=== PATIENT | male | born 1950 | race Caucasian/White ===

== ENCOUNTER 2020-03-31 10:24 | Outpatient (REF) | payer MEDICARE, SELFPAY ==
[2020-03-31 11:58] LABS: Prostate Specific Antigen 0.28 ng/mL (<0.05-4.0)
== END 2020-03-31 10:25 | disposition home or self-care (01) ==
LOC: HO.HMGCLDS 10:24
PROVIDERS: PCP Nurse Practitioner Family; Visit Provider Nurse Practitioner Family
DX: R97.20 Elevated prostate specific antigen [PSA] (principal); Z12.5 Encounter for screening for malignant neoplasm of prostate
CPT/HCPCS: 84153

== ENCOUNTER 2020-05-07 10:35 | Outpatient (REF) | payer MEDICARE, SELFPAY ==
[2020-05-07 14:56] LABS: Hematocrit 42.7 % (42-52); Hemoglobin 14.4 g/dl (14.0-18.0); Mean Corpuscular HGB Conc 33.7 g/dl (31.0-36.0); Mean Corpuscular Hemoglobin 31.7 pg (27.0-33.0); Mean Corpuscular Volume 94.1 fL (80-98); Mean Platelet Volume 10.9 fL (9.4-12.4); Platelet Count 146 X10*3/uL (160-400); Red Blood Count 4.54 X10*6/uL (4.60-5.80); Red Cell Distribution Width 12.8 % (11.0-16.0); White Blood Count 7.9 X10*3/uL (4.8-10.8)
[2020-05-07 15:10] LABS: Prothrombin Time 12.3 SEC (10.8-13.0)
[2020-05-07 15:29] LABS: Anion Gap 13 (12-20); Blood Urea Nitrogen 29 mg/dL (9-16); Carbon Dioxide 29 mmol/L (22-29); Chloride 104 mmol/L (96-108); Cholesterol 124 mg/dL; Estimated Glomerular Filt Rate > 60; Glucose Random 102 mg/dL (60-115); HDL Cholesterol 42 mg/dL; LDL Cholesterol Calculated 59 mg/dl; Potassium 4.5 mmol/l (3.3-5.1); Sodium 141 mmol/L (135-145); Triglycerides 116 mg/dL
== END 2020-05-07 10:36 | disposition home or self-care (01) ==
LOC: HO.LAB 10:35
PROVIDERS: PCP Nurse Practitioner Family; Visit Provider Internal Medicine Cardiovascular Disease
DX: I25.118 Atherosclerotic heart disease of native coronary artery with other forms of angina pectoris (principal); I10 Essential (primary) hypertension; I25.2 Old myocardial infarction; Z79.899 Other long term (current) drug therapy; Z79.82 Long term (current) use of aspirin; Z79.01 Long term (current) use of anticoagulants
CPT/HCPCS: 36415; 80048; 80061; 85027; 85610; Q3014

== ENCOUNTER → 2020-05-25 11:03 | Outpatient (BNVA) | payer MEDICARE, SELFPAY | PROVIDERS: PCP Nurse Practitioner Family; Visit Provider Nurse Practitioner Family | DX: I25.118 Atherosclerotic heart disease of native coronary artery with other forms of angina pectoris (principal); I10 Essential (primary) hypertension; E78.5 Hyperlipidemia, unspecified; Z95.1 Presence of aortocoronary bypass graft; Z79.899 Other long term (current) drug therapy | CPT/HCPCS: 99212 ==

== ENCOUNTER → 2020-07-06 12:38 | Outpatient (BNVA) | payer MEDICARE, SELFPAY | PROVIDERS: PCP Nurse Practitioner Family; Visit Provider Internal Medicine Cardiovascular Disease | DX: I25.10 Atherosclerotic heart disease of native coronary artery without angina pectoris (principal); E78.5 Hyperlipidemia, unspecified | CPT/HCPCS: 99212 ==

== ENCOUNTER 2020-07-28 08:56 | Outpatient (REF) | payer MEDICARE, SELFPAY ==
--- NOTE | ~2020-07-28 | XR_ITS ---
EXAMINATION: XR HAND, LEFT CLINICAL INFORMATION: Pain COMPARISON: None TECHNIQUE: PA, lateral, and oblique views of the left hand. FINDINGS: Bone alignment is normal. No fracture or dislocation is seen. There is arthritis at the first FPC joint and IP joints with joint space narrowing and osteophyte formation. There is also mild arthritis with joint space narrowing and small osteophyte at the first MCP joint. There is a small radiopaque soft tissue foreign body adjacent to the radial volar middle phalanx of the third finger near the PIP joint. XR/XR hand LT min 3V IMPRESSION: Arthritis at the first FPC joint and IP joints. Small soft tissue foreign body in the third finger.
[2020-07-28 11:57] LABS: Alanine Aminotransferase 22 U/L (0-40); Albumin Level 4.3 g/dL (3.5-5.0); Alkaline Phosphatase 55 U/L (39-117); Anion Gap 11 (12-20); Aspartate Amino Transferase 29 U/L (5-37); Bilirubin Total 0.8 mg/dL (0.0-1.0); Blood Urea Nitrogen 26 mg/dL (9-16); Carbon Dioxide 28 mmol/L (22-29); Chloride 106 mmol/L (96-108); Estimated Glomerular Filt Rate > 60; Glucose Fasting 87 mg/dL (60-99); Potassium 4.4 mmol/L (3.3-5.1); Sodium 141 mmol/L (135-145); Total Protein 6.9 g/dL (6.5-8.0)
[2020-07-28 12:05] LABS: Prostate Specific Antigen 0.84 ng/mL (<0.05-4.0); TSH reflex Free T4 0.64 uIU/mL (0.32-4.0)
== END 2020-07-28 08:57 | disposition home or self-care (01) ==
LOC: HO.HMGCLDS 08:56
PROVIDERS: PCP Nurse Practitioner Family; Visit Provider Nurse Practitioner Family
DX: M79.642 Pain in left hand (principal); I10 Essential (primary) hypertension; R97.20 Elevated prostate specific antigen [PSA]; Z12.5 Encounter for screening for malignant neoplasm of prostate
CPT/HCPCS: 36415; 73130; 80053; 84153; 84443

== ENCOUNTER → 2020-08-16 09:55 | Outpatient (BNVA) | payer MEDICARE, SELFPAY | PROVIDERS: Visit Provider Orthopaedic Surgery | DX: M65.332 Trigger finger, left middle finger (principal) | CPT/HCPCS: 20550; 99202; J1100 ==

== ENCOUNTER 2020-09-03 08:22 | Outpatient (REF) | payer MEDICARE, SELFPAY ==
[2020-09-03 09:36] LABS: Cholesterol 108 mg/dL; HDL Cholesterol 46 mg/dL; LDL Cholesterol Calculated 50 mg/dl; Triglycerides 60 mg/dL
== END 2020-09-03 08:23 | disposition home or self-care (01) ==
LOC: HO.LAB 08:22
PROVIDERS: PCP Nurse Practitioner Family; Visit Provider Internal Medicine Cardiovascular Disease
DX: I25.10 Atherosclerotic heart disease of native coronary artery without angina pectoris (principal)
CPT/HCPCS: 36415; 80061

== ENCOUNTER → 2020-09-06 12:53 | Outpatient (BNVA) | payer MEDICARE, SELFPAY | PROVIDERS: PCP Nurse Practitioner Family; Visit Provider Internal Medicine Cardiovascular Disease | DX: I25.10 Atherosclerotic heart disease of native coronary artery without angina pectoris (principal); I10 Essential (primary) hypertension | CPT/HCPCS: 99212 ==

== ENCOUNTER 2020-10-14 08:39 | Outpatient (REF) | payer MEDICARE, SELFPAY ==
[2020-10-14 12:15] LABS: Prostate Specific Antigen 1.12 ng/mL (<0.05-4.0)
== END 2020-10-14 08:40 | disposition home or self-care (01) ==
LOC: HO.HMGCLDS 08:39
PROVIDERS: PCP Nurse Practitioner Family; Visit Provider Nurse Practitioner Family
DX: Z12.5 Encounter for screening for malignant neoplasm of prostate (principal); C61 Malignant neoplasm of prostate
CPT/HCPCS: 36415; 84153

== ENCOUNTER 2020-12-23 08:38 | Outpatient (REF) | payer MEDICARE, SELFPAY ==
[2020-12-23 11:50] LABS: Cholesterol 110 mg/dL; HDL Cholesterol 44 mg/dL; LDL Cholesterol Calculated 54 mg/dl; Triglycerides 60 mg/dL
== END 2020-12-23 08:39 | disposition home or self-care (01) ==
LOC: HO.HMGCLDS 08:38
PROVIDERS: PCP Nurse Practitioner Family; Visit Provider Internal Medicine Cardiovascular Disease
DX: I25.10 Atherosclerotic heart disease of native coronary artery without angina pectoris (principal)
CPT/HCPCS: 36415; 80061

== ENCOUNTER 2020-12-29 08:07 | Outpatient (REF) | payer MEDICARE, SELFPAY ==
[2020-12-29 11:51] LABS: Prostate Specific Antigen Scr 1.77 ng/mL (<0.05-4.0)
== END 2020-12-29 08:08 | disposition home or self-care (01) ==
LOC: HO.HMGCLDS 08:07
PROVIDERS: PCP Nurse Practitioner Family; Visit Provider Nurse Practitioner Family
DX: Z12.5 Encounter for screening for malignant neoplasm of prostate (principal); R97.20 Elevated prostate specific antigen [PSA]
CPT/HCPCS: 36415; 84153

== ENCOUNTER → 2020-12-30 12:28 | Outpatient (BNVA) | payer MEDICARE, SELFPAY | PROVIDERS: PCP Nurse Practitioner Family; Referring Provider Nurse Practitioner Family; Visit Provider Internal Medicine Cardiovascular Disease | DX: I25.118 Atherosclerotic heart disease of native coronary artery with other forms of angina pectoris (principal); I10 Essential (primary) hypertension | CPT/HCPCS: 99212 ==

== ENCOUNTER 2021-02-02 10:38 | Outpatient (REF) | payer MEDICARE, SELFPAY ==
[2021-02-02 14:20] LABS: Alanine Aminotransferase 24 U/L (0-40); Albumin Level 4.3 g/dL (3.5-5.0); Alkaline Phosphatase 53 U/L (39-117); Anion Gap 11 (12-20); Aspartate Amino Transferase 38 U/L (5-37); Bilirubin Total 1.2 mg/dL (0.0-1.0); Blood Urea Nitrogen 30 mg/dL (9-16); Calcium 9.6 mg/dL (8.4-10.2); Carbon Dioxide 27 mmol/L (22-29); Chloride 105 mmol/L (96-108); Estimated Glomerular Filt Rate > 60; Glucose Random 91 mg/dL (60-115); Potassium 4.4 mmol/L (3.3-5.1); Sodium 139 mmol/L (135-145); Total Protein 6.7 g/dL (6.5-8.0)
[2021-02-02 14:24] LABS: Estimated Average Glucose 103 mg/dL; Hemoglobin A1c % 5.2 %
== END 2021-02-02 10:39 | disposition home or self-care (01) ==
LOC: HO.HMGCLDS 10:38
PROVIDERS: PCP Nurse Practitioner Family; Visit Provider Nurse Practitioner Family
DX: I10 Essential (primary) hypertension (principal)
CPT/HCPCS: 36415; 80053; 83036

== ENCOUNTER 2021-03-04 09:30 | Outpatient (RCR) | payer MEDICARE, SELFPAY ==
--- NOTE | 2021-03-04 10:52 | MHC.OT.DC ---
[address] [phone] F: [phone] Occupational Therapy Discharge Note Provider: Hawk Charles MD Diagnosis: Trigger finger, left middle finger Date of Surgery: Date of Evaluation: 01/12/21 Date of Discharge: 03/04/21 Treatments to Date: 9 Cancellations to Date: 0 No Shows to Date: Discharge Status: Achieved Goals Improved Function Independent with HEP Discharge Summary: Pt indep with self management of left trigger finger with use of night orthosis and digit based MCP flexion block to avoid tight fist with work type activities. PIP jt contracture improved. Pain improving . Able to self correct trigger finger with active ext with pain at 4/10. Con't constant locking with full active digit flexion , no residual pain with active ext. Electronically Signed By: Heather Bonilla OT CHT CLT Reviewed/agree with student documentation: N/A Therapist: Please Sign and return to therapist, thank you for your referral.
== END 2021-03-04 10:53 | disposition home or self-care (01) ==
LOC: HO.OT 09:30
PROVIDERS: PCP Nurse Practitioner Family; Visit Provider Nurse Practitioner Family
DX: M65.332 Trigger finger, left middle finger (principal)
CPT/HCPCS: 29130; 97035; 97110; 97140; 97165; 97760

== ENCOUNTER 2021-04-14 12:39 | Outpatient (REF) | payer MEDICARE, SELFPAY | END 2021-04-14 12:40 | disposition home or self-care (01) | LOC: HO.HMGCLDS 12:39 | PROVIDERS: PCP Nurse Practitioner Family; Visit Provider Internal Medicine | DX: Z20.822 Contact with and (suspected) exposure to COVID-19 (principal) | CPT/HCPCS: C9803; U0003; U0005 ==

== ENCOUNTER 2021-04-15 18:37 | Emergency (ER) | payer MEDICARE, SELFPAY ==
--- NOTE | ~2021-04-15 | CT_ITS ---
EXAMINATION: CT ANGIOGRAM OF THE CHEST WITH AND WITHOUT CONTRAST (CT PULMONARY ANGIOGRAM FOR PE) CLINICAL INFORMATION: Reason for Exam near syncope, SOB COMPARISON: Chest x-ray 04/15/2021 TECHNIQUE: Prior to contrast administration, noncontrast localization images were obtained. Subsequently, multidetector volumetric imaging was performed from the thoracic inlet to below the diaphragms following the administration of 85 mL Omnipaque 350 intravenous contrast. No contrast reaction reported Sagittal, coronal, and MIP oblique sagittal reformatted images were obtained on the CT workstation, uploaded to PACS, and reviewed. This CT examination was performed using dose optimization techniques as appropriate, variously including the following: *Automated exposure control *Adjustment of mA and/or kV according to patient size (this includes techniques or standardized protocols for targeted exams where dose is matched to indication/reason for exam; i.e. extremities or head) *Use of iterative reconstruction technique Total exam dose-length product 312 mGy-cm FINDINGS: QUALITY OF STUDY/CONTRAST BOLUS: Satisfactory. PULMONARY ARTERIES: No central or segmental pulmonary emboli. THORACIC AORTA: No aneurysm or dissection. LUNG: No focal consolidation, nodules or masses. PLEURA: No pleural effusion or pneumothorax. MEDIASTINUM: Normal heart size. Status post CABG. No pericardial effusion. No hilar or mediastinal lymphadenopathy. No evidence of septal bowing or right heart strain. CHEST WALL/AXILLA: No axillary or internal mammary lymphadenopathy. OSSEOUS STRUCTURES: No acute or suspicious osseous abnormality. Status post median sternotomy. Multilevel degenerative spondylosis of the dorsal spine. UPPER ABDOMEN: Unremarkable. No reflux of contrast into the hepatic veins to suggest elevated right heart pressures. CT/CT angio chest PE protocol IMPRESSION: No acute abnormality the chest. No evidence of pulmonary embolism. VTE: negative
--- NOTE | ~2021-04-15 | XR_ITS ---
EXAMINATION: XR CHEST CLINICAL INFORMATION: Near syncope. Covid positive. COMPARISON: 04/18/2016 TECHNIQUE: Frontal view of the chest was obtained. FINDINGS: Median sternotomy wires appear intact. Surgical clips overlie the mediastinum. The lungs are well expanded. There is no focal consolidation, edema, or effusion. No pneumothorax. The cardiomediastinal silhouette is within normal limits. No acute osseous abnormality. XR/XR chest 1V IMPRESSION: Clear lungs.
[2021-04-15 18:56] VITALS: BP 138/86; PULSE 67; RESP 18; TEMP 38.1; O2SAT 96; BMI 26.5
--- NOTE | 2021-04-15 19:01 | ECG_ITS ---
Test Reason : NEAR SYNCOPE Blood Pressure : / mmHG Vent. Rate : 067 BPM Atrial Rate : 067 BPM P-R Int : 144 ms QRS Dur : 088 ms QT Int : 448 ms P-R-T Axes : 047 028 016 degrees QTc Int : 473 ms Normal sinus rhythm Nonspecific T wave abnormality Anterolateral leads Abnormal ECG When compared with ECG of 02-OCT-2013 20:08, Nonspecific T wave abnormality, improved in Anterior leads T wave amplitude has decreased in Lateral leads Referred By: Generic ED Physician Electronically Signed By:SAPPHIRE ENRIQUEZ MD
--- NOTE | 2021-04-15 19:26 | ED.GENADULT ---
HPI - General Adult General Chief complaint: General Medical Stated complaint: Fatigue +Covid Time Seen by Provider: 04/15/21 19:22 Source: patient Mode of arrival: ambulatory Limitations: no limitations History of Present Illness HPI narrative: 70-year-old male with history CAD s/p CABG, IA s/p stent, HLD, post-op atrial fibrillation, history of prostate cancer currently getting treated [facility] with plans to start radiation in June who presents to the ER per recommendations of his primary care doctor with reports of presyncope yesterday. He was just diagnosed with COVID-19 yesterday. He reports a near syncopal episode yesterday where he had tunnel vision and felt like things were going black after he got up from the couch and went to the kitchen to get himself some soda. He lowered himself to the ground and symptoms resolved with rest. He has not been eating and drinking normally. Today he only had half a pancake and went right through him, he had an episode of diarrhea that was nonbloody. No abdominal pain. Lack of appetite noted. He also has other signs and symptoms of COVID-19 including loss of appetite, fevers, loss of taste nasal congestion and body aches. He denies any shortness of breath or chest pain. He is extremely fatigued and tired which are his biggest complaints. He reports a history of syncope several years ago after his cardiac surgery when he was started on multiple new cardiac medications. MD complaint: pre-syncope Onset (ago): day(s) (1) Location: head Radiation: non-radiation Severity: moderate Relieving factors: rest Exacerbating factors: movement Associated symptoms: fever/chills, headaches, loss of appetite, malaise and weakness Treatments prior to arrival: none Related Data Home Medications Medication Instructions Recorded Confirmed aspirin 81 mg tablet,delayed 81 mg PO DAILY 03/30/20 12/30/20 release (Adult Aspirin Regimen) multivitamin 1 tab PO DAILY 03/30/20 12/30/20 bicalutamide 50 mg tablet 50 mg PO DAILY 02/03/21 Previous Rx's Medication Instructions Recorded nitroglycerin 0.4 mg sublingual 0.4 mg SUBLINGUAL Q5M PRN #25 tab 09/22/20 tablet (Nitrostat) atorvastatin 80 mg tablet 80 mg PO DAILY #90 tab 12/01/20 metoprolol succinate 25 mg 25 mg PO DAILY #90 tab 12/01/20 tablet,extended release 24 hr isosorbide mononitrate 30 mg 30 mg PO DAILY #30 tab 02/05/21 tablet,extended release 24 hr ezetimibe 10 mg tablet 10 mg PO DAILY #90 tab 03/07/21 clopidogrel 75 mg tablet (Plavix) 75 mg PO DAILY 90 Days #90 tab 03/31/21 amlodipine 5 mg tablet (Norvasc) 5 mg PO DAILY #30 tab 04/05/21 Allergies Allergy/AdvReac Type Severity Reaction Status Date / Time No Known Allergies Allergy Verified 04/15/21 18:56 Review of Systems Review of Systems: Constitutional: No Fever, No Chills ENT/Mouth: No sore throat, No Rhinorrhea, No Swallowing Difficulty Eyes: No Eye Pain, No Swelling, No Redness Cardiovascular: No Chest Pain, No SOB, No Orthopnea, No Edema Respiratory: No Cough, No Sputum, No Wheezing, + dyspnea (very mild w/ exertion) Gastrointestinal: + Nausea, No Vomiting, + Diarrhea, No abdominal Pain, No Hematochezia, No Melena Genitourinary: No Dysuria, No Urinary Frequency, No Hematuria Musculoskeletal: No joint pain, + Myalgias Skin: No Skin Lesions, No rash Neuro: + Weakness, No Numbness, + Dizziness, + Headache Psych: No Anxiety/Panic, No Depression Heme/Lymph: No Bruising, No Lymphadenopathy Endocrine: No Polyuria, No Polydipsia PMFSH Past Medical History Medical History (Updated 04/15/21 @ 22:59 by KVNG Guardado) Anemia CAD (coronary artery disease) Chronic renal disease Dyslipidemia HTN (hypertension) NSTEMI (non-ST elevated myocardial infarction) PAF (paroxysmal atrial fibrillation) Prostate CA Surgical History Hx of CABG (~08/2018) Hx of prostatectomy S/P cardiac cath (~05/2020) Stented coronary artery Family History Family History Father CVD (cardiovascular disease) Mother No problems noted. Brother CVD (cardiovascular disease) Social History Social History Advance Directives: No Physical Exam Vital Signs: Vital Signs: Last Vital Signs Temp 99.3 F 04/16/21 00:36 Pulse 48 L 04/16/21 00:36 Resp 18 04/16/21 00:36 BP 135/66 04/16/21 00:36 Pulse Ox 96 04/16/21 00:36 Body Mass Index 26.5 Appearance: Alert. Oriented X3. No acute distress. He appears well. Eyes: Pupils equal, round and reactive to light. ENT: Pharynx normal. Neck: Normal inspection. Neck supple. CVS: Normal heart rate and rhythm. Pulses normal. Respiratory: No respiratory distress. Breath sounds normal. Abdomen: Soft and nontender. +BS x4 Skin: Skin warm and dry. Normal skin color. Normal skin turgor. No rashes. Extremities: No lower extremity edema. No calf tenderness. Neuro: Oriented X 3. No motor deficit. No sensory deficit. Steady on his feet. Course Course Course Narrative: 70-year-old male with a history of CAD status post stent and CABG, history of prostate cancer status post prostatectomy with plan to start radiation who presents to the ER with presyncope in the setting of being diagnosed with COVID-19. He feels much better than he does yesterday. His vital signs are reassuring, although he does have some low-grade fever. He has no chest pain or shortness of breath. He is at risk for pulmonary embolism with his active prostate cancer and COVID-19 status. Will need to rule out PE. Will get EKG, orthostatic vital signs and basic lab workup. He appears well. Reevaluation(s) Reevaluation #1: Orthostatic vital signs are positive with a decrease in systolic blood pressure from 159 supine to 101 standing. Heart rate remained stable 65. He was not dizzy or lightheaded. He is getting IV fluids. Will plan to repeat after IV hydration. D-dimer was elevated and 374. CT of the chest does not show any PEs, lungs are clear. Will re-evaluate orthostatic vital signs after IV fluids. He is hopeful to be able to be discharged home. Reevaluation #2: Repeat orthostatic vital signs after 2 L IV fluids remain positive, although less so. His blood pressure dropped from 130 to 100 systolic. Heart rates remained stable. He remained asymptomatic. Given his COVID positive state and inability to aggressively hydrate will hold off on further IV fluids at this time. He feels much better when like to be discharged home. We discussed importance of increasing oral hydration and eating adequate PO. Comfortable with discharge home with plan to increase oral hydration, hold his antihypertensives for the next 2 days and monitor his blood pressures at home. He agrees to come back to the ER if he feels any symptoms of pre-syncope again. He will follow-up with his doctor early next week. Stable for discharge home. Medical Decision Making Lab Data Result diagrams: 04/15/21 20:18 04/15/21 20:18 Labs: Lab Results 04/15/21 04/15/21 04/15/21 Range/Units 20:18 20:18 20:18 WBC 8.6 (4.8-10.8) X10*3/uL RBC 4.77 (4.60-5.80) X10*6/uL Hgb 15.3 (14.0-18.0) g/dl Hct 44.2 (42.0-52.0) % MCV 92.7 (80.0-98.0) fL MCH 32.1 (27.0-33.0) pg MCHC 34.6 (31.0-36.0) g/dl RDW 13.1 (11.0-16.0) % Plt Count 96 L (160-400) X10*3/uL MPV 11.0 (9.4-12.4) fL Immature Gran % (Auto) 0.2 (0.0-0.4) % Neut % (Auto) 72.5 (45-73) % Lymph % (Auto) 16.2 L (20-40) % [place] % (Auto) 11.0 (2-11) % Eos % (Auto) 0.0 (0-4) % Baso % (Auto) 0.1 (0-2) % Lymph # (Auto) 1.4 (1.2-4.9) X10*3/uL [place] # (Auto) 1.0 (0.1-1.2) X10*3/uL Eos # (Auto) 0.0 (0.0-0.4) X10*3/uL Baso # (Auto) 0.0 (0.0-0.2) X10*3/uL Abs Immat Gran (auto) 0.02 (0.00-0.03) X10*3/uL Absolute Neuts (auto) 6.3 (2.0-8.3) x10*3/uL Absolute Nucleated RBC 0.000 (0.0-0.012) X10*3/uL Nucleated RBC % (auto) 0.0 (0.0-0.2) /100WBC Smear Tech's Comments VERIFIED D-Dimer NG/ML Sodium 138 (135-145) mmol/L Potassium 4.2 (3.3-5.1) mmol/L Chloride 103 (96-108) mmol/L Carbon Dioxide 25 (22-29) mmol/L Anion Gap 14 (12-20) BUN 35 H (9-16) mg/dL Creatinine 1.59 H (0.5-1.4) mg/dL Estim Creat Clear Calc 44.6 Estimated GFR 43 Random Glucose 104 (60-115) mg/dL Calcium 8.9 D (8.4-10.2) mg/dL Total Bilirubin (0.0-1.0) mg/dL Direct Bilirubin (0.0-0.5) mg/dL AST (5-37) U/L ALT (0-40) U/L Alkaline Phosphatase (39-117) U/L Troponin I High Sens 21.5 (<3.5-35.0) ng/L C-Reactive Protein (< or = 0.50) mg/dL Total Protein (6.5-8.0) g/dL Albumin (3.5-5.0) g/dL 04/15/21 04/15/21 Range/Units 20:18 20:18 WBC (4.8-10.8) X10*3/uL RBC (4.60-5.80) X10*6/uL Hgb (14.0-18.0) g/dl Hct (42.0-52.0) % MCV (80.0-98.0) fL MCH (27.0-33.0) pg MCHC (31.0-36.0) g/dl RDW (11.0-16.0) % Plt Count (160-400) X10*3/uL MPV (9.4-12.4) fL Immature Gran % (Auto) (0.0-0.4) % Neut % (Auto) (45-73) % Lymph % (Auto) (20-40) % [place] % (Auto) (2-11) % Eos % (Auto) (0-4) % Baso % (Auto) (0-2) % Lymph # (Auto) (1.2-4.9) X10*3/uL [place] # (Auto) (0.1-1.2) X10*3/uL Eos # (Auto) (0.0-0.4) X10*3/uL Baso # (Auto) (0.0-0.2) X10*3/uL Abs Immat Gran (auto) (0.00-0.03) X10*3/uL Absolute Neuts (auto) (2.0-8.3) x10*3/uL Absolute Nucleated RBC (0.0-0.012) X10*3/uL Nucleated RBC % (auto) (0.0-0.2) /100WBC Smear Tech's Comments D-Dimer 374 NG/ML Sodium (135-145) mmol/L Potassium (3.3-5.1) mmol/L Chloride (96-108) mmol/L Carbon Dioxide (22-29) mmol/L Anion Gap (12-20) BUN (9-16) mg/dL Creatinine (0.5-1.4) mg/dL Estim Creat Clear Calc Estimated GFR Random Glucose (60-115) mg/dL Calcium (8.4-10.2) mg/dL Total Bilirubin 0.7 (0.0-1.0) mg/dL Direct Bilirubin 0.3 (0.0-0.5) mg/dL AST 55 H (5-37) U/L ALT 35 (0-40) U/L Alkaline Phosphatase 48 (39-117) U/L Troponin I High Sens (<3.5-35.0) ng/L C-Reactive Protein 1.05 H (< or = 0.50) mg/dL Total Protein 6.9 (6.5-8.0) g/dL Albumin 4.1 (3.5-5.0) g/dL ECG Data Attestation: I personally reviewed and interpreted this ECG as follows: Prior ECG tracings: available for review Interpretation: normal sinus rhythm, HR 67 bpm, normal NV interval, No ST segment elevations or depressions. Critical Care Time Critical Care Time Critical Care Time: Yes Total Critical Care Time: 40 Attestation: I have personally provided critical care time exclusive of time spent on separately billable procedures. Time includes review of lab data, radiology results, discussion with consultants, and monitoring for potential decompensation. Intervention performed as documented. Discharge Plan Discharge Clinical Impression: COVID-19, Orthostatic hypotension Patient Disposition: Home, Self-Care Instructions: Covid-19 Viral Syndrome and Novel Coronavirus (ED) Hey/Ath, Dehydration (ED) Additional Instructions: Your CT scan today did not show any blood clots in her lungs. Your lungs are clear. This is a good prognostic factor for COVID. Your labs show dehydration and mild kidney injury due to dehydration. Your blood pressure also dropped significantly when you went from lying to standing, this is the most likely cause your sensation of almost passing out yesterday. This should improve after IV fluids and a increasing oral hydration at home. Recommend following up with your doctor for repeat blood work to re-check your kidneys. Recommend holding her blood pressure medications for the next 2 days. If you have a blood pressure cuff at home recommend monitoring her blood pressure in the morning and again at night. Drink plenty of water and Gatorade and make sure you are eating adequately. If you feel dizzy, lightheaded or like you may pass out call 911 or come back to the ER for further evaluation. Prescriptions: No Action nitroglycerin [Nitrostat] 0.4 mg tablet, sublingual 0.4 mg sublingual Q5M PRN (Reason: chest pain) Qty: 25 RF: 2 atorvastatin 80 mg tablet 80 mg PO DAILY Qty: 90 RF: 3 metoprolol succinate 25 mg tablet extended release 24 hr 25 mg PO DAILY Qty: 90 RF: 3 isosorbide mononitrate 30 mg tablet extended release 24 hr 30 mg PO DAILY Qty: 30 RF: 5 ezetimibe 10 mg tablet 10 mg PO DAILY Qty: 90 RF: 3 clopidogrel [Plavix] 75 mg tablet 75 mg PO DAILY 90 Days Qty: 90 RF: 3 amlodipine [Norvasc] 5 mg tablet 5 mg PO DAILY Qty: 30 RF: 5 aspirin [Adult Aspirin Regimen] 81 mg tablet,delayed release (DR/EC) 81 mg PO DAILY RF: 0 multivitamin Tablet 1 tab PO DAILY RF: 0
[2021-04-15 20:24] LABS: Basophils Percent Auto 0.1 % (0-2); Hemoglobin 15.3 g/dl (14.0-18.0); MANUAL DIFF FLAG SCAN; Mean Corpuscular Hemoglobin 32.1 pg (27.0-33.0); PLT CLUMP 1; Red Blood Count 4.77 X10*6/uL (4.60-5.80); Red Cell Distribution Width 13.1 % (11.0-16.0); SCAN SMEAR FLAG 1
[2021-04-15 20:26] LABS: Hematocrit 44.2 % (42.0-52.0); Imm Gran Abs Auto 0.02 X10*3/uL (0.00-0.03); Imm Gran Pct Auto 0.2 % (0.0-0.4); Lymphocytes Absolute Auto 1.4 X10*3/uL (1.2-4.9); Lymphocytes Percent Auto 16.2 % (20-40); Mean Corpuscular HGB Conc 34.6 g/dl (31.0-36.0); Mean Corpuscular Volume 92.7 fL (80.0-98.0); Neutrophils Absolute Auto 6.3 x10*3/uL (2.0-8.3); Neutrophils Percent Auto 72.5 % (45-73); White Blood Count 8.6 X10*3/uL (4.8-10.8)
[2021-04-15 20:27] LABS: Platelet Count 96 X10*3/uL (160-400)
[2021-04-15 20:32] LABS: D Dimer 374 NG/ML
[2021-04-15 20:33] VITALS: BP 159/84; PULSE 65
[2021-04-15 20:34] VITALS: BP 101/57; BP 135/80; PULSE 60; PULSE 65
[2021-04-15 20:35] VITALS: BP 101/57; PULSE 65; RESP 20; TEMP 38.1; O2SAT 98
[2021-04-15 20:37] LABS: Anion Gap 14 (12-20); Blood Urea Nitrogen 35 mg/dL (9-16); Calcium 8.9 mg/dL (8.4-10.2); Carbon Dioxide 25 mmol/L (22-29); Chloride 103 mmol/L (96-108); Creatinine Clr Calc Pharmacy 44.6; Estimated Glomerular Filt Rate 43; Glucose Random 104 mg/dL (60-115); Potassium 4.2 mmol/L (3.3-5.1); Sodium 138 mmol/L (135-145)
[2021-04-15 20:42] LABS: Alanine Aminotransferase 35 U/L (0-40); Albumin Level 4.1 g/dL (3.5-5.0); Alkaline Phosphatase 48 U/L (39-117); Aspartate Amino Transferase 55 U/L (5-37); Bilirubin Direct 0.3 mg/dL (0.0-0.5); Bilirubin Total 0.7 mg/dL (0.0-1.0); C Reactive Protein 1.05 mg/dL (< or = 0.50); Total Protein 6.9 g/dL (6.5-8.0)
[2021-04-15 20:43] LABS: Troponin-I High Sensitivity 21.5 ng/L (<3.5-35.0)
[2021-04-15 20:52] LABS: SLIDE REVIEW VERIFIED
[2021-04-15] MEDS: iohexoL 350 MG/ML 100 ML INFUS..BTL IV (20:59)
[2021-04-15] MEDS: Acetaminophen 325 MG TABLET 650 MG PO (21:07)
[2021-04-15] MEDS: 0.9 % Sodium Chloride 1,000 ML 999 ML IVCONT ×2 (21:07→22:53)
[2021-04-15 22:00] VITALS: BP 121/65; PULSE 52; RESP 16; TEMP 37.2; O2SAT 95
[2021-04-15 23:51] VITALS: BP 135/66; PULSE 48
[2021-04-16 00:36] VITALS: BP 104/61; BP 105/64; BP 135/66; PULSE 48; PULSE 50; PULSE 56; RESP 18; TEMP 37.4; O2SAT 96
== END 2021-04-16 01:07 | disposition home or self-care (01) ==
PROVIDERS: Physician Assistant; Emergency Provider Internal Medicine; PCP Nurse Practitioner Family
DX: U07.1 COVID-19 (principal); I95.1 Orthostatic hypotension; I25.10 Atherosclerotic heart disease of native coronary artery without angina pectoris; I12.9 Hypertensive chronic kidney disease with stage 1 through stage 4 chronic kidney disease, or unspecified chronic kidney disease; N18.9 Chronic kidney disease, unspecified; I48.0 Paroxysmal atrial fibrillation; C61 Malignant neoplasm of prostate; I25.2 Old myocardial infarction; Z95.1 Presence of aortocoronary bypass graft; Z95.5 Presence of coronary angioplasty implant and graft
CPT/HCPCS: 36415; 71045; 71275; 80048; 80076; 84484; 85025; 85379; 86140; 93005; 96360; 96361; 99284; 99291; Q9967

== ENCOUNTER 2021-04-18 12:00 | Emergency (ER) | payer MEDICARE, SELFPAY ==
[2021-04-18] VITALS (7 sets, daily range): BP systolic 86–195; BP diastolic 51–91; PULSE 47–69; RESP 16–18; TEMP 36.8–37.3; O2SAT 95–98; BMI 26.5
--- NOTE | 2021-04-18 15:06 | ED.GENADULT ---
HPI - General Adult General Chief complaint: General Medical Stated complaint: low blood pressure Time Seen by Provider: 04/18/21 14:55 Source: patient and old records reviewed History of Present Illness HPI narrative: Patient with known COVID positive status. For symptom was approximately 8 days ago. He was diagnosed 4 days ago when visited the emergency department. He states his main complaint has been some diarrhea and feeling weak. He denies any respiratory symptoms such as shortness of breath or significant cough. No chest pain. He presents today because he felt weak and at home he took his blood pressure and it was systolic of 70. He states when he was here last time he was dehydrated and received 2 L of IV fluid. That made him temporarily feels significantly better. He states he is still having some diarrhea approximately 2-3 episodes today. Less than it was before. His p.o. intake is decreased and he states he eats once a day and has maybe 5 drinks of water. He states he is not urinating a lot. In review of his records from his visit 4 days ago his creatinine was little bit elevated. Head CT scan at that time which showed no evidence of PE or pulmonary parenchymal disease. He denies dyspnea. Related Data Home Medications Medication Instructions Recorded Confirmed aspirin 81 mg tablet,delayed 81 mg PO DAILY 03/30/20 12/30/20 release (Adult Aspirin Regimen) multivitamin 1 tab PO DAILY 03/30/20 12/30/20 bicalutamide 50 mg tablet 50 mg PO DAILY 02/03/21 Previous Rx's Medication Instructions Recorded nitroglycerin 0.4 mg sublingual 0.4 mg SUBLINGUAL Q5M PRN #25 tab 09/22/20 tablet (Nitrostat) atorvastatin 80 mg tablet 80 mg PO DAILY #90 tab 12/01/20 metoprolol succinate 25 mg 25 mg PO DAILY #90 tab 12/01/20 tablet,extended release 24 hr isosorbide mononitrate 30 mg 30 mg PO DAILY #30 tab 02/05/21 tablet,extended release 24 hr ezetimibe 10 mg tablet 10 mg PO DAILY #90 tab 03/07/21 clopidogrel 75 mg tablet (Plavix) 75 mg PO DAILY 90 Days #90 tab 03/31/21 amlodipine 5 mg tablet (Norvasc) 5 mg PO DAILY #30 tab 04/05/21 Allergies Allergy/AdvReac Type Severity Reaction Status Date / Time No Known Allergies Allergy Verified 04/18/21 12:24 Review of Systems Constitutional: Comments: Feeling generally weak tired. No fevers or body aches ENT: Comments: No sore throat Cardiovascular: Comments: No chest pain Respiratory: Comments: No cough or shortness of breath Gastrointestinal: Comments: No abdominal pain or nausea vomiting. Decreased appetite. Positive diarrhea Musculoskeletal: Comments: No peripheral edema or calf tenderness Integumentary/Breasts: Comments: No rash Hematologic/Lymphatic: Comments: History of prostate cancer and is due for radiation therapy. He is currently on hormonal therapy but no other chemotherapy [facility] Past Medical History Medical History (Updated 04/18/21 @ 19:02 by Faustino Salgado MD) Anemia CAD (coronary artery disease) Chronic renal disease Dyslipidemia HTN (hypertension) NSTEMI (non-ST elevated myocardial infarction) PAF (paroxysmal atrial fibrillation) Prostate CA Surgical History Hx of CABG (~08/2018) Hx of prostatectomy S/P cardiac cath (~05/2020) Stented coronary artery Family History Family History Father CVD (cardiovascular disease) Mother No problems noted. Brother CVD (cardiovascular disease) Social History Social History Advance Directives: No Physical Exam Vital Signs: Vital Signs: Last Vital Signs Temp 99.0 F 04/18/21 19:35 Pulse 55 04/18/21 19:35 Resp 18 04/18/21 19:35 BP 165/83 H 04/18/21 19:35 Pulse Ox 96 04/18/21 19:35 Body Mass Index 26.5 Const: Other: Awake and alert no acute distress Resp: Other: Clear and equal bilaterally without wheezes rales or rhonchi Cardio: Other: Regular rate and rhythm without murmurs rubs or gallops GI: Other: Soft nontender nondistended with normoactive bowel sounds Skin: Other: Warm pink and dry without rash Neuro: Other: Awake alert and oriented without focal neuro deficits Extrem: Other: No pedal edema or calf tenderness Course Course Course Narrative: Hypotension Dehydration Renal failure COVID-19 infection Review of old records shows workup as mentioned in HPI. Given repeat an similar symptoms, I do not feel he needs another workup for thromboembolic disease. I will repeat his labs cyst his creatinine was mildly elevated and we will reassess for hydration status. Will order 1 L of IV fluids and reassess. 5:54 p.m.. Patient is orthostatic still. One more L of IV fluid ordered. 7:01 p.m.. Patient states he is feeling considerably better after the 2nd L of fluid. His blood pressure, however, is now elevated. He states he normally takes amlodipine but did not take it today as he was not feeling good. Will dose him with his typical 5 mg and discharged home Medical Decision Making Lab Data Result diagrams: 04/18/21 15:50 04/18/21 15:50 Labs: Lab Results 04/18/21 04/18/21 Range/Units 15:50 15:50 WBC 5.2 (4.8-10.8) X10*3/uL RBC 4.40 L (4.60-5.80) X10*6/uL Hgb 14.0 (14.0-18.0) g/dl Hct 40.5 L (42.0-52.0) % MCV 92.0 (80.0-98.0) fL MCH 31.8 (27.0-33.0) pg MCHC 34.6 (31.0-36.0) g/dl RDW 12.7 (11.0-16.0) % Plt Count 74 L (160-400) X10*3/uL MPV 11.2 (9.4-12.4) fL Immature Gran % (Auto) 0.4 (0.0-0.4) % Neut % (Auto) 66.2 (45-73) % Lymph % (Auto) 20.7 (20-40) % [place] % (Auto) 12.5 H (2-11) % Eos % (Auto) 0.0 (0-4) % Baso % (Auto) 0.2 (0-2) % Lymph # (Auto) 1.1 L (1.2-4.9) X10*3/uL [place] # (Auto) 0.7 (0.1-1.2) X10*3/uL Eos # (Auto) 0.0 (0.0-0.4) X10*3/uL Baso # (Auto) 0.0 (0.0-0.2) X10*3/uL Abs Immat Gran (auto) 0.02 (0.00-0.03) X10*3/uL Absolute Neuts (auto) 3.5 (2.0-8.3) x10*3/uL Absolute Nucleated RBC 0.000 (0.0-0.012) X10*3/uL Nucleated RBC % (auto) 0.0 (0.0-0.2) /100WBC Sodium 138 (135-145) mmol/L Potassium 4.1 (3.3-5.1) mmol/L Chloride 102 (96-108) mmol/L Carbon Dioxide 28 (22-29) mmol/L Anion Gap 12 (12-20) BUN 26 H (9-16) mg/dL Creatinine 1.35 (0.5-1.4) mg/dL Estim Creat Clear Calc 52.5 Estimated GFR 52 Random Glucose 98 (60-115) mg/dL Calcium 8.3 L D (8.4-10.2) mg/dL Total Bilirubin 0.9 (0.0-1.0) mg/dL AST 48 H (5-37) U/L ALT 30 (0-40) U/L Alkaline Phosphatase 42 (39-117) U/L Total Protein 6.1 L (6.5-8.0) g/dL Albumin 3.7 (3.5-5.0) g/dL Discharge Plan Discharge Clinical Impression: Dehydration, COVID-19 Patient Disposition: Home, Self-Care Instructions: Dehydration (ED), COVID-19 (Coronavirus Disease 2019) (ED) Additional Instructions: Continue to take all current medications. Be sure to drink plenty of liquids. Prescriptions: No Action nitroglycerin [Nitrostat] 0.4 mg tablet, sublingual 0.4 mg sublingual Q5M PRN (Reason: chest pain) Qty: 25 RF: 2 atorvastatin 80 mg tablet 80 mg PO DAILY Qty: 90 RF: 3 metoprolol succinate 25 mg tablet extended release 24 hr 25 mg PO DAILY Qty: 90 RF: 3 isosorbide mononitrate 30 mg tablet extended release 24 hr 30 mg PO DAILY Qty: 30 RF: 5 ezetimibe 10 mg tablet 10 mg PO DAILY Qty: 90 RF: 3 clopidogrel [Plavix] 75 mg tablet 75 mg PO DAILY 90 Days Qty: 90 RF: 3 amlodipine [Norvasc] 5 mg tablet 5 mg PO DAILY Qty: 30 RF: 5 aspirin [Adult Aspirin Regimen] 81 mg tablet,delayed release (DR/EC) 81 mg PO DAILY RF: 0 multivitamin Tablet 1 tab PO DAILY RF: 0 Interventions: ED Discharge Assessment Last Done: 04/18/21 19:53 Discharge Date/Time: 04/18/21 19:54
[2021-04-18 15:59] LABS: MANUAL DIFF FLAG NO
[2021-04-18 16:11] LABS: Basophils Percent Auto 0.2 % (0-2); Hematocrit 40.5 % (42.0-52.0); Imm Gran Abs Auto 0.02 X10*3/uL (0.00-0.03); Imm Gran Pct Auto 0.4 % (0.0-0.4); Lymphocytes Absolute Auto 1.1 X10*3/uL (1.2-4.9); Lymphocytes Percent Auto 20.7 % (20-40); Mean Corpuscular HGB Conc 34.6 g/dl (31.0-36.0); Mean Corpuscular Hemoglobin 31.8 pg (27.0-33.0); Mean Platelet Volume 11.2 fL (9.4-12.4); Monocytes Absolute Auto 0.7 X10*3/uL (0.1-1.2); Monocytes Percent Auto 12.5 % (2-11); Neutrophils Absolute Auto 3.5 x10*3/uL (2.0-8.3); Neutrophils Percent Auto 66.2 % (45-73); Platelet Count 74 X10*3/uL (160-400); Red Cell Distribution Width 12.7 % (11.0-16.0); White Blood Count 5.2 X10*3/uL (4.8-10.8)
[2021-04-18] MEDS: 0.9 % Sodium Chloride 1,000 ML 999 ML IV ×2 (16:14→17:57)
[2021-04-18 16:20] LABS: Alanine Aminotransferase 30 U/L (0-40); Albumin Level 3.7 g/dL (3.5-5.0); Alkaline Phosphatase 42 U/L (39-117); Anion Gap 12 (12-20); Aspartate Amino Transferase 48 U/L (5-37); Bilirubin Total 0.9 mg/dL (0.0-1.0); Blood Urea Nitrogen 26 mg/dL (9-16); Calcium 8.3 mg/dL (8.4-10.2); Carbon Dioxide 28 mmol/L (22-29); Chloride 102 mmol/L (96-108); Creatinine Clr Calc Pharmacy 52.5; Estimated Glomerular Filt Rate 52; Glucose Random 98 mg/dL (60-115); Potassium 4.1 mmol/L (3.3-5.1); Sodium 138 mmol/L (135-145); Total Protein 6.1 g/dL (6.5-8.0)
[2021-04-18] MEDS: amLODIPine Besylate 5 MG TABLET PO (19:38)
== END 2021-04-18 19:54 | disposition home or self-care (01) ==
PROVIDERS: Emergency Provider Emergency Medicine; PCP Nurse Practitioner Family
DX: U07.1 COVID-19 (principal); E86.0 Dehydration; I10 Essential (primary) hypertension; I48.0 Paroxysmal atrial fibrillation; I25.10 Atherosclerotic heart disease of native coronary artery without angina pectoris; I25.2 Old myocardial infarction
CPT/HCPCS: 36415; 80053; 85025; 96360; 96361; 99284

== ENCOUNTER 2021-05-13 09:01 | Outpatient (REF) | payer MEDICARE, SELFPAY ==
[2021-05-13 11:43] LABS: Appearance Urine CLEAR; Color Urine YELLOW; Glucose Urine UA NEG (NEG); Leukocyte Esterase Urine NEG (NEG); MANUAL DIFF FLAG NO; Nitrite Urine NEG (NEG); PH 5.5 (5.0-8.0); Specific Gravity - Urine >= 1.030 (1.005-1.025); Urine Blood NEG (NEG); Urine Ketones NEG (NEG); Urine Protein NEG (NEG-TRACE)
[2021-05-13 11:51] LABS: Basophils Percent Auto 0.5 % (0-2); Eosinophils Absolute Auto 0.2 X10*3/uL (0.0-0.4); Eosinophils Percent Auto 3.4 % (0-4); Hematocrit 36.2 % (42.0-52.0); Hemoglobin 12.4 g/dl (14.0-18.0); Imm Gran Abs Auto 0.04 X10*3/uL (0.00-0.03); Imm Gran Pct Auto 0.7 % (0.0-0.4); Lymphocytes Absolute Auto 1.6 X10*3/uL (1.2-4.9); Lymphocytes Percent Auto 27.5 % (20-40); Mean Corpuscular HGB Conc 34.3 g/dl (31.0-36.0); Mean Corpuscular Hemoglobin 33.6 pg (27.0-33.0); Mean Corpuscular Volume 98.1 fL (80.0-98.0); Mean Platelet Volume 11.3 fL (9.4-12.4); Monocytes Absolute Auto 0.9 X10*3/uL (0.1-1.2); Monocytes Percent Auto 14.6 % (2-11); Neutrophils Absolute Auto 3.1 x10*3/uL (2.0-8.3); Neutrophils Percent Auto 53.3 % (45-73); Platelet Count 134 X10*3/uL (160-400); Red Blood Count 3.69 X10*6/uL (4.60-5.80); Red Cell Distribution Width 13.8 % (11.0-16.0); White Blood Count 5.9 X10*3/uL (4.8-10.8)
[2021-05-13 12:13] LABS: Alanine Aminotransferase 25 U/L (0-40); Albumin Level 3.8 g/dL (3.5-5.0); Alkaline Phosphatase 63 U/L (39-117); Anion Gap 14 (12-20); Aspartate Amino Transferase 27 U/L (5-37); Bilirubin Total 0.9 mg/dL (0.0-1.0); Blood Urea Nitrogen 21 mg/dL (9-16); Calcium 9.2 mg/dL (8.4-10.2); Carbon Dioxide 25 mmol/L (22-29); Chloride 109 mmol/L (96-108); Cholesterol 148 mg/dL; Estimated Glomerular Filt Rate 57; Glucose Fasting 88 mg/dL (60-99); HDL Cholesterol 55 mg/dL; LDL Cholesterol Calculated 76 mg/dl; Potassium 4.1 mmol/L (3.3-5.1); Sodium 144 mmol/L (135-145); Total Protein 6.6 g/dL (6.5-8.0); Triglycerides 85 mg/dL
[2021-05-13 12:35] LABS: TSH reflex Free T4 0.55 uIU/mL (0.32-4.0)
== END 2021-05-13 09:02 | disposition home or self-care (01) ==
LOC: HO.HMGCLDS 09:01
PROVIDERS: PCP Nurse Practitioner Family; Visit Provider Nurse Practitioner Family
DX: U07.1 COVID-19 (principal)
CPT/HCPCS: 36415; 80053; 80061; 81003; 84443; 85025

== ENCOUNTER 2021-05-20 10:26 | Outpatient (REF) | payer MEDICARE, SELFPAY ==
[2021-05-20 11:26] LABS: MANUAL DIFF FLAG NO
[2021-05-20 11:38] LABS: Basophils Percent Auto 0.6 % (0-2); Eosinophils Absolute Auto 0.1 X10*3/uL (0.0-0.4); Hemoglobin 12.4 g/dl (14.0-18.0); Imm Gran Abs Auto 0.03 X10*3/uL (0.00-0.03); Imm Gran Pct Auto 0.5 % (0.0-0.4); Lymphocytes Absolute Auto 1.6 X10*3/uL (1.2-4.9); Lymphocytes Percent Auto 24.7 % (20-40); Mean Corpuscular HGB Conc 34.4 g/dl (31.0-36.0); Mean Corpuscular Hemoglobin 33.4 pg (27.0-33.0); Mean Platelet Volume 11.1 fL (9.4-12.4); Monocytes Absolute Auto 0.9 X10*3/uL (0.1-1.2); Monocytes Percent Auto 14.1 % (2-11); Neutrophils Absolute Auto 3.7 x10*3/uL (2.0-8.3); Neutrophils Percent Auto 58.1 % (45-73); Platelet Count 155 X10*3/uL (160-400); Red Blood Count 3.71 X10*6/uL (4.60-5.80); Red Cell Distribution Width 13.8 % (11.0-16.0); White Blood Count 6.4 X10*3/uL (4.8-10.8)
== END 2021-05-20 10:27 | disposition home or self-care (01) ==
LOC: HO.HMGCLDS 10:26
PROVIDERS: PCP Nurse Practitioner Family; Visit Provider Nurse Practitioner Family
DX: U07.1 COVID-19 (principal)
CPT/HCPCS: 36415; 85025

== ENCOUNTER → 2021-07-27 08:27 | Outpatient (BNVA) | payer MEDICARE, SELFPAY | PROVIDERS: PCP Nurse Practitioner Family; Referring Provider Nurse Practitioner Family; Visit Provider Internal Medicine Cardiovascular Disease | DX: I25.118 Atherosclerotic heart disease of native coronary artery with other forms of angina pectoris (principal) | CPT/HCPCS: 99212 ==

== ENCOUNTER 2021-09-12 14:00 | Outpatient (REF) | payer MEDICARE, SELFPAY ==
[2021-09-12 16:24] LABS: MANUAL DIFF FLAG NO
[2021-09-12 16:29] LABS: Basophils Percent Auto 0.5 % (0-2); Eosinophils Absolute Auto 0.2 X10*3/uL (0.0-0.4); Eosinophils Percent Auto 3.4 % (0-4); Hematocrit 35.3 % (42.0-52.0); Hemoglobin 12.1 g/dl (14.0-18.0); Imm Gran Abs Auto 0.03 X10*3/uL (0.00-0.03); Imm Gran Pct Auto 0.5 % (0.0-0.4); Lymphocytes Absolute Auto 0.6 X10*3/uL (1.2-4.9); Lymphocytes Percent Auto 10.4 % (20-40); Mean Corpuscular HGB Conc 34.3 g/dl (31.0-36.0); Mean Corpuscular Hemoglobin 32.5 pg (27.0-33.0); Mean Corpuscular Volume 94.9 fL (80.0-98.0); Mean Platelet Volume 11.2 fL (9.4-12.4); Monocytes Absolute Auto 0.6 X10*3/uL (0.1-1.2); Monocytes Percent Auto 10.5 % (2-11); Neutrophils Absolute Auto 4.4 x10*3/uL (2.0-8.3); Neutrophils Percent Auto 74.7 % (45-73); Platelet Count 128 X10*3/uL (160-400); Red Blood Count 3.72 X10*6/uL (4.60-5.80); Red Cell Distribution Width 13.1 % (11.0-16.0); White Blood Count 5.9 X10*3/uL (4.8-10.8)
[2021-09-12 16:43] LABS: Alanine Aminotransferase 25 U/L (0-40); Albumin Level 4.2 g/dL (3.5-5.0); Alkaline Phosphatase 56 U/L (39-117); Anion Gap 14 (12-20); Aspartate Amino Transferase 34 U/L (5-37); Bilirubin Total 0.7 mg/dL (0.0-1.0); Blood Urea Nitrogen 33 mg/dL (9-16); Calcium 10.1 mg/dL (8.4-10.2); Carbon Dioxide 24 mmol/L (22-29); Chloride 109 mmol/L (96-108); Cholesterol 104 mg/dL; Estimated Glomerular Filt Rate 50; Glucose Random 101 mg/dL (60-115); HDL Cholesterol 38 mg/dL; LDL Cholesterol Calculated 36 mg/dl; Potassium 4.3 mmol/L (3.3-5.1); Sodium 143 mmol/L (135-145); Total Protein 6.8 g/dL (6.5-8.0); Triglycerides 150 mg/dL
== END 2021-09-12 14:01 | disposition home or self-care (01) ==
LOC: HO.HMGCLDS 14:00
PROVIDERS: PCP Nurse Practitioner Family; Visit Provider Nurse Practitioner Family
DX: D64.9 Anemia, unspecified (principal); I25.119 Atherosclerotic heart disease of native coronary artery with unspecified angina pectoris
CPT/HCPCS: 36415; 80053; 80061; 85025

== ENCOUNTER → 2021-09-26 08:06 | Outpatient (REF) | payer MEDICARE, SELFPAY ==
--- NOTE | ~2021-09-26 | NM_ITS ---
Exercise Myocardial perfusion study Indication: Chest pain with prior coronary artery bypass grafting to evaluate for myocardial ischemia Technique: The patient was brought in for an exercise perfusion study on 09/26/2021. Patient performed exercise as per Tyrel protocol and was injected 30 mCi of sestamibi was given intravenously one target HR was achieved. Images were obtained using the SPECT gamma camera interlaced with the gating device. Images were obtained in supine position. Resting perfusion study was performed on 09/27/2021. Patient was administered 30 mCi of sestamibi intravenously at rest. Images were then obtained in supine position. Images obtained with and without CT attenuation. Total DLP 80 mGy-cm. Images were processed with the software and compared side to side in short axis, horizontal long axis and vertical long axis views. Findings: The stress perfusion study showed non attenuated images show mildly reduced uptake in the basal and mid inferior wall of the LV myocardium and basal septum inferoseptum the LV myocardium. Remainder of the LV myocardium is normally perfused. Attenuation corrected images show minimal thinning of the wall and moderately reduced uptake in the small area of inferoapical wall of the LV myocardium. Remainder of the normally perfused. The gated study shows normal LV systolic function with calculated LVEF of 67%. LV cavity is normal in size. The gated study shows normal systolic wall thickening and contraction of all segments. There is no transient ischemic dilation. Resting study shows no change in perfusion pattern compared to stress perfusion study. Gating at rest reveals normal systolic wall motion with ejection fraction at 71%. The findings are consistent with fixed defect in the inferoapical wall without reversibility suggestive of nontransmural infarct. No evidence of ischemia NM/NM cardiolite stress test Impression: 1. Small area of nontransmural infarct of the inferoapical wall ischemia 2. Gated LVEF is 67% 3. Transient ischemic dilatation not present Stress EKG is negative for ischemia
--- NOTE | 2021-09-26 08:13 | CA_ITS ---
Acquisition Time: 2021-09-26 08:19:53 Total Exercise Time: 00:08:00 Test Indications: Suspected Angina Medications: ASA AMLODIPINE ATORVASTATIN CLOPIDOGREL EZITIMIBE ISOSORBIDE METOPROLOL Protocol: PAMELLA Max HR: 134 BPM 89% of Pred: 149 BPM Max BP: 180/088 mmHG Max Work Load: 10.1 METS Exercise stress test with exercise 8 min of Pamella protocol, achieving 89% MPHR. without anginal symptoms, with isolated PVC and one ventricular cuplet, with normotensive response to exercise, without EKG changes meeting criteria for ischemia. Nuclear images pending. Test reviewed with Dr Martinez. Referred By: Morris Aguirre Overread By: SAM GARCIA
--- NOTE | 2021-09-26 08:13 | CA_ITS ---
Transthoracic Echocardiogram Patient (Last, First, Middle): Kemal Persaud S Gender: Male Date of : 1950 Age: 71 Procedure Date: 09/26/2021 Procedure Type: Transthoracic Echocardiogram Location: OP Height: 177.8 cm Weight: 85.28 kg BSA: 2.03 m2 Heart Rate: bpm BP: 135 / 72 mmHg Dovetail Machine Operator: EDWIN Referring MD: Morris Aguirre MD Symptoms: I20.8 - Other forms of angina pectoris Study Quality: Fair ECG Rhythm: Sinus Conclusions: - The left ventricular systolic function is normal. The calculated ejection fraction is 62% by biplane method. - Left atrium [id number] enlarged. - There is mild mitral valve regurgitation. - There is mild tricuspid valve regurgitation. Findings Left Ventricle Normal left ventricular cavity size. There is mildly increased left ventricular wall thickness. The left ventricular systolic function is normal. The calculated ejection fraction is 62% by biplane method. There is no evidence of regional wall motion abnormalities. Diastolic function is normal for age. Right Ventricle Normal right ventricular cavity size and systolic function. Atria Left atrium [id number]-jhyfjaracn enlarged. The right atrium is normal in size. Aortic Valve There is a normal trileaflet aortic valve. There is no aortic valve stenosis. There is no aortic valve regurgitation. Mitral Valve There is mild mitral annular calcification. There is mild mitral valve regurgitation. There is no mitral valve stenosis. Pulmonic Valve The pulmonic valve is likely normal. There is trace to mild pulmonic valve regurgitation. Tricuspid Valve Normal tricuspid valve structure. There is mild tricuspid valve regurgitation. The pulmonary artery systolic pressure is normal. Great Vessels The asc aorta and aortic arch are normal in size. Venous The inferior vena cava is normal in size and collapses greater than 50% with inspiration. Pericardium/Pleural There is no evidence of pericardial effusion. Prior Study Comparison Changes noted compared to prior study dated: 09/11/2016. Increase in left atrial size. However, there is no clear evidence of diastolic dysfunction or significant mitral regurgitation. Measurements 2D Linear Measurements IVSd: 1.16 0.6-0.9/0.6-1.0 cm LVIDd: 4.72 3.9-5.3/4.2-5.9 cm LVIDd Index: 2.33 2.4-3.2/2.2-3.1 cm/m2 LVIDs: 3.13 2.0-3.6 cm LVPWd: 1.20 0.7-1.1 cm LA Diam: 4.20 2.7-3.8/3.0-4.0 cm LAIDs Index: 2.07 1.5-2.3 cm/m2 LV Mass: 259.73 67-162/88-224 g LV Mass Index: 127.95 43-95/49-115 g/m2 LVOT Diam: 2.00 3.0+(-)1.3 cm 2D Systolic Function EF 4C: 62.60 >55% EF 2C: 61.00 >55% EF BiP: 61.90 >55% Mitral Valve MV Pk E: 0.87 MV PK A: 0.61 MV Decel Time: 199.00 E/A: 1.40 E'Lateral: 9.57 E'Medial: 8.38 E/E' Med: 10.40 E/E' Lat: 9.10 PHT: 58.00 MVA PHT: 3.79 Decel [place]: 4.36 Aortic Valve AoV Pk Vito: 1.51 AoV Mn Vito: 1.01 AoV VTI: 0.38 AoV Pk Grad: 9.00 Aov Mn Grad: 5.00 IFEOMA Cont.VTI: 2.45 LVOT LVOT Pk Vito: 1.29 LVOT Mn Vito: 0.76 LVOT VTI: 0.29 LVOT Pk Grad: 7.00 LVOT Mn Grad: 3.00 LVOT Diam: 2.00 LVOT Area: 3.14 Diastolic Function MV Pk E: 0.87 MV Pk A: 0.61 E/A: 1.40 E'Medial: 8.38 E/E' Med: 10.40 E' Laterial: 9.57 E/E' Lat: 9.10 Right Ventricle TAPSE (mm): 21.70 TVS' Vito: 9.36 Tricuspid Valve TR Pk Vito: 2.65 TR Pk Grad: 28.00 RA Press: 3.00 RVSP: 31.00 Great Vessels Aorta Sinus of Valsalva: 2.91 2.0-3.[address] [place]: 2.52 1.7-3.4 cm Ao Asc: 3.00 2.1-3.4 cm Ao Arch: 3.20 Updated in Other Vendor System with Status of Final Nader Martinez MD electronically signed on 09/27/2021 11:25:31 AM with status of Final
== END ==
LOC: HO.CARD 08:06
PROVIDERS: PCP Nurse Practitioner Family; Visit Provider Internal Medicine Cardiovascular Disease
DX: I20.8 Other forms of angina pectoris (principal); R07.9 Chest pain, unspecified
CPT/HCPCS: 78452; 93017; 93306; A9500

== ENCOUNTER 2022-01-30 08:16 | Outpatient (REF) | payer MEDICARE, SELFPAY ==
[2022-01-30 08:36] LABS: MANUAL DIFF FLAG NO
[2022-01-30 08:49] LABS: Basophils Percent Auto 0.9 % (0-2); Eosinophils Absolute Auto 0.1 X10*3/uL (0.0-0.4); Hematocrit 38.4 % (42.0-52.0); Hemoglobin 13.4 g/dl (14.0-18.0); Imm Gran Abs Auto 0.02 X10*3/uL (0.00-0.03); Imm Gran Pct Auto 0.4 % (0.0-0.4); Lymphocytes Percent Auto 20.4 % (20-40); Mean Corpuscular HGB Conc 34.9 g/dl (31.0-36.0); Mean Corpuscular Hemoglobin 32.4 pg (27.0-33.0); Mean Corpuscular Volume 92.8 fL (80.0-98.0); Mean Platelet Volume 10.3 fL (9.4-12.4); Monocytes Absolute Auto 0.6 X10*3/uL (0.1-1.2); Monocytes Percent Auto 13.8 % (2-11); Neutrophils Absolute Auto 2.9 x10*3/uL (2.0-8.3); Neutrophils Percent Auto 61.5 % (45-73); Platelet Count 112 X10*3/uL (160-400); Red Blood Count 4.14 X10*6/uL (4.60-5.80); White Blood Count 4.7 X10*3/uL (4.8-10.8)
[2022-01-30 09:07] LABS: Appearance Urine Clear; Color Urine Yellow; Glucose Urine UA Negative (Negative); Leukocyte Esterase Urine Negative (Negative); Nitrite Urine Negative (Negative); PH 5.5 (5.0-8.0); Urine Blood Negative (Negative); Urine Ketones Negative (Negative); Urine Protein Negative (Neg-Trace)
[2022-01-30 09:24] LABS: Alanine Aminotransferase 21 U/L (0-40); Albumin Level 4.1 g/dL (3.5-5.0); Alkaline Phosphatase 64 U/L (39-117); Anion Gap 14 (12-20); Aspartate Amino Transferase 27 U/L (5-37); Bilirubin Total 1.1 mg/dL (0.0-1.0); Blood Urea Nitrogen 24 mg/dL (9-16); Calcium 9.4 mg/dL (8.4-10.2); Carbon Dioxide 26 mmol/L (22-29); Chloride 108 mmol/L (96-108); Cholesterol 114 mg/dL; Estimated Glomerular Filt Rate 60; Glucose Fasting 99 mg/dL (60-99); HDL Cholesterol 50 mg/dL; LDL Cholesterol Calculated 53 mg/dl; Potassium 4.7 mmol/L (3.3-5.1); Sodium 143 mmol/L (135-145); Total Protein 6.5 g/dL (6.5-8.0); Triglycerides 57 mg/dL
== END 2022-01-30 08:17 | disposition home or self-care (01) ==
LOC: HO.LAB 08:16
PROVIDERS: PCP Nurse Practitioner Family; Visit Provider Nurse Practitioner Family
DX: I10 Essential (primary) hypertension (principal)
CPT/HCPCS: 36415; 80053; 80061; 81003; 84443; 85025

== ENCOUNTER 2022-02-10 08:55 | Outpatient (REF) | payer MEDICARE, SELFPAY ==
[2022-02-10 10:58] LABS: Troponin-I High Sensitivity 5.1 ng/L (<3.5-35.0)
== END 2022-02-10 08:56 | disposition home or self-care (01) ==
LOC: HO.LAB 08:55
PROVIDERS: PCP Nurse Practitioner Family; Visit Provider Internal Medicine Cardiovascular Disease
DX: I25.119 Atherosclerotic heart disease of native coronary artery with unspecified angina pectoris (principal)
CPT/HCPCS: 36415; 84484; 93005; 99212

== ENCOUNTER → 2022-03-01 13:03 | Outpatient (BNVA) | payer MEDICARE, SELFPAY | PROVIDERS: PCP Nurse Practitioner Family; Referring Provider Nurse Practitioner Family; Visit Provider Internal Medicine Cardiovascular Disease | DX: I25.10 Atherosclerotic heart disease of native coronary artery without angina pectoris (principal); I10 Essential (primary) hypertension; Z79.899 Other long term (current) drug therapy | CPT/HCPCS: 99212 ==

== ENCOUNTER 2022-03-17 13:58 | Outpatient (REF) | payer MEDICARE, SELFPAY ==
--- NOTE | ~2022-03-17 | US_ITS ---
EXAMINATION: US PELVIS CLINICAL INFORMATION: Intra-abdominal and pelvic swelling., Mass and lump. COMPARISON: None TECHNIQUE: Ultrasound of the pelvis is performed using transabdominal imaging. FINDINGS: Imaging through the right lower quadrant reveals no mass, hernia or fluid collection. No increased vascularity. US/US pelvic complete IMPRESSION: Unremarkable limited ultrasound right lower quadrant.
== END 2022-03-17 13:59 | disposition home or self-care (01) ==
LOC: HO.HMGCX 13:58
PROVIDERS: PCP Nurse Practitioner Family; Visit Provider Nurse Practitioner Family
DX: R19.09 Other intra-abdominal and pelvic swelling, mass and lump (principal)
CPT/HCPCS: 76856

== ENCOUNTER 2022-06-16 10:24 | Outpatient (REF) | payer MEDICARE, SELFPAY ==
[2022-06-16 11:27] LABS: MANUAL DIFF FLAG NO
[2022-06-16 11:52] LABS: Basophils Percent Auto 0.5 % (0-2); Eosinophils Absolute Auto 0.1 X10*3/uL (0.0-0.4); Eosinophils Percent Auto 1.5 % (0-4); Hematocrit 39.2 % (42.0-52.0); Hemoglobin 13.4 g/dl (14.0-18.0); Imm Gran Abs Auto 0.02 X10*3/uL (0.00-0.03); Imm Gran Pct Auto 0.2 % (0.0-0.4); Lymphocytes Absolute Auto 0.8 X10*3/uL (1.2-4.9); Lymphocytes Percent Auto 9.3 % (20-40); Mean Corpuscular HGB Conc 34.2 g/dl (31.0-36.0); Mean Corpuscular Hemoglobin 32.5 pg (27.0-33.0); Mean Corpuscular Volume 95.1 fL (80.0-98.0); Mean Platelet Volume 10.9 fL (9.4-12.4); Monocytes Absolute Auto 0.8 X10*3/uL (0.1-1.2); Monocytes Percent Auto 8.9 % (2-11); Neutrophils Absolute Auto 6.9 x10*3/uL (2.0-8.3); Neutrophils Percent Auto 79.6 % (45-73); Platelet Count 144 X10*3/uL (160-400); Red Blood Count 4.12 X10*6/uL (4.60-5.80); Red Cell Distribution Width 13.2 % (11.0-16.0); White Blood Count 8.7 X10*3/uL (4.8-10.8)
[2022-06-16 12:38] LABS: Alanine Aminotransferase 17 U/L (0-40); Albumin Level 4.3 g/dL (3.5-5.0); Alkaline Phosphatase 57 U/L (39-117); Anion Gap 15 (12-20); Aspartate Amino Transferase 26 U/L (5-37); Bilirubin Total 0.9 mg/dL (0.0-1.0); Blood Urea Nitrogen 28 mg/dL (9-16); Calcium 9.1 mg/dL (8.4-10.2); Carbon Dioxide 25 mmol/L (22-29); Chloride 107 mmol/L (96-108); Cholesterol 113 mg/dL; Estimated Glomerular Filt Rate > 60; Glucose Fasting 96 mg/dL (60-99); HDL Cholesterol 47 mg/dL; LDL Cholesterol Calculated 53 mg/dl; Potassium 4.4 mmol/L (3.3-5.1); Sodium 143 mmol/L (135-145); Total Protein 6.8 g/dL (6.5-8.0); Triglycerides 66 mg/dL
[2022-06-16 12:57] LABS: TSH reflex Free T4 0.76 uIU/mL (0.32-4.0)
[2022-06-16 14:20] LABS: Appearance Urine Clear; Color Urine Dark Yellow; Glucose Urine UA Negative (Negative); Leukocyte Esterase Urine Negative (Negative); Nitrite Urine Negative (Negative); Specific Gravity - Urine 1.025 (1.005-1.025); Urine Blood Negative (Negative); Urine Ketones Negative (Negative); Urine Protein Negative (Neg-Trace)
[2022-06-16 15:04] LABS: Troponin-I High Sensitivity 4.2 ng/L (<3.5-35.0)
== END 2022-06-16 10:25 | disposition home or self-care (01) ==
LOC: HO.HMGCLDS 10:24
PROVIDERS: Absent Provider Internal Medicine Cardiovascular Disease; PCP Nurse Practitioner Family; Visit Provider Nurse Practitioner Family
DX: I25.118 Atherosclerotic heart disease of native coronary artery with other forms of angina pectoris (principal); I10 Essential (primary) hypertension
CPT/HCPCS: 36415; 80053; 80061; 81003; 84443; 84484; 85025

== ENCOUNTER → 2022-08-29 13:18 | Outpatient (BNVA) | payer MEDICARE, SELFPAY | PROVIDERS: PCP Nurse Practitioner Family; Referring Provider Nurse Practitioner Family; Visit Provider Internal Medicine Cardiovascular Disease | DX: I25.10 Atherosclerotic heart disease of native coronary artery without angina pectoris (principal); I10 Essential (primary) hypertension | CPT/HCPCS: 99212 ==

== ENCOUNTER 2022-09-15 09:14 | Outpatient (REF) | payer MEDICARE, SELFPAY ==
[2022-09-15 10:51] LABS: Cholesterol 97 mg/dL; HDL Cholesterol 34 mg/dL; LDL Cholesterol Calculated 54 mg/dl; Triglycerides 46 mg/dL
[2022-09-18 15:48] LABS: CRP High Sensitivity 0.8 mg/L
== END 2022-09-15 09:15 | disposition home or self-care (01) ==
LOC: HO.LAB 09:14
PROVIDERS: PCP Nurse Practitioner Family; Visit Provider Internal Medicine Cardiovascular Disease
DX: I25.10 Atherosclerotic heart disease of native coronary artery without angina pectoris (principal); E78.5 Hyperlipidemia, unspecified
CPT/HCPCS: 36415; 80061; 86141

== ENCOUNTER 2022-11-23 09:42 | Outpatient (REF) | payer MEDICARE, SELFPAY ==
[2022-11-23 11:11] LABS: MANUAL DIFF FLAG NO
[2022-11-23 11:25] LABS: Appearance Urine Clear; Color Urine Yellow; Glucose Urine UA Negative (Negative); Leukocyte Esterase Urine Negative (Negative); Nitrite Urine Negative (Negative); PH 5.5 (5.0-9.0); Specific Gravity - Urine 1.025 (1.005-1.025); Urine Blood Negative (Negative); Urine Ketones Negative (Negative); Urine Protein Negative (Neg-Trace)
[2022-11-23 11:31] LABS: Basophils Percent Auto 0.6 % (0-2); Eosinophils Absolute Auto 0.1 X10*3/uL (0.0-0.4); Eosinophils Percent Auto 2.4 % (0-4); Hematocrit 38.3 % (42.0-52.0); Hemoglobin 12.8 g/dl (14.0-18.0); Imm Gran Abs Auto 0.01 X10*3/uL (0.00-0.03); Imm Gran Pct Auto 0.2 % (0.0-0.4); Lymphocytes Absolute Auto 1.1 X10*3/uL (1.2-4.9); Lymphocytes Percent Auto 23.3 % (20-40); Mean Corpuscular HGB Conc 33.4 g/dl (31.0-36.0); Mean Corpuscular Hemoglobin 31.5 pg (27.0-33.0); Mean Corpuscular Volume 94.3 fL (80.0-98.0); Mean Platelet Volume 10.9 fL (9.4-12.4); Monocytes Absolute Auto 0.7 X10*3/uL (0.1-1.2); Neutrophils Absolute Auto 2.7 x10*3/uL (2.0-8.3); Neutrophils Percent Auto 58.5 % (45-73); Platelet Count 124 X10*3/uL (160-400); Red Blood Count 4.06 X10*6/uL (4.60-5.80); Red Cell Distribution Width 13.1 % (11.0-16.0); White Blood Count 4.7 X10*3/uL (4.8-10.8)
[2022-11-23 12:12] LABS: Alanine Aminotransferase 15 U/L (0-40); Albumin Level 4.1 g/dL (3.5-5.0); Alkaline Phosphatase 50 U/L (39-117); Anion Gap 13 (12-20); Aspartate Amino Transferase 28 U/L (5-37); Bilirubin Total 1.4 mg/dL (0.0-1.0); Blood Urea Nitrogen 27 mg/dL (9-16); Calcium 9.5 mg/dL (8.4-10.2); Carbon Dioxide 24 mmol/L (22-29); Chloride 108 mmol/L (96-108); Cholesterol 108 mg/dL; Estimated Glomerular Filt Rate > 60; Glucose Fasting 88 mg/dL (60-99); HDL Cholesterol 43 mg/dL; LDL Cholesterol Calculated 52 mg/dl; Potassium 3.8 mmol/L (3.3-5.1); Sodium 141 mmol/L (135-145); Total Protein 6.9 g/dL (6.5-8.0); Triglycerides 69 mg/dL
[2022-11-23 12:16] LABS: TSH reflex Free T4 0.52 uIU/mL (0.32-4.0)
== END 2022-11-23 09:43 | disposition home or self-care (01) ==
LOC: HO.HMGCLDS 09:42
PROVIDERS: PCP Nurse Practitioner Family; Visit Provider Nurse Practitioner Family
DX: E78.5 Hyperlipidemia, unspecified (principal); I10 Essential (primary) hypertension
CPT/HCPCS: 36415; 80053; 80061; 81003; 84443; 85025

== ENCOUNTER → 2022-12-25 10:45 | Outpatient (BNV) | payer MEDICARE, SELFPAY | PROVIDERS: PCP Nurse Practitioner Family; Visit Provider Internal Medicine | DX: D61.818 Other pancytopenia (principal); Z85.46 Personal history of malignant neoplasm of prostate; Z92.3 Personal history of irradiation | CPT/HCPCS: 99204; 99212; 99213 ==

== ENCOUNTER 2023-01-25 10:49 | Outpatient (AMB) | payer MEDICARE, SELFPAY ==
--- NOTE | 2023-01-25 12:28 | MHC.OFFWIV ---
Intake Vital Signs 01/25/23 12:30 Height 5 ft 10 in Weight 179 lb 6 oz BMI 25.7 BP 120/70 Blood Pressure Location Rt brachial Position Sitting Pulse 57 Pulse Source Pulse Oximeter Temp 97.2 F Temp Source Temporal Artery Scan Pulse Oximetry (%) 98 Oxygen Delivery Method Room Air Intake Visit Reasons: EP RT Knee pain Intake Note: Pt is here c/o right knee pain for the past 7 days. Pt states no falls or injuries. Patient Tobacco Use Status: Former Tobacco user Allergies amoxicillin Adverse Reaction (Verified 01/25/23 12:30) Unknown Medication List - Last Reconciled 01/25/23 by Martine Sotelo PA-C amlodipine 5 mg PO DAILY aspirin (Adult Aspirin Regimen) 81 mg PO DAILY atorvastatin 80 mg PO DAILY cholecalciferol (vitamin D3) 50 mcg PO DAILY clopidogrel 75 mg PO DAILY ezetimibe 10 mg PO DAILY isosorbide mononitrate ER 30 mg PO DAILY metoprolol succinate ER 25 mg PO DAILY multivitamin 1 tab PO DAILY naproxen 500 mg PO BID nitroglycerin (Nitrostat) 0.4 mg sublingual Q5M PRN vitamin B complex (B Complex-Vitamin B12 tablet) 1 tab PO DAILY Do you need a note to return to daycare/school/sports/work: No HPI HPI Comments History of Present Illness Details This is a 72-year-old male with a past medical history of hypertension, hyperlipidemia and coronary disease s/p cardiac stenting presenting for evaluation of right posterior knee pain that started this morning. Patient states that he walks 4 miles at least three times per week. This morning the patient was coming up the stairs from his basement, taking 2 steps at a time when he experienced the sudden onset of posterior right knee pain that he describes as 6/10 sharp and aching sensation that does not radiate. Patient states after this event he has had pain in his right posterior knee with ambulation and no pain at rest. Patient denies having any anterior right knee pain, right calf pain or right foot pain. Patient denies twisting his right knee or falling onto his knee as a result of this activity this morning. The patient has not taken any medication for treatment of his discomfort. [facility] Medical History Anemia CAD (coronary artery disease) Chronic renal disease Dyslipidemia HTN (hypertension) NSTEMI (non-ST elevated myocardial infarction) Osteoarthritis PAF (paroxysmal atrial fibrillation) Prostate CA Surgical History (Updated 12/25/22 @ 11:17 by Tia Rosas MD) Hx of CABG (~08/2018) Hx of prostatectomy S/P cardiac cath (~05/2020) Stented coronary artery Family History Father CVD (cardiovascular disease) Mother No problems noted. Brother CVD (cardiovascular disease) Social History Housing: House Patient Tobacco Use Status: Former Tobacco user Years Smoked: 40 years ago e-Cigarette/Vaping Use: Never Used Second Hand Smoke Exposure: No service: No Current occupational status: retired Cognitive needs: No Hearing needs: No Vision needs: No Review of Systems Const All systems reviewed & are unremarkable except as noted in HPI and below Reports as per HPI Musc Reports abnormal gait (Pain posterior right knee with ambulation), Reports arthralgias (Right posterior knee), Denies joint swelling and Denies muscle cramps Neuro Reports abnormal gait (Pain posterior right knee with ambulation) Psych Reports no additional complaints Physical Exam Vital Signs: Last Vital Signs Temp 97.2 F 01/25/23 12:30 Pulse 57 01/25/23 12:30 BP 120/70 01/25/23 12:30 Pulse Ox 98 01/25/23 12:30 Oxygen Delivery Method Room Air 01/25/23 12:30 BMI result Body Mass Index 25.7 Const General: cooperative, healthy appearing, no acute distress and well developed; No acute distress or ill appearing Nutritional Appearance: average body habitus Orientation/consciousness: patient oriented x3 Limitations: no limitations Skin General skin exam: no rashes or lesions noted and no ecchymosis Trauma: no lacerations or abrasions Wounds: no wounds Neuro General: patient oriented x3 Extrem General: Yes normal to inspection, Yes full ROM (right knee) and Yes no calf tenderness (no right calf tenderness) Right lower extremity: normal to inspection, no joint enlargement and knee Details: normal to inspection and tenderness (posterior fossa right knee) Location: of the popliteal fossa; not of the patella, not of the medial joint line, not of the lateral joint line, not of the lateral joint line, not of the pre-patellar area, not of the infrapatellar area, not of the distal upper leg and not of the proximal tibia; no edema Psych Appearance: grossly normal Mental Status: mental status grossly normal Speech and movement: Normal speech and movement present Affect: normal affect Thought process: Normal thought process present Judgement: Good judgement present (Psych) Assessment & Plan Assessment & Plan (1) Posterior right knee pain: Code(s): M25.561 - Pain in right knee Plan Patient seen evaluated. Patient has isolated pain of the right posterior fossa without radiation of pain including no calf pain, no posterior right thigh pain, no limitation of range of motion of the right knee. Right knee is not erythematous or warm to touch. I have discussed the possibility of a ligamentous injury, tendinopathy or ruptured Quick's cyst with this patient. Given his history, coupled with his examination, I do not feel acute imaging is warranted at this time. Patient will be discharged home with Naprosyn to take twice daily for the next 7-10 days and he will follow up with his primary care provider as an outpatient. Medications: New naproxen 500 mg PO BID 20 tabs 0RF Coding Level of Care Code Est Pt Level 3 (76136) History Problem Focused Exam Problem Focused Medical Decision Making Moderate Complexity Diagnoses Posterior right knee pain M25.561 Time Spent (min) 20
[2023-01-25 12:30] VITALS: BP 120/70; PULSE 57; TEMP 36.2; O2SAT 98; BMI 25.7
== END 2023-01-25 13:00 | disposition home or self-care (01) ==
PROVIDERS: PCP Nurse Practitioner Family; Visit Provider Physician Assistant
DX: M25.561 Pain in right knee (principal)
CPT/HCPCS: 99213

== ENCOUNTER 2023-01-28 16:05 | Emergency (ER) | payer MEDICARE, SELFPAY ==
--- NOTE | ~2023-01-28 | US_ITS ---
EXAMINATION: US soft tissue popliteal fossa CLINICAL INFORMATION: Question ruptured Quick's cyst COMPARISON: None available at the time of this dictation. TECHNIQUE: High-frequency linear transducer ultrasound utilized, area of interest scanned, right popliteal fossa FINDINGS: There are 2 loculated the fluid collection measuring 2.7 x 0.8 x 2.2 cm and 1.6 x 1.1 x 0.8 cm compatible with popliteal/Quick's cyst. US/US extremity nonvascular IMPRESSION: There are 2 loculated fluid collections in the popliteal fossa compatible with popliteal/Quick's cyst. Ultrasound cannot assess for possible rupture. MRI could be utilized to assess soft tissue derangements including possible rupture if clinically indicated.
--- NOTE | ~2023-01-28 | XR_ITS ---
EXAMINATION: XR KNEE, RIGHT CLINICAL INFORMATION: Pain following injury in the right knee COMPARISON: None available. TECHNIQUE: Four views of the right knee. FINDINGS: No fracture or joint effusion. Alignment is anatomic. Joint spaces are maintained. No abnormal soft tissue calcification. There is enthesopathy of the patella. Postsurgical margaret seen in the soft tissues of the knee medially XR/XR knee RT 4V IMPRESSION: No fracture seen. Enthesopathy of the patella.
[2023-01-28 17:04] VITALS: BP 136/84; PULSE 77; RESP 18; TEMP 37.1; O2SAT 95; BMI 58.5
--- NOTE | 2023-01-28 17:05 | ED_ITS ---
HPI - Extremity Injury (Lower) General Chief Complaint: Extremity Injury, Lower Stated Complaint: right knee injury Time Seen by Provider: 01/28/23 18:00 Source: patient Mode of arrival: ambulatory Limitations: no limitations History of Present Illness HPI Narrative: Patient is a 72-year-old male presenting to the emergency department with worsening right knee pain. Patient reports that he developed right knee pain approximately 1 month prior, states that he decreased his amount of walking to see if this would be helpful in decreasing his pain. Two days ago he was walking up the basement stairs when he felt a sudden increase in pain. He was evaluated at urgent care at that time and was told he likely had a ruptured Quick's cyst but did not have any imaging at that time. Today he was in the grocery store, states that his legs were planted but he turned to look at an item and felt a sudden onset of pain to the lateral aspect of his right knee. Reports that he was unable to bear weight on his right leg and was able to leave the store as he had the grocery cart with him. He reports pain is minimal at rest on the stretcher but that he is unable to bear weight. He does report prior history of a bypass graft of right leg approximately 10 years ago. complaint: knee injury Onset (ago): month(s) Injury: Right: knee Type of Injury: unknown Place: other Severity: severe Relieving factors: rest Exacerbating factors: weight bearing Associated symptoms: unable to bear weight Other symptoms: none Related Data Home Medications Medication Instructions Recorded Confirmed aspirin 81 mg tablet,delayed 81 mg PO DAILY 03/30/20 12/25/22 release (Adult Aspirin Regimen) multivitamin 1 tab PO DAILY 03/30/20 12/25/22 cholecalciferol (vitamin D3) 25 50 mcg PO DAILY 06/06/22 12/25/22 mcg (1,000 unit) capsule vitamin B complex (B 1 tab PO DAILY 06/06/22 12/25/22 Complex-Vitamin B12 tablet) Previous Rx's Medication Instructions Recorded nitroglycerin 0.4 mg sublingual 0.4 mg sublingual Q5M PRN chest 09/22/20 tablet (Nitrostat) pain #25 tabs amlodipine 5 mg tablet 5 mg PO DAILY #90 tabs 04/10/22 ezetimibe 10 mg tablet 10 mg PO DAILY #90 tabs 04/19/22 isosorbide mononitrate 30 mg 30 mg PO DAILY #90 tabs 06/26/22 tablet,extended release 24 hr clopidogrel 75 mg tablet 75 mg PO DAILY #90 tabs 09/22/22 metoprolol succinate 25 mg 25 mg PO DAILY #90 tabs 12/14/22 tablet,extended release 24 hr atorvastatin 80 mg tablet 80 mg PO DAILY #90 tabs 01/12/23 naproxen 500 mg tablet 500 mg PO BID #20 tabs 01/25/23 Allergies Allergy/AdvReac Type Severity Reaction Status Date / Time amoxicillin AdvReac Unknown Verified 01/25/23 12:30 Review of Systems Review of Systems: As per HPI. Yes all other systems are reviewed and are negative Constitutional: Constitutional: Reports as per HPI [facility] Past Medical History Medical History Anemia CAD (coronary artery disease) Chronic renal disease Dyslipidemia HTN (hypertension) NSTEMI (non-ST elevated myocardial infarction) Osteoarthritis PAF (paroxysmal atrial fibrillation) Prostate CA Surgical History (Updated 12/25/22 @ 11:17 by Tia Rosas MD) Hx of CABG (~08/2018) Hx of prostatectomy S/P cardiac cath (~05/2020) Stented coronary artery Family History Family History Father CVD (cardiovascular disease) Mother No problems noted. Brother CVD (cardiovascular disease) Social History Social History Housing: House Patient Tobacco Use Status: Former Tobacco user Years Smoked: 40 years ago e-Cigarette/Vaping Use: Never Used Second Hand Smoke Exposure: No Advance Directives: No Advance Directives Information Provided: No service: No Current occupational status: retired Cognitive needs: No Hearing needs: No Vision needs: No Physical Exam Vital Signs: Vital Signs: Last Vital Signs Temp 98.7 F 01/28/23 17:04 Pulse 77 01/28/23 17:04 Resp 18 01/28/23 17:04 BP 136/84 01/28/23 17:04 Pulse Ox 95 01/28/23 17:04 O2 Del Method Room Air 01/28/23 17:04 BMI result Body Mass Index 58.5 Vital signs have been reviewed and appear to be correct. Blood pressure normal. Heart rate normal. Respiratory rate normal. Temperature normal. Oxygen saturation normal. Const: General: cooperative, healthy appearing and no acute distress Orientation/consciousness: oriented to person, oriented to place, oriented to time and patient oriented x3 Limitations: no limitations HEENT: Head: Yes normocephalic and Yes atraumatic Ears: external ears normal General nose exam: Normal external nose present Face and sinus: Yes face symmetric Mouth: oropharynx normal and moist mucous membranes Throat: Yes uvula midline Eyes: Pupils: Equal, round and reactive pupils present Neck: Neck: Yes normal visual inspection and Yes supple Resp: Effort & Inspection: normal respiratory effort and able to speak in complete sentences Auscultation: clear to auscultation bilaterally Cardio: Rate: regular rate Rhythm: regular rhythm Heart sounds: S1 normal heart sound present and S2 normal heart sound present GI: Palpation (GI): Soft to palpation and nontender Auscultation: normoactive bowel sounds : General: Yes no CVA tenderness Back/Spine/Pelvis: Back: no CVA tenderness Skin: General skin exam: elasticity normal and turgor normal Neuro: General: oriented to person, oriented to place, oriented to time, patient oriented x3, moves all extremities, no focal motor deficits and CN's II- XI intact bilaterally Cranial nerves: Yes Equal, round and reactive pupils present Cognition (Neuro): normal cognition Extrem: General: Yes full ROM, Yes normal exam except as noted, Yes no pedal edema and Yes no calf tenderness Right lower extremity: knee Details: swelling (diffuse mild), normal ROM and knee ligament exam normal; no tenderness, no ecchymosis, no crepitus, no deformity and no unusual warmth Psych: Mental Status: mental status grossly normal Affect: normal affect Thought process: Normal thought process present Course Course Course Narrative: This is an RME: Additional HPI, ROS, PE not included below will be deferred to primary provider. Patient is a 72-year-old male presents for evaluation of Right knee pain for the past month. Cut back on the amount of walking he was doing to relax the knee. 2 days ago while going up the stairs he developed onset of severe pain, was seen at urgent care, advised likely a ruptured bakers cyst, improved with naproxen as prescribed. Today while at [employer] felt a sudden pop to the knee, diffuse pain, unable to bear weight. Plan: XR knee Reevaluation(s) Reevaluation #1: Ultrasound revealing to fluid collections in the popliteal fossa all compatible with Quick's cyst, reviewed possibility of rupture. Upon physical examination at this time there is no evidence of popliteal artery occlusion, nerve entrapment, or compartment syndrome. At this time feel that he is stable for discharge home, Advised to continue course as advised by prior provider; knee immobilizer, crutches, concern conservative treatment, outpatient follow-up with orthopedics. Time: 20:01 Medical Decision Making Medical Decision Making MDM Narrative: Patient is a 72-year-old male presenting to the emergency department with worsening right knee pain. On exam patient is awake, A+Ox3, VS WNL, afebrile, normal neurological exam without focal deficits, diffuse mild swelling to right knee, no tenderness to any aspect of right knee, no erythema or ecchymosis, states only pain with weight bearing, normal ligament exam, no calf swelling or tenderness, 2+ PT and DP pulses. Given reported symptoms and physical exam findings, initial differential includes right knee strain, sprain, ligamentous injury, ruptured Quick's cyst. Less likely fracture or dislocation but x-ray ordered in triage. X-ray notable for no fracture or joint effusion. My interpretation is in agreement with the radiologist's interpretation. Patient signed out to KACIE Glynn pending results of ultrasound. Differential Diagnosis Differential Diagnoses: The differential diagnosis associated with the presentation includes As per MDM. Independent Interpretation I performed an independent interpretation of an: Plain X-Ray Interpretation: No fracture or effusion on x-ray Radiology Impression Discussion of test interpretation with radiology: I have reviewed the radiologist's reading. Radiologist Impression: XR/XR knee RT 4V IMPRESSION: No fracture seen. Enthesopathy of the patella. US/US extremity nonvascular IMPRESSION: ? There are 2 loculated fluid collections in the popliteal fossa compatible with popliteal/Quick's cyst. Ultrasound cannot assess for possible rupture. MRI could be utilized to assess soft tissue derangements including possible rupture if clinically indicated. External Record Review External record reviewed: Inpatient record, Office record and Outpatient record Discharge Plan Discharge Clinical Impression: Strain of right knee, Quick's cyst Patient Disposition: Still a Patient Instructions: Knee Sprain (DC), Crutch Instructions (ED), Bakers Cyst (ED), R.I.C.E. Treatment (ED) Additional Instructions: You have been evaluated in the emergency department today for right knee pain. Your evaluation did not find evidence of medical conditions requiring emergent intervention at this time. We have provided you with a knee immobilizer and crutches for you to use while your knee heals. Please rest, ice, and elevate y our knee, and resume normal activities as tolerated. We recommend you take 600mg ibuprofen every 6 hours or 650mg Tylenol every 6 hours as needed for pain. If needed you can alternate these medications as they take 1 medication every 3 hours. For instance at noon take ibuprofen, then at 3:00 p.m. take Tylenol, then at 6:00 p.m. take ibuprofen. Please schedule an appointment for follow-up with your primary care provider this week. Return to the emergency department if you experience worsening pain, numbness, tingling, change of color in your leg, or any other concerning symptoms. You are being prescribed to orthopedics for further evaluation of your symptoms, please CALL THEIR OFFICE to schedule an appointment. Prescriptions: No Action nitroglycerin [Nitrostat] 0.4 mg tablet, sublingual 0.4 mg sublingual Q5M PRN (Reason: chest pain) Qty: 25 2RF Rx Instructions: do not exceed 3 doses per episode amlodipine 5 mg tablet 5 mg PO DAILY Qty: 90 3RF ezetimibe 10 mg tablet 10 mg PO DAILY Qty: 90 3RF isosorbide mononitrate 30 mg tablet extended release 24 hr 30 mg PO DAILY Qty: 90 2RF clopidogrel 75 mg tablet 75 mg PO DAILY Qty: 90 1RF metoprolol succinate 25 mg tablet extended release 24 hr 25 mg PO DAILY Qty: 90 3RF atorvastatin 80 mg tablet 80 mg PO DAILY Qty: 90 3RF aspirin [Adult Aspirin Regimen] 81 mg tablet,delayed release (DR/EC) 81 mg PO DAILY multivitamin Tablet 1 tab PO DAILY naproxen 500 mg tablet 500 mg PO BID Qty: 20 0RF vitamin B complex [B Complex-Vitamin B12] Tablet 1 tab PO DAILY cholecalciferol (vitamin D3) 25 mcg (1,000 unit) capsule 50 mcg PO DAILY Referrals: [facility] [Provider Group]
--- NOTE | 2023-01-28 20:49 | PC.NURSE ---
Knee immobilizer placed on patient's right knee. Patient states he has crutches in his car. Proper use of crutches reviewed. Patient left with via wheelchair.
== END 2023-01-28 20:48 | disposition still patient (30) ==
PROVIDERS: Emergency Provider Emergency Medicine; PCP Nurse Practitioner Family
DX: S86.911A Strain of unspecified muscle(s) and tendon(s) at lower leg level, right leg, initial encounter (principal); X58.XXXA Exposure to other specified factors, initial encounter; Y93.9 Activity, unspecified; Y92.9 Unspecified place or not applicable; Y99.9 Unspecified external cause status; M25.561 Pain in right knee; I10 Essential (primary) hypertension; E78.5 Hyperlipidemia, unspecified; I48.0 Paroxysmal atrial fibrillation
CPT/HCPCS: 73564; 76882; 99281; 99284

== ENCOUNTER 2023-02-07 08:20 | Outpatient (AMB) | payer MEDICARE, SELFPAY ==
--- NOTE | 2023-02-07 07:10 | A.OFFPC_ITS ---
Intake Visit Reasons: Follow up knee pain Allergies amoxicillin Adverse Reaction (Verified 01/25/23 12:30) Unknown Tobacco use date assessed: 11/06/22 HPI Follow up knee pain HPI Details Right knee pain: Pt is following up with [facility]. He has an MRI scheduled for 02/12. Pt is taking tylenol qid for pain. He reports that he is able to remain active. Denies fever, chills, and dizziness. [facility] Medical History Anemia CAD (coronary artery disease) Chronic renal disease Dyslipidemia HTN (hypertension) NSTEMI (non-ST elevated myocardial infarction) Osteoarthritis PAF (paroxysmal atrial fibrillation) Prostate CA Surgical History Hx of CABG (~08/2018) Hx of prostatectomy S/P cardiac cath (~05/2020) Stented coronary artery Family History Father CVD (cardiovascular disease) Mother No problems noted. Brother CVD (cardiovascular disease) Social History Housing: House Patient Tobacco Use Status: Former Tobacco user Years Smoked: 40 years ago e-Cigarette/Vaping Use: Never Used Second Hand Smoke Exposure: No service: No Current occupational status: retired Cognitive needs: No Hearing needs: No Vision needs: No Questionnaire Thrive Questionnaire Date Thrive assessed: 09/14/21 ZAIDA-7 AMB Questionnaire ZAIDA-7 Date ZAIDA - 7 assessed: 09/14/21 Source: Developed by Drs. Lalito Geronimo, Dariana Hammond, Ezequiel Nuñez and colleagues, with an educational mingo from [employer]. Review of Systems Const Reports as per HPI Physical exam (Primary Care) Tobacco/Smoking Status: Tobacco use Status Tobacco use date assessed 11/06/22 02/07/23 07:12 Patient Tobacco Use Status Former Tobacco user 02/07/23 07:12 e-Cigarette/Vaping Use Never Used 02/07/23 07:12 Thrive Assessment: Date of Thrive Assessment Date Thrive assessed 09/14/21 02/07/23 07:12 Const General: cooperative Orientation/consciousness: patient oriented x3 Neuro General: patient oriented x3 Psych Appearance: grossly normal Mental Status: mental status grossly normal Speech and movement: Clear speech present Affect: normal affect Attitude: cooperative Thought process: Normal thought process present Thought content: Normal thought content present Insight: Good insight present (Psych) Judgement: Good judgement present (Psych) Telehealth Telehealth Location of provider rendering services: practice address Location of patient: address on file Patient Identification confirmed using: Name, : Yes Telehealth method: video Patient verbally consented to treatment: Yes Patient verbally consented to billing insurance company: Yes Patient informed of any privacy concerns related to visit: Yes Minutes spent on Phone/Video with Pt.: 10 Assessment and Plan Assessment & Plan (1) Right knee pain: Code(s): M25.561 - Pain in right knee Plan The patient agreed to the use of a medical laboratory technical officer for this encounter. Scribed for GENA Moore-ANTONI by Keren Celeste medical laboratory technical officer, on 02/07/2023 at 07:10 EST. Coding Level of Care Code Tele Est Pt Level 3 (53248) Diagnoses Right knee pain M25.561
== END 2023-02-07 10:23 | disposition home or self-care (01) ==
PROVIDERS: PCP Nurse Practitioner Family; Visit Provider Nurse Practitioner Family
DX: M25.561 Pain in right knee (principal)
CPT/HCPCS: 99213

== ENCOUNTER 2023-05-09 10:21 | Outpatient (AMB) | payer MEDICARE, SELFPAY ==
--- NOTE | 2023-05-09 10:24 | A.OFFPC_ITS ---
Vital Signs 05/09/23 10:27 Weight 186 lb BP 130/80 Blood Pressure Location Lt brachial Position Sitting Pulse 66 Pulse Source Pulse Oximeter Pulse Oximetry (%) 98 Oxygen Delivery Method Room Air Intake Visit Reasons: 3 Month follow up Allergies amoxicillin Adverse Reaction (Verified 05/09/23 10:27) Unknown Tobacco use date assessed: 11/06/22 Fall risk assessment: No Falls in past year Last assessed Fall Risk: 05/09/23 Dental Screening Dental Screen Date: 05/09/23 Did you have a dental visit in the last 12 months?: Yes Did you have a dental problem in the last 6 months where you did not have access to dental care?: No Was dental information given to patient?: Patient has dentist HPI 3 Month follow up HPI Details HTN: Blood pressure is stable, managed with amlodipine 5mg, isosorbide mononitrate 30mg, and metoprolol 25mg. Denies chest pain, shortness of breath, headache, dizziness, and blurred vision. [facility] Medical History Osteoarthritis PAF (paroxysmal atrial fibrillation) Anemia Prostate CA Dyslipidemia HTN (hypertension) Chronic renal disease CAD (coronary artery disease) NSTEMI (non-ST elevated myocardial infarction) Surgical History S/P cardiac cath (~05/2020) Hx of prostatectomy Stented coronary artery Hx of CABG (~08/2018) Family History Father CVD (cardiovascular disease) Mother No problems noted. Brother CVD (cardiovascular disease) Social History Housing: House Patient Tobacco Use Status: Former Tobacco user Years Smoked: 40 years ago e-Cigarette/Vaping Use: Never Used Second Hand Smoke Exposure: No service: No Current occupational status: retired Cognitive needs: No Hearing needs: No Vision needs: No Questionnaire Thrive Questionnaire Date Thrive assessed: 09/14/21 ZAIDA-7 AMB Questionnaire ZAIDA-7 Date ZAIDA - 7 assessed: 09/14/21 Source: Developed by Drs. Lalito L. JuanpabloDariana truong Kurt Kroenke and colleagues, with an educational mingo from [employer]. Review of Systems Const Reports as per HPI Physical exam (Primary Care) Vital Signs: Last Vital Signs Pulse 66 05/09/23 10:27 BP 130/80 05/09/23 10:27 Pulse Ox 98 05/09/23 10:27 Oxygen Delivery Method Room Air 05/09/23 10:27 Tobacco/Smoking Status: Tobacco use Status Tobacco use date assessed 11/06/22 05/09/23 10:30 Patient Tobacco Use Status Former Tobacco user 05/09/23 10:30 e-Cigarette/Vaping Use Never Used 05/09/23 10:30 Thrive Assessment: Date of Thrive Assessment Date Thrive assessed 09/14/21 05/09/23 10:30 Const General: cooperative Orientation/consciousness: patient oriented x3 Resp Effort & Inspection: normal respiratory effort Auscultation: clear to auscultation bilaterally Cardio Rate: regular rate Rhythm: regular rhythm Heart sounds: S1 normal heart sound present, S2 normal heart sound present and no murmurs Neuro General: patient oriented x3 Extrem Right lower extremity: no edema Left lower extremity: no edema Psych Appearance: grossly normal Mental Status: mental status grossly normal Speech and movement: Normal speech and movement present Affect: normal affect Attitude: cooperative Thought process: Normal thought process present Thought content: Normal thought content present Insight: Good insight present (Psych) Judgement: Good judgement present (Psych) Assessment and Plan Assessment & Plan (1) HTN (hypertension): Code(s): I10 - Essential (primary) hypertension Plan: Labs ordered Plan The patient agreed to the use of a medical superintendent for this encounter. Scribed for RUBY Moore by Keren Celeste medical superintendent, on 05/09/2023 at 10:40 EST. Orders: Orders Complete Blood Count Auto Diff Today I10 - Essential (primary) hypertension Comprehensive [place]. Panel Fast Today I10 - Essential (primary) hypertension TSH reflex Free T4 Today I10 - Essential (primary) hypertension Lipid Panel Today I10 - Essential (primary) hypertension UA CC w/rflx Micro + Cult Today I10 - Essential (primary) hypertension Coding Level of Care Code Est Pt Level 3 (64144) Diagnoses HTN (hypertension) I10
[2023-05-09 10:27] VITALS: BP 130/80; PULSE 66; O2SAT 98
== END 2023-05-09 10:48 | disposition home or self-care (01) ==
PROVIDERS: PCP Nurse Practitioner Family; Visit Provider Nurse Practitioner Family
DX: I10 Essential (primary) hypertension (principal)
CPT/HCPCS: 99213

== ENCOUNTER 2023-06-21 08:00 | Outpatient (RCR) | payer MEDICARE, SELFPAY | END 2024-02-13 11:48 | disposition home or self-care (01) | LOC: HO.PTCHIC 08:00 | PROVIDERS: PCP Nurse Practitioner Family; Visit Provider Orthopaedic Surgery | DX: Z98.890 Other specified postprocedural states (principal) | CPT/HCPCS: 97110; 97112; 97163 ==

== ENCOUNTER 2023-08-23 14:19 | Outpatient (AMB) | payer MEDICARE, SELFPAY ==
--- NOTE | 2023-08-23 14:23 | A.OFFVIS_ITS ---
Intake Vital Signs 08/23/23 14:24 Height 5 ft 10 in Weight 182 lb 15.739 oz BMI 26.3 BP 120/70 Blood Pressure Location Lt brachial Position Sitting Pulse 59 Intake Visit Reasons: 1 year fu Intake Note: 1 year follow-up with ekg Spoke Maker Required: No Allergies amoxicillin Adverse Reaction (Verified 05/09/23 10:27) Unknown Medication List - Last Reconciled 08/23/23 by Morris Aguirre MD amlodipine 5 mg PO DAILY aspirin (Adult Aspirin Regimen) 81 mg PO DAILY atorvastatin 80 mg PO DAILY cholecalciferol (vitamin D3) 50 mcg PO DAILY clopidogrel 75 mg PO DAILY ezetimibe 10 mg PO DAILY isosorbide mononitrate ER 30 mg PO DAILY metoprolol succinate ER 25 mg PO DAILY multivitamin 1 tab PO DAILY nitroglycerin (Nitrostat) 0.4 mg sublingual Q5M PRN vitamin B complex (B Complex-Vitamin B12 tablet) 1 tab PO DAILY HPI HPI Comments History of Present Illness Details Skip comes for follow-up. Since I saw him last year he had knee injury and subsequently had knee surgery which put him behind for few months. Now starting to exercise. Walking 6 miles. Has notice some exertional shortness of breath. No exertional chest pain. Takes all his medications. Denies any orthopnea, PND, leg edema. No prolonged palpitation irregular heartbeat. No bleeding issues. Otherwise overall doing well. [facility] Medical History Osteoarthritis PAF (paroxysmal atrial fibrillation) Anemia Prostate CA Dyslipidemia HTN (hypertension) Chronic renal disease CAD (coronary artery disease) NSTEMI (non-ST elevated myocardial infarction) Surgical History S/P cardiac cath (~05/2020) Hx of prostatectomy Stented coronary artery Hx of CABG (~08/2018) Family History Father CVD (cardiovascular disease) Mother No problems noted. Brother CVD (cardiovascular disease) Social History Housing: House Patient Tobacco Use Status: Former Tobacco user Years Smoked: 40 years ago e-Cigarette/Vaping Use: Never Used Second Hand Smoke Exposure: No service: No Current occupational status: retired Cognitive needs: No Hearing needs: No Vision needs: No Review of Systems Const Denies chills, Denies fatigue, Denies fever(s), Denies frequent falls, Denies weakness, Denies weight gain and Denies weight loss ENT Denies dizziness Card Denies chest pain, Denies leg edema, Denies lightheadedness, Denies palpitations, Denies dyspnea, Denies dyspnea on exertion, Denies orthopnea and Denies other (loss of consciousness) Resp Denies cough, Denies dyspnea and Denies dyspnea on exertion GI Denies hematochezia and Denies change in stool character Musc Denies abnormal gait, Denies muscle weakness, Denies numbness, Denies radiating pain into limb and Denies tingling Neuro Denies abnormal gait, Denies dizziness, Denies frequent falls, Denies numbness, Denies tingling and Denies weakness Endo Denies fatigue and Denies palpitations Physical Exam Vital Signs: Last Vital Signs Pulse 59 08/23/23 14:24 BP 120/70 08/23/23 14:24 BMI result Body Mass Index 26.3 Const General: cooperative, comfortable, no acute distress, alert, awake and Physically active Nutritional Appearance: average body habitus Orientation/consciousness: patient oriented x3 Limitations: no limitations Neck Neck: Yes trachea midline, Yes supple and Yes no JVD Carotids: no bruits Resp Effort & Inspection: normal respiratory effort Auscultation: clear to auscultation bilaterally Cardio Jugular venous distension: no JVD Palpation: normal PMI Rate: regular rate Rhythm: regular rhythm Heart sounds: S1 normal heart sound present and S2 normal heart sound present GI Auscultation: normal bowel sounds Skin General skin exam: no rashes or lesions noted Neuro General: patient oriented x3 and no focal motor deficits Extrem General: Yes no clubbing, cyanosis or edema Psych Appearance: grossly normal Office Procedures EKG Details: EKG shows normal sinus rhythm with inferior and inferolateral Q-waves suggestive of prior myocardial infarction [id number], Complete Assessment & Plan Assessment & Plan (1) CAD (coronary artery disease): Code(s): I25.10 - Atherosclerotic heart disease of [place] coronary artery without angina pectoris Plan: CAD with remote coronary artery bypass grafting followed by stenting of the RCA for occluded venous graft. Patient currently having some exertional shortness of breath. Will schedule him for exercise myocardial perfusion imaging to evaluate for graft patency as well as stent patency and any progression of [place] coronary artery disease. This will be scheduled in near future. If this is within normal limits would suggest him to stop clopidogrel therapy and continue lifelong aspirin therapy. Continue aggressive vascular risk factor modification. LDL is currently well optimized. Continue current dual therapy with high-intensity statin as well as ezetimibe therapy. Continue aggressive blood pressure control. Will also obtain an echocardiogram to assess for LV systolic and diastolic function. (2) HTN (hypertension): Code(s): I10 - Essential (primary) hypertension Plan: Hypertension which is currently well optimized advised to monitor blood pressure at home maintain a log. Goal blood pressure less than 130/84. Low-salt diet was recommended. Continue current medical therapy importance of compliance with medication since was discussed. He is very compliant. Continue participate in physical activity as tolerated. Follow up in the clinic in 1 year's time, sooner p.r.n.. Thank you for allowing me to partake in his care Orders: Orders CA echo transthoracic complete Today I25.10 - Atherosclerotic heart disease of [place] coronary artery without angina pectoris CA stress test Today I25.10 - Atherosclerotic heart disease of [place] coronary artery without angina pectoris NM cardiolite stress test 2 Weeks I25.10 - Atherosclerotic heart disease of [place] coronary artery without angina pectoris, R07.9 - Chest pain, unspecified Coding Level of Care Code Est Pt Level 4 (47010) Diagnoses CAD (coronary artery disease) I25.10 HTN (hypertension) I10 CPT Codes EKG - CPT: [id number], Complete ([id number])
[2023-08-23 14:24] VITALS: BP 120/70; PULSE 59; BMI 26.3
== END 2023-08-23 15:07 | disposition home or self-care (01) ==
PROVIDERS: PCP Nurse Practitioner Family; Visit Provider Internal Medicine Cardiovascular Disease
DX: I25.10 Atherosclerotic heart disease of native coronary artery without angina pectoris (principal); I10 Essential (primary) hypertension
CPT/HCPCS: 93010; 99214

== ENCOUNTER → 2023-08-23 14:19 | Outpatient (BNVA) | payer MEDICARE, SELFPAY | PROVIDERS: PCP Nurse Practitioner Family; Visit Provider Internal Medicine Cardiovascular Disease | DX: I25.10 Atherosclerotic heart disease of native coronary artery without angina pectoris (principal); I10 Essential (primary) hypertension; R07.9 Chest pain, unspecified | CPT/HCPCS: 93005; 99212 ==

== ENCOUNTER 2023-09-14 08:58 | Outpatient (REF) | payer MEDICARE, SELFPAY ==
[2023-09-14 09:13] LABS: MANUAL DIFF FLAG NO
[2023-09-14 10:12] LABS: Basophils Percent Auto 0.7 % (0-2); Eosinophils Absolute Auto 0.1 X10*3/uL (0.0-0.4); Eosinophils Percent Auto 1.1 % (0-4); Hematocrit 38.8 % (42.0-52.0); Hemoglobin 13.3 g/dl (14.0-18.0); Imm Gran Abs Auto 0.03 X10*3/uL (0.00-0.03); Imm Gran Pct Auto 0.5 % (0.0-0.4); Lymphocytes Absolute Auto 1.2 X10*3/uL (1.2-4.9); Mean Corpuscular HGB Conc 34.3 g/dl (31.0-36.0); Mean Corpuscular Volume 93.3 fL (80.0-98.0); Mean Platelet Volume 10.9 fL (9.4-12.4); Monocytes Absolute Auto 0.7 X10*3/uL (0.1-1.2); Monocytes Percent Auto 11.7 % (2-11); Neutrophils Absolute Auto 3.7 x10*3/uL (2.0-8.3); Platelet Count 134 X10*3/uL (160-400); Red Blood Count 4.16 X10*6/uL (4.60-5.80); Red Cell Distribution Width 13.2 % (11.0-16.0); White Blood Count 5.7 X10*3/uL (4.8-10.8)
[2023-09-14 10:57] LABS: Appearance Urine Clear; Color Urine Dark Yellow; Glucose Urine UA Negative (Negative); Leukocyte Esterase Urine Negative (Negative); Nitrite Urine Negative (Negative); PH 5.5 (5.0-9.0); Specific Gravity - Urine 1.025 (1.005-1.025); Urine Blood Negative (Negative); Urine Ketones Negative (Negative); Urine Protein Negative (Neg-Trace)
[2023-09-14 11:51] LABS: TSH reflex Free T4 0.65 uIU/mL (0.32-4.0)
[2023-09-14 12:03] LABS: Anion Gap 11 (12-20)
[2023-09-14 12:08] LABS: Alanine Aminotransferase 17 U/L (0-40); Albumin Level 4.2 g/dL (3.5-5.0); Alkaline Phosphatase 52 U/L (39-117); Aspartate Amino Transferase 25 U/L (5-37); Bilirubin Total 0.8 mg/dL (0.0-1.0); Blood Urea Nitrogen 30 mg/dL (9-16); Calcium 9.2 mg/dL (8.4-10.2); Carbon Dioxide 26 mmol/L (22-29); Chloride 112 mmol/L (96-108); Cholesterol 102 mg/dL (<200); Estimated Glomerular Filt Rate > 60; Glucose Fasting 95 mg/dL (60-99); HDL Cholesterol 45 mg/dL (>40); LDL Cholesterol Calculated 49 mg/dL (<100); Potassium 4.5 mmol/L (3.3-5.1); Sodium 144 mmol/L (135-145); Total Protein 6.9 g/dL (6.5-8.0); Triglycerides 41 mg/dL (<150)
== END 2023-09-14 08:59 | disposition home or self-care (01) ==
LOC: HO.LAB 08:58
PROVIDERS: PCP Nurse Practitioner Family; Visit Provider Nurse Practitioner Family
DX: I10 Essential (primary) hypertension (principal)
CPT/HCPCS: 36415; 80053; 80061; 81003; 84443; 85025

== ENCOUNTER 2023-09-18 09:04 | Outpatient (AMB) | payer MEDICARE, SELFPAY ==
--- NOTE | 2023-09-18 09:05 | A.OFFVIS_ITS ---
Intake Vital Signs 09/18/23 09:10 Weight 182 lb BP 120/82 Blood Pressure Location Lt brachial Position Sitting Pulse 65 Pulse Source Pulse Oximeter Pulse Oximetry (%) 99 Oxygen Delivery Method Room Air Intake Visit Reasons: SWV G0439 Intake Note: Patient here for SWV Allergies amoxicillin Adverse Reaction (Verified 09/18/23 09:55) Unknown Medication List - Last Reconciled 09/18/23 by RUBY Valdovinos amlodipine 5 mg PO DAILY aspirin (Adult Aspirin Regimen) 81 mg PO DAILY atorvastatin 80 mg PO DAILY cholecalciferol (vitamin D3) 50 mcg PO DAILY clopidogrel 75 mg PO DAILY ezetimibe 10 mg PO DAILY isosorbide mononitrate ER 30 mg PO DAILY metoprolol succinate ER 25 mg PO DAILY multivitamin 1 tab PO DAILY nitroglycerin (Nitrostat) 0.4 mg sublingual Q5M PRN vitamin B complex (B Complex-Vitamin B12 tablet) 1 tab PO DAILY Do you need a note to return to daycare/school/sports/work: No HPI SWV G0439 HPI Details Pt is here for an SWV. Denies fever, chills, and dizziness. [place] of care in scan pile. PPP will be scanned in chart and copy will be given to pt. pt is seeing cardiology and urology. Pt reports having to cancel his colon screen multiple times, will order cologuard, pt agrees. [facility] Medical History Osteoarthritis PAF (paroxysmal atrial fibrillation) Anemia Prostate CA Dyslipidemia HTN (hypertension) Chronic renal disease CAD (coronary artery disease) NSTEMI (non-ST elevated myocardial infarction) Surgical History S/P cardiac cath (~05/2020) Hx of prostatectomy Stented coronary artery Hx of CABG (~08/2018) Family History Father CVD (cardiovascular disease) Mother No problems noted. Brother CVD (cardiovascular disease) Social History Housing: House Patient Tobacco Use Status: Former Tobacco user Years Smoked: 40 years ago e-Cigarette/Vaping Use: Never Used Second Hand Smoke Exposure: No service: No Current occupational status: retired Cognitive needs: No Hearing needs: No Vision needs: No Questionnaire Medicare Wellness Checkup [age] What gender do you identify with?: male During the past 4 weeks, how much have you been bothered by emotional problems such as feeling anxious, depressed, irritable, sad or downhearted, and blue?: not at all During the past 4 weeks, has your physical & emotional health limited your social activities with family, friends, neighbors, or groups?: not at all During the past 4 weeks, how much bodily pain have you generally had?: mild pain During the past 4 weeks, was someone available to help you if you needed & wanted help?: yes, as much as I wanted During the past 4 weeks, what was the hardest physical activity you could do for at least 2 minutes?: moderate Can you get to places out of walking distance without help? (For eg., can you travel alone on buses, taxis or drive your car?): Yes Can you go shopping for groceries or clothes without someone's help?: Yes Can you prepare your own meals?: Yes Can you do your housework without help?: Yes Because of any health problems, do you need the help of another person with your personal care needs such as eating, bathing, dressing or getting around the house?: No Can you handle your own money without help?: Yes During the past 4 weeks, how would you rate your health in general?: good During the past 4 weeks how have things been going for you?: pretty well Are you having difficulties driving your car?: no Do you always fasten your seat belt when you are in a car?: no During past 4 weeks, have you been bothered by the following: never: Trouble eating well?, Teeth or denture problems? and Problems using the telephone?, seldom: Falling or dizzy when standing up and Tiredness or fatigue? and always: Sexual problems? Have you fallen 2 or more times in the past year?: No Are you afraid of falling?: No Are you a smoker?: no During the past 4 weeks, how many drinks of wine, beer, or other alcoholic beverages did you have?: no alcohol at all Do you exercise for about 20 minutes 3 or more times a week?: yes, some of the time Have you been given information to help with the following?: no: Hazards in your house that might hurt you? and no: Keeping track of your medications? How often do you have trouble taking medicines the way you have been told to take them?: I always take medicine as prescribed How confident are you that you can control & manage most of your health problems?: very confident What is your race?: White Mini Mental State Exam (MMSE) Orientation What is the (year) (season) (date) (day) (month)?: year (2023) Where are we (state) (county) (town or city) (hospital) (floor[place] Registration Name of 3 unrelated objects clearly and slowly, then ask patient to repeat all 3 of them. (1st repeat determines score. Make sure they can repeat all three): object 1, object 2 and object 3 Attention & Calculation (CHOOSE ONE) Spell WORLD backwards (DLROW): 5 letters Recall Ask patient to repeat the 3 items from question #3.: object 1, object 2 and object 3 Language Show patient a wristwatch & ask what it is. Repeat for pencil.: watch and pencil Ask the patient to repeat the phrase 'No ifs, ands, or buts' after you.: correct Ask the patient to 'take a piece of paper with their right hand' 'fold paper in half' 'place paper on floor': take paper in right hand, fold paper in half and place paper on floor Print the sentence 'CLOSE YOUR EYES' on a piece. If patient actually closes eyes then score.: followed written direction Give patient a blank piece of paper & ask to write a sentence. Score if it contains a noun & verb.: sentence contains subject and verb Ask patient to copy figure of intersecting pentagons exactly. Score if all 10 angles & 2 intersects are included.: all 10 angles present & 2 are intersected Score Score: 22 Activity of Daily Living Bathing - sponge bath, tub bath or shower: receives no assistance (gets in/out by self, if usual bathing means Dressing - getting clothes from closets & drawers, including inner/outer garments & fasteners.: gets clothes & gets completely dressed without help Toileting - going to the 'toilet room' for urine/bowel elimination & cleaning self/arranging clothes: goes to toilet room, cleans self, arranges clothes without help Transfer: moves in & out of bed and chair without help (may use support object) Continence: controls urination/bowel movements completely by self Feeding: feeds self without help Total Score: 0 Information obtained from: patient Using telephone: independent Traveling: independent Shopping: independent Preparing meals: independent Housework: independent Taking medicine: independent Managing money: independent PHQ-9 Over the last 2 weeks, how often have you been bothered by any of the following problems? 1. Little interest or pleasure in doing things: not at all 2. Feeling down, depressed, or hopeless: not at all 3. Trouble falling or staying asleep, or sleeping too much: not at all 4. Feeling tired or having little energy: not at all 5. Poor appetite or overeating: not at all 6. Feeling bad about yourself - or that you are a failure or have let yourself or your family down: not at all 7. Trouble concentrating on things, such as reading the newspaper or watching television: not at all 8. Moving or speaking so slowly that other people could have noticed. Or the opposite - being so fidgety or restless that you have been moving around a lot more than usual: not at all 9. Thoughts that you would be better off or of hurting yourself in some way: not at all Total score: 0 Depression Screening Interpretation: Negative Depression Screening Done: Yes Source: Developed by Drs. Lalito Geronimo, Dariana Hammond, Ezequiel Nuñez and colleagues, with an educational mingo from [employer]. Review of Systems Const Reports as per HPI Physical Exam Vital Signs: Last Vital Signs Pulse 65 09/18/23 09:10 BP 120/82 09/18/23 09:10 Pulse Ox 99 09/18/23 09:10 Oxygen Delivery Method Room Air 09/18/23 09:10 Const General: cooperative Orientation/consciousness: patient oriented x3 Neuro Other: - romberg, can tandem walk, can walk and turn, can rise from sitting to standing, passed whisper test General: patient oriented x3 Psych Appearance: grossly normal Mental Status: mental status grossly normal Speech and movement: Normal speech and movement present Affect: normal affect Attitude: cooperative Thought process: Normal thought process present Thought content: Normal thought content present Insight: Good insight present (Psych) Judgement: Good judgement present (Psych) Assessment & Plan Assessment & Plan (1) Encounter for subsequent annual wellness visit (AWV) in Medicare patient: Code(s): Z00.00 - Encounter for general adult medical examination without abnormal f indings Plan The patient agreed to the use of a health care / medical job titles for this encounter. Scribed for RUBY Moore by Keren Celeste health care / medical job titles, on 09/18/2023 at 09:35 EST. Orders: Referrals Cologuard Test Z12.11 - Encounter for screening for malignant neoplasm of colon, Z12.12 - Encounter for screening for malignant neoplasm of rectum Quality Reporting (2019) Depression/Bipolar (159/160/161/177) PHQ-9: Total score: 0 Coding Level of Care Code Medicare Subsequent (G0439) Diagnoses Encounter for subsequent annual wellness visit (AWV) in Medicare patient Z00.00 Advance Care Planning Forms completed: Health Care Proxy (form given to pt), MOLST (form filled out) and Living will (encouraged pt to get this done)
[2023-09-18 09:10] VITALS: BP 120/82; PULSE 65; O2SAT 99
== END 2023-09-18 10:17 | disposition home or self-care (01) ==
PROVIDERS: PCP Nurse Practitioner Family; Visit Provider Nurse Practitioner Family
DX: Z00.00 Encounter for general adult medical examination without abnormal findings (principal)
CPT/HCPCS: G0439

== ENCOUNTER → 2023-09-28 08:56 | Outpatient (REF) | payer MEDICARE, SELFPAY ==
--- NOTE | ~2023-09-28 | NM_ITS ---
Exercise Myocardial perfusion study Indication: Chest pain to evaluate for myocardial ischemia Technique: The patient was brought in for an exercise perfusion study on 09/28/2023. Patient performed exercise as per Tyrel protocol and was injected 30 mCi of sestamibi was given intravenously one target HR was achieved. Images were obtained using the SPECT gamma camera interlaced with the gating device. Images were obtained in supine position. Resting perfusion study was performed on 10/02/2003. Patient was administered 30 mCi of sestamibi intravenously at rest. Images were then obtained in supine position. Images obtained with and without CT attenuation. Total DLP 92 mGy-cm. Images were processed with the software and compared side to side in short axis, horizontal long axis and vertical long axis views. Findings: The stress perfusion study showed mildly reduced uptake in the basal and mid inferior as well as mildly reduced uptake in the inferoseptal wall of the LV myocardium. Attenuation corrected images show mildly reduced uptake in the small area of inferoapical wall of the LV myocardium.. The gated study shows normal LV systolic function with calculated LVEF of 66%. LV cavity is normal in size. The gated study shows normal systolic wall thickening and contraction of all segments. There is no transient ischemic dilation. Resting study shows no change in perfusion pattern compared to stress perfusion study. Gating at rest reveals normal systolic wall motion with ejection fraction at 57%. The findings are consistent with no clear reversible defect suggestive of ischemia. Small minimal intensity defect is either artifactual suggestive of a small area of nontransmural infarct. NM/NM cardiolite stress test Impression: 1. No evidence of ischemia with small area of inferoapical nontransmural infarct versus artifact 2. Gated LVEF is 66% 3. Transient ischemic dilatation not present Stress EKG is negative for ischemia
--- NOTE | 2023-09-28 08:59 | CA_ITS ---
Acquisition Time: 2023-09-28 10:02:21 Total Exercise Time: 00:09:34 Test Indications: AFIB, SOB Medications: SEE H Protocol: PAMELLA Max HR: 133 BPM 90% of Pred: 147 BPM Max BP: 160/078 mmHG Max Work Load: 10.8 METS Exercise stress test exercise 9 in 34 sec of Pamella protocol achieving 90% MPHR, with mild SOB 2/10 chest pressure, with isolated PVCs and PACs, with normotensive response to exercise, with T wave inversion lead 3. Chest pressure resolved with rest. Nuclear images pending. Test reviewed with Dr. Aguirre Referred By: Morris Aguirre Overread By: Kristina Colón
--- NOTE | 2023-09-28 08:59 | CA_ITS ---
Transthoracic Echocardiogram Patient (Last, First, Middle): Kemal Persaud S Gender: Male Date of : 1950 Age: 73 Procedure Date: 09/28/2023 Procedure Type: Transthoracic Echocardiogram Location: OP Height: 177.8 cm Weight: 83.92 kg BSA: 2.02 m2 Heart Rate: bpm BP: 132 / 74 mmHg Spooling Supervisor: TO Referring MD: Morris Aguirre MD Roll Finisher: Morris Aguirre MD Symptoms: I25.10 - Atherosclerotic heart disease of [place] coronary artery without... Study Quality: Fair/Contrast ECG Rhythm: Sinus Conclusions: - 1. Normal LV ejection fraction of 60 65% with grade 1 diastolic dysfunction 2. Mildly dilated left ventricle 3. Mildly reduced RV systolic function 4. Cardiac valvular Doppler is within normal limits 5. Upper limits of normal ascending aortic size 6. Normal RV systolic pressure 7. No pericardial effusion Findings Procedure Information Contrast agent, definity, is being given per protocol without apparent complications. Left Ventricle Normal left ventricular size, thickness, and systolic function. The visually estimated ejection fraction is between 60-65%. Spectral Doppler is indicative of an impaired relaxation filling pattern. E/E prime ratio is <8, consistent with normal filling pressures. Evidence suggests grade I (mild) diastolic dysfunction. Right Ventricle Normal right ventricular cavity size. There is mildly decreased right ventricular systolic function. Atria The left atrium is mildly dilated. There is no evidence of interatrial shunt. The right atrium is normal in size. Aortic Valve Normal aortic valve structure and function. There is no aortic valve stenosis. There is no aortic valve regurgitation. Mitral Valve There is mild anterior and posterior mitral leaflet thickening. There is trace mitral valve regurgitation. There is no mitral valve stenosis. Pulmonic Valve The pulmonic valve is likely normal. There is trace to mild pulmonic valve regurgitation. Tricuspid Valve Normal tricuspid valve structure. There is trace tricuspid valve regurgitation. The right ventricular systolic pressure is normal. The right ventricular systolic pressure is 17 mmHg. Normal right atrial pressure. There is no evidence of pulmonary hypertension. Great Vessels All visible segments of the aorta are normal in size. The pulmonary artery was not well visualized. Small plaque is seen in the sino tubular ridge. Venous The inferior vena cava is normal in size and collapses greater than 50% with inspiration. Pericardium/Pleural There is no evidence of pericardial effusion. Prior Study Comparison No significant change compared to prior study dated: 09/26/2021. Measurements 2D Linear Measurements IVSd: 1.00 0.6-0.9/0.6-1.0 cm LVIDd: 4.72 3.9-5.3/4.2-5.9 cm LVIDd Index: 2.34 2.4-3.2/2.2-3.1 cm/m2 LVIDs: 3.13 2.0-3.6 cm LVPWd: 0.83 0.7-1.1 cm LA Diam: 4.60 2.7-3.8/3.0-4.0 cm LAIDs Index: 2.28 1.5-2.3 cm/m2 LV Mass: 183.03 67-162/88-224 g LV Mass Index: 90.61 43-95/49-115 g/m2 LVOT Diam: 2.20 3.0+(-)1.3 cm 2D Systolic Function EF 4C: 59.00 >55% EF 2C: 63.70 >55% EF BiP: 60.20 >55% Mitral Valve MV Pk E: 0.50 MV PK A: 0.59 MV Decel Time: 259.00 E/A: 0.80 E'Lateral: 7.83 E'Medial: 4.90 E/E' Med: 10.10 E/E' Lat: 6.30 PHT: 76.00 MVA PHT: 2.89 Decel [place]: 1.92 Aortic Valve AoV Pk Vito: 1.36 AoV Mn Vito: 0.95 AoV VTI: 0.35 AoV Pk Grad: 7.00 Aov Mn Grad: 4.00 IFEOMA Cont.VTI: 2.23 LVOT LVOT Pk Vito: 0.91 LVOT Mn Vito: 0.66 LVOT VTI: 0.21 LVOT Pk Grad: 3.00 LVOT Mn Grad: 2.00 LVOT Diam: 2.20 LVOT Area: 3.80 Diastolic Function MV Pk E: 0.50 MV Pk A: 0.59 E/A: 0.80 E'Medial: 4.90 E/E' Med: 10.10 E' Laterial: 7.83 E/E' Lat: 6.30 Right Ventricle TAPSE (mm): 16.10 TVS' Vito: 9.03 Tricuspid Valve TR Pk Vito: 1.86 TR Pk Grad: 14.00 RA Press: 3.00 RVSP: 17.00 Great Vessels Aorta Sinus of Valsalva: 3.15 2.0-3.[address] [place]: 2.34 1.7-3.4 cm Ao Asc: 3.60 2.1-3.4 cm Ao Arch: 3.30 Updated in Other Vendor System with Status of Final Morris Aguirre MD electronically signed on 09/29/2023 6:35:29 AM with status of Final
== END ==
LOC: HO.CARD 08:56
PROVIDERS: PCP Nurse Practitioner Family; Visit Provider Internal Medicine Cardiovascular Disease
DX: R07.9 Chest pain, unspecified (principal); I25.10 Atherosclerotic heart disease of native coronary artery without angina pectoris
CPT/HCPCS: 78452; 93017; 93306; A9500; Q9957

== ENCOUNTER → 2023-09-28 08:59 | Outpatient (BNV) | payer MEDICARE, SELFPAY | PROVIDERS: PCP Nurse Practitioner Family; Visit Provider Internal Medicine Cardiovascular Disease | DX: R07.9 Chest pain, unspecified (principal) | CPT/HCPCS: 78452; 93016; 93018; 93306; 93320; 93350; 93352 ==

== ENCOUNTER 2023-11-10 12:44 | Emergency (ER) | payer MEDICARE, SELFPAY ==
--- NOTE | ~2023-11-10 | XR_ITS ---
EXAMINATION: XR HAND/WRIST, RIGHT CLINICAL INFORMATION: Pain following fall in the right hand COMPARISON: None TECHNIQUE: PA, lateral, and oblique views of the right hand and wrist. FINDINGS: The bones and soft tissues are normal. No fracture. Alignment is anatomic. Joint spaces are maintained. No erosions or soft tissue calcifications. XR/XR hand wrist RT IMPRESSION: Normal radiographs of the hand and wrist.
--- NOTE | ~2023-11-10 | CT_ITS ---
EXAMINATION: CT HEAD WITHOUT CONTRAST CT FACIAL BONES WITHOUT CONTRAST CT CERVICAL SPINE WITHOUT CONTRAST CLINICAL INFORMATION: Status post fall, patient on anticoagulation COMPARISON: CT head from October 2013 TECHNIQUE: Imaging was performed from the skull base to vertex without intravenous administration of contrast. In addition, helical noncontrast CT imaging was acquired through the cervical spine and facial bones and source images were reviewed along with axial reconstructions and sagittal and coronal MPRs. This CT examination was performed using dose optimization techniques as appropriate, variously including the following: *Automated exposure control. *Adjustment of mA and/or kV according to patient size (this includes techniques or standardized protocols for targeted exams where dose is matched to indication/reason for exam; i.e. extremities or head). *Use of iterative reconstruction technique. DLP: 775 mGy-cm FINDINGS: Head: There is no evidence of acute intracranial hemorrhage or edematous territorial infarction. [place]-white matter differentiation is preserved. There is no abnormal attenuation within the brain parenchyma. The ventricles are normal in morphology and size. No evidence for obstructive hydrocephalus. No abnormal mass effect or midline shift. No extra-axial fluid collections. No acute soft tissue or osseous abnormalities. Maxillofacial Bones: No evidence of maxillofacial bone fractures. The zygomatic arches remain intact. No nasal bone fracture. The nasal septum remains midline. No evidence of mandibular or maxillary fracture. The mandibular condyles remain well-seated in their respective temporal articular grooves. Normal appearance of the intraconal and extraconal fat. No evidence of traumatic injury to the extraocular musculature or globes. The mastoid air cells and visualized paranasal sinuses are clear. No layering fluid collections. Cervical Spine: The atlantooccipital and atlantoaxial articulations remain well aligned. Straightening of the normal cervical lordosis. Otherwise, there is anatomic alignment of the vertebral bodies and posterior elements. No evidence of acute fracture or subluxation. The vertebral body heights and disc spaces are maintained. There is no prevertebral soft tissue swelling. The thyroid gland and remaining cervical soft tissues are within normal limits. The lung apices demonstrate no abnormalities. CT/CT cervical spine wo IV con IMPRESSION: No acute intracranial, maxillofacial bone, or cervical abnormalities.
--- NOTE | 2023-11-10 13:00 | ED_ITS ---
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 Patient states he tripped while walking and hit his head on the pavement, FOOSH. Denies LOC, ambulatory after incident. Denies symptoms prior to fall including lightheadedness/dizziness. Denies vision change/loss, nausea/vomiting, abdominal pain, neck/back pain Related Data Home Medications ?Medication ?Instructions ?Recorded ?Confirmed aspirin 81 mg tablet,delayed 81 mg PO DAILY 03/30/20 10/10/23 release (Adult Aspirin Regimen) multivitamin 1 tab PO DAILY 03/30/20 10/10/23 cholecalciferol (vitamin D3) 25 50 mcg PO DAILY 06/06/22 10/10/23 mcg (1,000 unit) capsule vitamin B complex (B 1 tab PO DAILY 06/06/22 10/10/23 Complex-Vitamin B12 tablet) Previous Rx's ?Medication ?Instructions ?Recorded nitroglycerin 0.4 mg sublingual 0.4 mg sublingual Q5M PRN chest 09/22/20 tablet (Nitrostat) pain #25 tabs metoprolol succinate 25 mg 25 mg PO DAILY #90 tabs 12/14/22 tablet,extended release 24 hr atorvastatin 80 mg tablet 80 mg PO DAILY #90 tabs 01/12/23 clopidogrel 75 mg tablet 75 mg PO DAILY #90 tabs 03/23/23 isosorbide mononitrate 30 mg 30 mg PO DAILY #90 tabs 03/23/23 tablet,extended release 24 hr amlodipine 5 mg tablet 5 mg PO DAILY #90 tabs 04/20/23 ezetimibe 10 mg tablet 10 mg PO DAILY #90 tabs 04/20/23 Allergies Allergy/AdvReac Type Severity Reaction Status Date / Time amoxicillin AdvReac Unknown Verified 11/10/23 13:03 Review of Systems Review of Systems: Constitutional: No Fever, No Chills ENT/Mouth: No Ear Pain, No Nasal Congestion, No sore throat, No Rhinorrhea Cardiovascular: No Chest Pain, No SOB Respiratory: No Cough, No Sputum, No Wheezing Gastrointestinal: No Nausea, No Vomiting, No Diarrhea, No Constipation, No Abdominal pain Genitourinary: No Dysuria, No Hematuria, No Urinary Incontinence/retention Musculoskeletal: + joint pain, No Myalgias, + Joint Swelling Skin: + Skin Lesions, No rash Neuro: No Weakness, No Numbness, No Paresthesias, +BETANCOURT, No LOC Yes all other systems are reviewed and are negative Constitutional: Constitutional: Reports as per HPI Neurologic: Denies Abnormal speech present [facility] Past Medical History Attestation statement: The following information was validated with the patient. Source: old records reviewed Medical History Osteoarthritis PAF (paroxysmal atrial fibrillation) Anemia Prostate CA Dyslipidemia HTN (hypertension) Chronic renal disease CAD (coronary artery disease) NSTEMI (non-ST elevated myocardial infarction) Surgical History S/P cardiac cath (~05/2020) Hx of prostatectomy Stented coronary artery Hx of CABG (~08/2018) Family History Family History Father CVD (cardiovascular disease) Mother No problems noted. Brother CVD (cardiovascular disease) Social History Social History Housing: House Patient Tobacco Use Status: Former Tobacco user Years Smoked: 40 years ago e-Cigarette/Vaping Use: Never Used Second Hand Smoke Exposure: No Advance Directives: No Advance Directives Information Provided: No service: No Current occupational status: retired Cognitive needs: No Hearing needs: No Vision needs: No Physical Exam Vital Signs: Vital Signs: Last Vital Signs Temp 98 F 11/10/23 16:53 Pulse 53 11/10/23 16:53 Resp 16 11/10/23 16:53 BP 107/80 11/10/23 16:53 Pulse Ox 98 11/10/23 16:53 O2 Del Method Room Air 11/10/23 16:53 BMI result Body Mass Index 26.3 Const: General: cooperative, healthy appearing and no acute distress Orientation/consciousness: patient oriented x3 Limitations: no limitations HEENT: Other: + abrasion to left eyebrow with underlyi ng hematoma. Mildly tender. No open wounds / laceration. No palpable step-off. EOM intact without entrapment Superficial abrasion to left chin Head: Yes normal to inspection and Yes atraumatic Ears: hearing grossly normal bilaterally General nose exam: Normal external nose present Face and sinus: Yes normal facial exam Eyes: General: appearance normal, both eyes and all related structures Conjunctivae: conjunctivae normal Pupils: Equal, round and reactive pupils present EOM: EOMs intact bilaterally Direct Ophthalmoscopy: normal light reflex Neck: Neck: Yes normal visual inspection, Yes no meningeal signs, No anterior neck swelling and No torticollis Resp: Effort & Inspection: normal respiratory effort and no respiratory distress Cardio: Rate: regular rate Peripheral pulses: Peripheral pulses 2+ throughout GI: Inspection: Yes normal to inspection : General: Yes no CVA tenderness Back/Spine/Pelvis: Other: No midline cervical/thoracic/lumbar spinous tenderness/step-off or deformity Back: no CVA tenderness Skin: Rashes: no rashes Wounds: no wounds Neuro: General: patient oriented x3, gait normal, tone normal, moves all extremities, no meningeal signs, no focal motor deficits and CN's II-XI intact bilaterally Cranial nerves: Yes CN's II-XII intact bilaterally, Yes Equal, round and reactive pupils present and Yes Bilaterally intact EOM present Cognition (Neuro): normal cognition Speech: No Abnormal speech present Gait exam (Neuro): Normal gait present Motor exam (neuro): 5/5 motor strength present throughout Extrem: Other: + superficial abrasions to bilateral pal ms. Right hand/wrist > ulnar aspect with mild tenderness. Full range of motion intact. Jufbyg-uf-apyox opposition intact. No snuffbox tenderness. Course Course Course Narrative: This is a Rapid Medical Examination (RME) performed by Steve Stockton PA-C in triage. Full HPI, ROS, assessment and treatment plan per primary provider in the Main ED. 73 y/o male with history of CAD, HTN, HLD, prostate cancer, CKD, NSTEMI, paroxysmal AFib on anticoagulation who presents to the ER for evaluation of a fall with head strike. He states he tripped while walking, hit his head on the pavement. No LOC. Sustained a laceration above the left eyebrow. No active bleeding on arrival. Mild headache on the left side. Plan: 1434--CT head/brain wo IV con/CT facial bones wo IV con/CT cervical spine wo IV con IMPRESSION: No acute intracranial, maxillofacial bone, or cervical abnormalities. XR hand wrist RT IMPRESSION: Normal radiographs of the hand and wrist. Results discussed with patient including worrisome signs and symptoms and strict return precautions, and when to return to the emergency department. They verbalized understanding and feel safe for discharge at this time. Medications Administered Discontinued Medications Generic Name Dose Route Start Last Admin Trade Name Freq PRN Reason Stop Dose Admin Bacitracin 1 appl 11/10/23 16:31 11/10/23 16:41 Bacitracin Oint 0.9 Gm Packet TOPICAL 11/10/23 16:32 1 appl ONCE ONE Administration Protocol Diphtheria/Tetanus/Acell Pertussis 0.5 ml 11/10/23 13:04 11/10/23 16:41 Diphth,Pertus(Acell),Tet Adult 0.5 Ml Syringe IM 11/10/23 13:05 0.5 ml .ONCE ONE Administration Medical Decision Making Medical Decision Making MDM Narrative: 73-year-old male with a past medical history of osteoarthritis, proximal AFib on anticoagulation, anemia, HLD, HTN, CKD, NSTEMI, presenting to the ED complaining of headache and abrasions s/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 On exam vital signs stable, NAD, nontoxic appearing, physical exam as noted above. No focal neuro deficits. No midline spinous tenderness or red flag symptoms. Ambulating with steady gait. Concern for fracture vs contusions. No evidence of infection. No evidence of globe rupture Plan: X-rays and CTs ordered in triage. Wound care Please refer to course for remaining clinical decision making, interpretation of labs/imaging results, and discussions with consultants and/or family members. Differential Diagnosis Differential Diagnoses: The differential diagnosis associated with the presentation includes As above Admission/Observation Consideration of admission/observation: Escalation of care including admission/observation considered Lab Data [facility] Lab Attestation statement: I reviewed the patient's lab results. Radiology Impression Discussion of test interpretation with radiology: I have reviewed the radiologist's reading. Independent Historian Clinical information obtained from an independent historian. History obtained from or confirmed by: Spouse External Record Review External record reviewed: Inpatient record, Office record, Outpatient record, Prior outpatient labs, Prior outpatient radiology, Primary care record and Outside ED record Tests considered The following testing was considered but not selected: As above Prescription Management I considered prescription management with: Pain Medication Chronic Conditions Patient?s care impacted by: Other (AFib) Discharge Plan Discharge Clinical Impression: Abrasion, Head injury, Fall Patient Disposition: Home, Self-Care Instructions: Head Injury (ED) Additional Instructions: Please apply bacitracin or Neosporin at home to your wounds. Keep dry and clean Your imaging studies were reassuring Take Tylenol for pain Continue other home medications If you develop constant worsening headache, weakness, vision change/loss, nausea/vomiting return to the ED Prescriptions: No Action nitroglycerin [Nitrostat] 0.4 mg tablet, sublingual 0.4 mg sublingual Q5M PRN (Reason: chest pain) Qty: 25 2RF Rx Instructions: do not exceed 3 doses per episode metoprolol succinate 25 mg tablet extended release 24 hr 25 mg PO DAILY Qty: 90 3RF atorvastatin 80 mg tablet 80 mg PO DAILY Qty: 90 3RF isosorbide mononitrate 30 mg tablet extended release 24 hr 30 mg PO DAILY Qty: 90 3RF clopidogrel 75 mg tablet 75 mg PO DAILY Qty: 90 3RF amlodipine 5 mg tablet 5 mg PO DAILY Qty: 90 3RF ezetimibe 10 mg tablet 10 mg PO DAILY Qty: 90 3RF aspirin [Adult Aspirin Regimen] 81 mg tablet,delayed release (DR/EC) 81 mg PO DAILY multivitamin Tablet 1 tab PO DAILY vitamin B complex [B Complex-Vitamin B12] Tablet 1 tab PO DAILY cholecalciferol (vitamin D3) 25 mcg (1,000 unit) capsule 50 mcg PO DAILY Referrals: Hawk Charles, [employer] [Primary Care Provider] - 3 days Interventions: ED Discharge Assessment Last Done: 11/10/23 16:53 Discharge Date/Time: 11/10/23 16:54 Print Language: [place]
[2023-11-10 13:02] VITALS: BP 107/80; PULSE 53; RESP 16; TEMP 36.6; O2SAT 98; BMI 26.3
[2023-11-10] MEDS: Diphth,Pertus(ACell),Tet Adult 0.5 ML SYRINGE IM (16:41)
[2023-11-10] MEDS: Bacitracin Oint 0.9 GM PACKET 1 APPL TOPICAL (16:41)
[2023-11-10 16:53] VITALS: BP 107/80; PULSE 53; RESP 16; TEMP 36.6; O2SAT 98
== END 2023-11-10 16:54 | disposition home or self-care (01) ==
LOC: HO.ED 16:51
PROVIDERS: Emergency Provider Student in an Organized Health Care Education/Training Program; PCP Nurse Practitioner Family
DX: S09.90XA Unspecified injury of head, initial encounter (principal); S00.212A Abrasion of left eyelid and periocular area, initial encounter; W01.0XXA Fall on same level from slipping, tripping and stumbling without subsequent striking against object, initial encounter; R51.9 Headache, unspecified; Y93.01 Activity, walking, marching and hiking; Y92.480 Sidewalk as the place of occurrence of the external cause; Y99.9 Unspecified external cause status
CPT/HCPCS: 70450; 70486; 72125; 73110; 73130; 90471; 90715; 99282; 99284

== ENCOUNTER 2024-03-04 08:04 | Outpatient (AMB) | payer MEDICARE, SELFPAY ==
[2024-03-04 08:10] VITALS: BP 132/70; PULSE 55; O2SAT 97; BMI 26.3
--- NOTE | 2024-03-04 08:11 | MHC.PC.OV ---
Vital Signs 03/04/24 08:10 Height 5 ft 10 in Weight 183 lb BMI 26.3 BP 132/70 Blood Pressure Location Lt brachial Position Sitting Pulse 55 Pulse Source Pulse Oximeter Pulse Oximetry (%) 97 Intake Visit Reasons: 6m F/U - see comments Intake Note: pt is here for 6 month follow up regarding HTN Allergies amoxicillin Adverse Reaction (Verified 03/04/24 08:29) Unknown Medication List - Last Reconciled 03/04/24 by RUBY Valdovinos amlodipine 2.5 mg PO DAILY aspirin (Adult Aspirin Regimen) 81 mg PO DAILY atorvastatin 80 mg PO DAILY cholecalciferol (vitamin D3) 50 mcg PO DAILY clopidogrel 75 mg PO DAILY ezetimibe 10 mg PO DAILY isosorbide mononitrate ER 30 mg PO DAILY metoprolol succinate ER 12.5 mg PO DAILY multivitamin 1 tab PO DAILY nitroglycerin (Nitrostat) 0.4 mg sublingual Q5M PRN vitamin B complex (B Complex-Vitamin B12 tablet) 1 tab PO DAILY Tobacco use date assessed: 03/04/24 Fall risk assessment: 1 Fall in past year Last assessed Fall Risk: 03/04/24 Dental Screening Dental Screen Date: 03/04/24 Did you have a dental visit in the last 12 months?: Yes Did you have a dental problem in the last 6 months where you did not have access to dental care?: No Was dental information given to patient?: Patient has dentist HPI 6m F/U - see comments HPI Details HTN: Blood pressure is managed with amlodipine 2.5mg, isosorbide mononitrate 30mg, and metoprolol 12.5mg. Blood pressure is stable. Denies chest pain, shortness of breath, headache, dizziness, and blurred vision. Pt is following up with interventional radiology in [place]. There was a possible cancerous area to his left clavicle, this is being monitored (very small according to pt). Pt also follows up with cardiology [facility] Medical History Osteoarthritis PAF (paroxysmal atrial fibrillation) Anemia Prostate CA Dyslipidemia HTN (hypertension) Chronic renal disease CAD (coronary artery disease) NSTEMI (non-ST elevated myocardial infarction) Surgical History S/P cardiac cath (~05/2020) Hx of prostatectomy Stented coronary artery Hx of CABG (~08/2018) Family History Father CVD (cardiovascular disease) Mother No problems noted. Brother CVD (cardiovascular disease) Social History Housing: House Patient Tobacco Use Status: Former Tobacco user Years Smoked: 40 years ago e-Cigarette/Vaping Use: Never Used Second Hand Smoke Exposure: No service: No Current occupational status: retired Cognitive needs: No Hearing needs: No Vision needs: No Questionnaire PHQ-9 Over the last 2 weeks, how often have you been bothered by any of the following problems? 1. Little interest or pleasure in doing things: not at all 2. Feeling down, depressed, or hopeless: not at all 3. Trouble falling or staying asleep, or sleeping too much: not at all 4. Feeling tired or having little energy: not at all 5. Poor appetite or overeating: not at all 6. Feeling bad about yourself - or that you are a failure or have let yourself or your family down: not at all 7. Trouble concentrating on things, such as reading the newspaper or watching television: not at all 8. Moving or speaking so slowly that other people could have noticed. Or the opposite - being so fidgety or restless that you have been moving around a lot more than usual: not at all 9. Thoughts that you would be better off or of hurting yourself in some way: not at all Total score: 0 Depression Screening Interpretation: Negative Depression Screening Done: Yes 05038 - PHQ-9 Billing: Yes Source: Developed by Drs. Lalito Geronimo, Dariana Hammond, Ezequiel Nuñez and colleagues, with an educational mingo from [employer]. Thrive Questionnaire Date Thrive assessed: 03/04/24 I am a: Patient What is your living situation today?: I have a steady place to live Within the past 12 months, did the food you bought not last and you didn't have the money to get more?: Never true Within the past 12 months, did you worry whether your food would run out before you got money to buy more?: Never true Do you have trouble paying for medicines?: No Do you have trouble getting transportation to medical appointments?: No Do you have trouble paying your heating and electricity bill?: No Do you have trouble taking care of your child, family member or friend?: No Do you have trouble with day-to-day activities such as bathing, preparing meals, shopping, managing finances, etc.?: No Are you interested in more education?: No Please select the resources that you would like help with: None Currently or been in a relationship where the following occur: No concerns reported THRIVE Score: 0 AUDIT C Alcohol Use Questionnaire (AUDIT-C) 1. How often do you have a drink containing alcohol?: Never 3. How often do you have six or more drinks on one occasion?: Never Total Score: 0 Score Reviewed/Action Taken: Yes ZAIDA-7 AMB Questionnaire ZAIDA-7 Date ZAIDA - 7 assessed: 03/04/24 Feeling nervous, anxious, or on edge: 0 = Not at all Not being able to stop or control worryin = Not at all Worrying too much about different things: 0 = Not at all Trouble relaxin = Not at all Being so restless that it is hard to sit still: 0 = Not at all Becoming easily annoyed or irritable: 0 = Not at all Feeling afraid as if something awful might happen: 0 = Not at all Total ZAIDA-7 score (0-4 normal; 5-9 mild; 10-14 moderate; 15-21 severe): 0 Source: Developed by Drs. Lalito Geronimo, Dariana Hammond, Ezequiel Nuñez and colleagues, with an educational mingo from [employer]. ZAIDA-7 Assessment Billing ZAIDA-7 Assessment Tool: ZAIDA-7 Assessment 23285 Review of Systems Const Reports as per HPI Physical exam (Primary Care) Vital Signs: Last Vital Signs Pulse 55 03/04/24 08:10 BP 132/70 03/04/24 08:10 Pulse Ox 97 03/04/24 08:10 BMI result Body Mass Index 26.3 Tobacco/Smoking Status: Tobacco use Status Tobacco use date assessed 03/04/24 03/04/24 08:13 Patient Tobacco Use Status Former Tobacco user 03/04/24 08:13 e-Cigarette/Vaping Use Never Used 03/04/24 08:13 PHQ-9: PHQ-9 Score PHQ-9: Total score 0 03/04/24 08:13 Depression Screening Interpretation: Negative Thrive Assessment: Date of Thrive Assessment Date Thrive assessed 03/04/24 03/04/24 08:13 Currently or been in a relationship where the following occur: No concerns reported Const General: cooperative Orientation/consciousness: patient oriented x3 Resp Effort & Inspection: normal respiratory effort Auscultation: clear to auscultation bilaterally Cardio Rate: regular rate Rhythm: regular rhythm Heart sounds: S1 normal heart sound present and S2 normal heart sound present Neuro General: patient oriented x3 Extrem Right lower extremity: no edema Left lower extremity: no edema Psych Appearance: grossly normal Mental Status: mental status grossly normal Speech and movement: Normal speech and movement present Affect: normal affect Attitude: cooperative Thought process: Normal thought process present Thought content: Normal thought content present Insight: Good insight present (Psych) Judgement: Good judgement present (Psych) Assessment and Plan Assessment & Plan (1) HTN (hypertension): Code(s): I10 - Essential (primary) hypertension Plan The patient agreed to the use of a medical art therapist for this encounter. Scribed for RUBY Moore by Keren Celeste medical art therapist, on 03/04/2024 at 08:25 EST. Orders: Orders Lipid Panel Today I10 - Essential (primary) hypertension UA CC w/rflx Micro + Cult Today I10 - Essential (primary) hypertension Complete Blood Count Auto Diff Today I10 - Essential (primary) hypertension Comprehensive [place]. Panel Fast Today I10 - Essential (primary) hypertension TSH reflex Free T4 Today I10 - Essential (primary) hypertension Coding Level of Care Code Est Pt Level 3 (70924) Diagnoses HTN (hypertension) I10 Additional Codes ZAIDA-7 Assessment Billing - ZAIDA-7 Assessment Tool: ZAIDA-7 Assessment 61203 ([id number])
== END 2024-03-04 08:43 | disposition home or self-care (01) ==
PROVIDERS: PCP Nurse Practitioner Family; Visit Provider Nurse Practitioner Family
DX: I10 Essential (primary) hypertension (principal)

== ENCOUNTER → 2024-03-04 08:04 | Outpatient (BNVA) | payer MEDICARE, SELFPAY | PROVIDERS: PCP Nurse Practitioner Family; Visit Provider Nurse Practitioner Family | DX: I10 Essential (primary) hypertension (principal) | CPT/HCPCS: 36415; 80053; 80061; 81003; 84443; 85025; 96127; 99212 ==

== ENCOUNTER 2024-03-04 08:45 | Outpatient (REF) | payer MEDICARE, SELFPAY ==
[2024-03-04 10:01] LABS: MANUAL DIFF FLAG NO
[2024-03-04 10:06] LABS: Appearance Urine Clear; Basophils Absolute Auto 0.1 X10*3/uL (0.0-0.2); Color Urine Yellow; Eosinophils Absolute Auto 0.1 X10*3/uL (0.0-0.4); Eosinophils Percent Auto 1.7 % (0-4); Glucose Urine UA Negative (Negative); Hematocrit 40.6 % (42.0-52.0); Hemoglobin 13.6 g/dl (14.0-18.0); Imm Gran Abs Auto 0.01 X10*3/uL (0.00-0.03); Imm Gran Pct Auto 0.2 % (0.0-0.4); Leukocyte Esterase Urine Negative (Negative); Lymphocytes Absolute Auto 1.2 X10*3/uL (1.2-4.9); Lymphocytes Percent Auto 22.5 % (20-40); Mean Corpuscular HGB Conc 33.5 g/dl (31.0-36.0); Mean Corpuscular Hemoglobin 32.2 pg (27.0-33.0); Mean Corpuscular Volume 96.2 fL (80.0-98.0); Mean Platelet Volume 10.9 fL (9.4-12.4); Monocytes Absolute Auto 0.6 X10*3/uL (0.1-1.2); Monocytes Percent Auto 12.2 % (2-11); Neutrophils Absolute Auto 3.2 x10*3/uL (2.0-8.3); Neutrophils Percent Auto 62.4 % (45-73); Nitrite Urine Negative (Negative); Platelet Count 130 X10*3/uL (160-400); Red Blood Count 4.22 X10*6/uL (4.60-5.80); Red Cell Distribution Width 13.1 % (11.0-16.0); Specific Gravity - Urine 1.025 (1.005-1.025); Urine Blood Negative (Negative); Urine Ketones Negative (Negative); Urine Protein Negative (Neg-Trace); White Blood Count 5.2 X10*3/uL (4.8-10.8)
[2024-03-04 10:46] LABS: Alanine Aminotransferase 22 U/L (0-40); Albumin Level 4.4 g/dL (3.5-5.0); Alkaline Phosphatase 47 U/L (39-117); Anion Gap 12 (12-20); Aspartate Amino Transferase 31 U/L (5-37); Bilirubin Total 1.2 mg/dL (0.0-1.0); Blood Urea Nitrogen 29 mg/dL (9-16); Calcium 9.5 mg/dL (8.4-10.2); Carbon Dioxide 26 mmol/L (22-29); Chloride 109 mmol/L (96-108); Cholesterol 115 mg/dL (<200); Estimated Glomerular Filt Rate > 60; Glucose Fasting 89 mg/dL (60-99); HDL Cholesterol 48 mg/dL (>40); LDL Cholesterol Calculated 55 mg/dL (<100); Potassium 4.1 mmol/L (3.3-5.1); Sodium 143 mmol/L (135-145); Total Protein 7.1 g/dL (6.5-8.0); Triglycerides 62 mg/dL (<150)
[2024-03-04 10:51] LABS: TSH reflex Free T4 0.86 uIU/mL (0.32-4.0)
== END 2024-03-04 08:46 | disposition home or self-care (01) ==
LOC: HO.HMGCLDS 08:45
PROVIDERS: PCP Nurse Practitioner Family; Visit Provider Nurse Practitioner Family
DX: Z13.89 Encounter for screening for other disorder (principal)
CPT/HCPCS: 36415; 80053; 80061; 81003; 84443; 85025

== ENCOUNTER 2024-08-21 14:03 | Outpatient (AMB) | payer MEDICARE, SELFPAY ==
[2024-08-21 14:14] VITALS: BP 112/70; PULSE 56; BMI 26.6
--- NOTE | 2024-08-21 14:14 | MHC.OFFVIS ---
Vital Signs 08/21/24 14:14 Height 5 ft 10 in Weight 185 lb 3.013 oz BMI 26.6 BP 112/70 Blood Pressure Location Lt brachial Position Sitting Pulse 56 Intake Visit Reasons: 1 year fu Intake Note: 1 year follow-up with ekg feeling good Supervisor Public Health Nursing Required: No Allergies amoxicillin Adverse Reaction (Verified 03/04/24 08:29) Unknown Medication List - Last Reconciled 08/21/24 by Morris Aguirre MD amlodipine 2.5 mg PO DAILY aspirin (Adult Aspirin Regimen) 81 mg PO DAILY atorvastatin 80 mg PO DAILY cholecalciferol (vitamin D3) 50 mcg PO DAILY ezetimibe 10 mg PO DAILY isosorbide mononitrate ER 30 mg PO DAILY metoprolol succinate ER 25 mg PO DAILY multivitamin 1 tab PO DAILY nitroglycerin (Nitrostat) 0.4 mg sublingual Q5M PRN vitamin B complex (B Complex-Vitamin B12 tablet) 1 tab PO DAILY HPI Comments Details: Skip comes for follow-up. Cardiovascular-mcnally he has been doing very well. He was no exertional symptoms. He can walk up to 6 miles without any restrictions. Has no exertional chest pain. No exertional shortness of breath. Denies orthopnea, PND, leg edema. Denies symptoms of claudication. Taking all his medications. Denies any skipped heartbeats or palpitations. No prolonged irregular heartbeat or palpitations as well. Takes all his medications. Recently been told that he might have a lesion on his left clavicle possibly related to prostate cancer. [facility] Medical History Osteoarthritis PAF (paroxysmal atrial fibrillation) Anemia Prostate CA Dyslipidemia HTN (hypertension) Chronic renal disease CAD (coronary artery disease) NSTEMI (non-ST elevated myocardial infarction) Surgical History S/P cardiac cath (~05/2020) Hx of prostatectomy Stented coronary artery Hx of CABG (~08/2018) Family History Father CVD (cardiovascular disease) Mother No problems noted. Brother CVD (cardiovascular disease) Social History Housing: House Patient Tobacco Use Status: Former Tobacco user Years Smoked: 40 years ago e-Cigarette/Vaping Use: Never Used Second Hand Smoke Exposure: No service: No Current occupational status: retired Cognitive needs: No Hearing needs: No Vision needs: No Review of Systems Const Denies chills, Denies fatigue, Denies fever(s), Denies frequent falls, Denies weakness, Denies weight gain and Denies weight loss ENT Denies dizziness Card Denies chest pain, Denies leg edema, Denies lightheadedness, Denies palpitations, Denies dyspnea, Denies dyspnea on exertion, Denies orthopnea and Denies other (loss of consciousness) Resp Denies cough, Denies dyspnea and Denies dyspnea on exertion GI Denies hematochezia and Denies change in stool character Musc Denies abnormal gait, Denies muscle weakness, Denies numbness, Denies radiating pain into limb and Denies tingling Neuro Denies abnormal gait, Denies dizziness, Denies frequent falls, Denies numbness, Denies tingling and Denies weakness Endo Denies fatigue and Denies palpitations Physical Exam Vital Signs: Last Vital Signs Pulse 56 08/21/24 14:14 BP 112/70 08/21/24 14:14 BMI result Body Mass Index 26.6 Const General: cooperative, comfortable, no acute distress, alert, awake and Physically active Nutritional Appearance: average body habitus Orientation/consciousness: patient oriented x3 Limitations: no limitations Neck Neck: Yes trachea midline, Yes supple and Yes no JVD Carotids: no bruits Resp Effort & Inspection: normal respiratory effort Auscultation: clear to auscultation bilaterally Cardio Jugular venous distension: no JVD Palpation: normal PMI Rate: regular rate Rhythm: regular rhythm Heart sounds: S1 normal heart sound present and S2 normal heart sound present GI Auscultation: normal bowel sounds Skin General skin exam: no rashes or lesions noted Neuro General: patient oriented x3 and no focal motor deficits Extrem General: Yes no clubbing, cyanosis or edema Psych Appearance: grossly normal Office Procedures EKG Details: EKG shows normal sinus rhythm with Q-waves in inferior and lateral leads suggestive of prior myocardial infarction 67262-Uynrnlqlehnkrjtzk, Complete Assessment & Plan Assessment & Plan (1) CAD (coronary artery disease): Code(s): I25.10 - Atherosclerotic heart disease of koi coronary artery without angina pectoris Category: Medical Plan: CAD with prior coronary artery bypass grafting followed by acute coronary syndrome requiring stenting to the graft vessel. Since then he has done well. He is currently on triple antianginal therapy with metoprolol, isosorbide and amlodipine. He was no symptoms angina at high functional status. Continue all 3. Continue low-dose aspirin therapy. Continue aggressive risk factor modification. He is currently on dual therapy with atorvastatin ezetimibe. Target goal LDL less than 55 mg/dL. Advise annual lipid check. Continue aggressive blood pressure control. Advised to call me with any worsening symptoms. Recommend to maintain activity level as tolerated. (2) HTN (hypertension): Code(s): I10 - Essential (primary) hypertension Category: Medical Plan: Hypertension which is currently well optimized. Advised to monitor blood pressure at home maintain a log. Goal blood pressure less than 130/84. Low-salt diet was discussed. Stress mitigation strategies were discussed. Amlodipine is helping him significantly maintains blood pressure. Advised to continue the same. Will follow up in the clinic in 1 year's time, sooner p.r.n.. Thank you for allowing me to partake in his Coding Level of Care Code Est Pt Level 4 (66962) Complex EM visit Add On G2211 Diagnoses CAD (coronary artery disease) I25.10 HTN (hypertension) I10 CPT Codes EKG - CPT: 80765-Oepcezyrnmrfrwixm, Complete ([id number])
--- OUTSIDE RECORDS SUMMARY | 2024-08-21 16:47 | XMS_ITS | Encounter Summary ---
Author Organization [facility] Address [address] [place] [address] Care Team Providers Care Head Doffer Name Role Phone Keron Monroe MD Primary Care Provider [phone] Encounter Details Date Type Department Care Team (Late st Contact Info) Description 11/13/2019 Scanned Document [facility] Johnny [place], [place] [address] [place] [address] Social History Tobacco Use Types Packs/Day Years Used Date Smoking Tobacco: Former Cigarettes 0.5 12 Smokeless Tobacco: Never Comments:quit 40 yrs ago Alcohol Use Standard Drinks/Week Comments Never 0 (1 standard drink = 0.6 oz pur e alcohol) AUDIT-C Answer Date Recorded Frequency of Alcohol Consumption Never 01/08/2019 Average Number of Drinks Not on file 019 Frequency of Binge Drinking Not on file 0812/2018 Sex and Gender Information Value Date Recorded Sex Assigned at Not on file Gender Identity Not on file Sexual Orientation Not on file COVID-19 Exposure Response Date Recorded In the last month, have you been in contact with someone who was confirmed or suspected to have Coronavirus / COVID-19? Unable to assess 10/22/2019 11:16 AM EDT documented as of this encounter Plan of Treatment Not on file documented as of this encounter Visit Diagnoses Not on filedocumented in this encounter Care Teams Head Doffer Relationship Specialty Start Date End Date Keron Monroe MD [address] [place] [address] PCP - General Internal Medicine 06/18/18 documented as of this encounter
--- OUTSIDE RECORDS SUMMARY | 2024-08-21 16:47 | XMS_ITS | Encounter Summary ---
Author Organization [facility] Address [address] [place] [address] Care Team Providers Care Radio News Writer Name Role Phone Keron Monroe MD Primary Care Provider [phone] Encounter Details Date Type Department Care Team (Late st Contact Info) Description 06/27/2018 Scanned Document GENERIC EXTERNAL DATA DEPARTMENT Provider, Francis, [address] [place] [address] Social History Tobacco Use Types Packs/Day Years Used Date Smoking Tobacco: Never Assessed Sex and Gender Information Value Date Recorded Sex Assigned at Not on file Gender Identity Not on file Sexual Orientation Not on file documented as of this encounter Plan of Treatment Not on file documented as of this encounter Visit Diagnoses Not on filedocumented in this encounter Care Teams Radio News Writer Relationship Specialty Start Date End Date Keron Monroe MD [address] [place] [address] [place] [address] PCP - General Internal Medicine 06/18/18 documented as of this encounter
--- OUTSIDE RECORDS SUMMARY | 2024-08-21 16:47 | XMS_ITS | Encounter Summary ---
Author Organization [facility] Address [address] [place] [address] Care Team Providers Care High School Coach Name Role Phone Keron Monroe MD Primary Care Provider [phone] Encounter Details Date Type Department Care Team (Late st Contact Info) Description 09/17/2019 Scanned Document [address] [phone] Johnny York MD [address] [place] [id number] Social History Tobacco Use Types Packs/Day Years Used Date Smoking Tobacco: Former Cigarettes 0.5 12 Smokeless Tobacco: Never Comments:quit 40 yrs ago Alcohol Use Standard Drinks/Week Comments Never 0 (1 standard drink = 0.6 oz pur e alcohol) AUDIT-C Answer Date Recorded Frequency of Alcohol Consumption Never 01/08/2019 Average Number of Drinks Not on file 019 Frequency of Binge Drinking Not on file 12/2018 Sex and Gender Information Value Date Recorded Sex Assigned at Not on file Gender Identity Not on file Sexual Orientation Not on file documented as of this encounter Plan of Treatment Not on file documented as of this encounter Visit Diagnoses Not on filedocumented in this encounter Care Teams High School Coach Relationship Specialty Start Date End Date Keron Monroe MD [address] [place] [address] [place] [address] PCP - General Internal Medicine 06/18/18 documented as of this encounter
--- OUTSIDE RECORDS SUMMARY | 2024-08-21 16:47 | XMS_ITS ---
Author Organization [facility] Address [address] [place] [phone] Care Team Providers Care Detective Name Role Phone [email or web address] Primary Care Provider Delmar Carlos Jr REASON FOR VISIT fyi pt cancelled mar 16 procedure Encounters Encounter Location Date Provider Diagnosis [facility] [address] [place] [phone] 03/09/2023 Delmar Xiao Jr Plan Of Treatment No Information Progress Notes * NI STORM: 951 (72 yo F)Acc No.[id number]:03/09/2023 Patient:?GENIA STORM :1950???Age:72 Y???Sex:Female Address:[address] [place] [address] [place] [address] * true * Date:? Generated for Printi ng/Fadanig/eTransmitting on:?08/21/2024 04:46 PM EDT
--- OUTSIDE RECORDS SUMMARY | 2024-08-21 16:47 | XMS_ITS ---
Author Organization [facility] Address [address] [place] [phone] Care Team Providers Care Mechanism Inspector Name Role Phone EUSEBIO MCDERMOTT Primary Care Provider Delmar Carlos Jr [phone] REASON FOR VISIT screening Encounters Encounter Location Date Provider Diagnosis [facility] [address] [place] [phone] 03/16/2023 Delmar Xiao Jr Plan Of Treatment No Information Progress Notes * ES STORMCHIDIOB: 951 (74 yo M)Acc No.[id number]:03/16/2023 COLON WITH MAC Patient:?GENIA STORM Provider:?Delmar Xiao MD :1950???Age:72 Y???Sex:Male Ric e:03/16/2023 Address:[address] [place] [address] [facility] Pcp:EUSEBIO MCDERMOTT Subjective: * Chief Complaints: * ???1. Screening. * Medical History:? Objective: * Vitals:? Assessment: Plan: * Treatment: * * The named appointment provid er may or may not be the originator of this progress note, and it is not deemed complete until electronically signed by the appointment provider. Sign off status: Pending * Provider:?Delmar Xiao MD Date:?1 Generated for Олегi leigh/Faxing/eTransmitting on:?08/21/2024 04:47 PM EDT
--- OUTSIDE RECORDS SUMMARY | 2024-08-21 16:47 | XMS_ITS | Encounter Summary ---
Author Organization [facility] Address [address] [place] [address] Care Team Providers Care Capture Manager Name Role Phone Keron Monroe MD Primary Care Provider [phone] Encounter Details Date Type Department Care Team (Late st Contact Info) Description 08/11/2019 Scanned Document [facility]ic [facility] [place] [address] [phone] Johnny York MD [address] [address] Social History Tobacco Use Types Packs/Day Years [...] on filedocumented in this encounter Care Teams Capture Manager Relationship Specialty Start Date End Date Keron Monroe MD [address] [place] [address] [place] [address] PCP - General Internal Medicine 06/18/18 documented as of this encounter
--- OUTSIDE RECORDS SUMMARY | 2024-08-21 16:47 | XMS_ITS | Encounter Summary ---
Author Organization [facility] Address [address] [place] [address] Care Team Providers Care Traveling Freight Agent Name Role Phone Keron Monroe MD Primary Care Provider [phone] Encounter Details Date Type Department Care Team (Late st Contact Info) Description 06/27/2018 Scanned Document GENERIC EXTERNAL DATA DEPARTMENT Provider, Francis, [address] [place] [address] Social History Tobacco Use Types Packs/Day Years Used Date Smoking Tobacco: Never Assessed Sex and Gender Information Value Date Recorded Sex Assigned at Not on file Gender Identity Not on file Sexual Orientation Not on file documented as of this encounter Plan of Treatment Not on file documented as of this encounter Visit Diagnoses Not on filedocumented in this encounter Care Teams Traveling Freight Agent Relationship Specialty Start Date End Date Keron Monroe MD [address] [place] [address] [place] [address] PCP - General Internal Medicine 06/18/18 documented as of this encounter
--- OUTSIDE RECORDS SUMMARY | 2024-08-21 16:47 | XMS_ITS | Encounter Summary ---
Author Organization [facility] Address [address] [place] [address] Care Team Providers Care Fitter Machinist Name Role Phone Keron Monroe MD Primary Care Provider [phone] Encounter Details Date Type Department Care Team (Late st Contact Info) Description 06/27/2018 Scanned Document GENERIC EXTERNAL DATA DEPARTMENT Provider, Francis, [address] [place] [address] Social History Tobacco Use Types Packs/Day Years Used Date Smoking Tobacco: Never Assessed Sex and Gender Information Value Date Recorded Sex Assigned at Not on file Gender Identity Not on file Sexual Orientation Not on file documented as of this encounter Plan of Treatment Not on file documented as of this encounter Visit Diagnoses Not on filedocumented in this encounter Care Teams Fitter Machinist Relationship Specialty Start Date End Date Keron Monroe MD [address] [place] [address] [place] [address] PCP - General Internal Medicine 06/18/18 documented as of this encounter
--- OUTSIDE RECORDS SUMMARY | 2024-08-21 16:47 | XMS_ITS | Clinical Summary ---
Author Organization Formerly [facility] Address [address] [place] [address] Care Team Providers Care Sign Language Translator Name Role Phone Keron [place] MD Primary Care Provider + [phone] Allergies No known active allergies Medications Medication Sig Dispensed Refills Start Date End Date Status Krill Oil 1000 MG Cap Take by mouth daily. Active Multiple Vitamin tablet Take 1 tablet by mouth daily. Active atorvastatin (LIPITOR) 80 MG tablet Take 80 mg by mouth daily. Active metoPROLOL SUCCINATE (TOPROL-XL) 25 MG 24 hr tablet Take 25 mg by mouth daily. Active coenzyme Q10 (CO Q 10) 100 MG capsule Take 100 mg by mouth daily. Active oxybutynin (DITROPAN-XL) 10 MG 24 hr tabletIndications:Pro state CA (HCC) Take 1 tablet (10 mg total) by mouth daily as needed (Take as needed for bladder spasms (urgency of urination)). 14 tablet 03/28/2019 Active ticagrelor (BRILINTA) 90 MG tabletIndications:Pro state CA (HCC) Take 1 tablet (90 mg total) by mouth 2 (two) times a day. Restart in 5 days 03/29/2019 Active aspirin enteric coated (ECOTRIN LOW STRENGTH) 81 MG EC tabletIndications:Pro state CA (HCC) Continue to take one tab daily 03/29/2019 Active oxyCODONE (ROXICODONE) 5 MG immediate release tabletIndications:Pro state CA (HCC) Take 1 tablet (5 mg total) by mouth every 4 (four) hours as needed for moderate pain. Max Daily Amount: 30 mg 8 tablet 03/29/2019 Active isosorbide mononitrate (IMDUR) 30 MG 24 hr tablet 10/21/2019 Active Active Problems Problem Noted Date Diagnosed Date History of prostate cancer 04/04/2019 Resolved Problems Problem Noted Date Diagnosed Date Resolved Date Prostate CA 03/28/2019 04/04/2019 Immunizations Name Administration Dates Next Due Influenza Inactivated/Split Preservative Free IM 03/29/2019() Family History Medical History Relation Name Comments Colon cancer Father Cancer Mother Cancer, Prostate Neg Hx Prostate Problems Neg Hx Relation Name Status Comments Father Mother Social History Tobacco Use Types Packs/Day Years [...] on file Sexual Orientation Not on file Last Filed Vital Signs Vital Sign Reading Time Taken Comments Blood Pressure 145/94 07/09/2019 9:53 AM EST Pulse 65 07/09/2019 9:53 AM EST Temperature 36.6 ??C (97.8 ??F) 04/07/2019 8:26 AM ES T Respiratory Rate 16 07/09/2019 9:53 AM EST Oxygen Saturation 97% 07/09/2019 9:53 AM EST Inhaled Oxygen Concentration - - Weight 84.8 kg (187 lb) 10/22/2019 11:22 AM EDT PER PT Height 177.8 cm (5' 10 ) 10/22/2019 11:22 AM EDT PER PT Body Mass Index 26.83 10/22/2019 11:22 AM EDT Plan of Treatment Health Maintenance Due Date Last Done Comments Hepatitis C Virus Screening 1950 DTaP/Tdap/Td Vaccines (1 - Tdap) 1969 Colonoscopy 1995 Pneumococcal Vaccines 50+ (1 of 1 - PCV) 2000 Zoster (Shingles) Vaccine (1 of 2) 2000 RSV Vaccine 60 years and old er and Patients (1 - Risk 60-74 years 1-dose series) 2010 Influenza Vaccine 01/03/2024 COVID-19 Vaccine (1 - 2023-2 5 season) 2024 Abdominal Aortic Aneurysm (A AA) Screening Discontinued 05/08/2018 Hepatitis B Vaccines Aged Out No long er eligible based on patient's age to complete this topic Procedures Procedure Name Priority Date/Time Associated Diagnosis Comments CT ABDOMEN+PELVIS W/O CONTRAST Routine 05/08/2018 from Last 3 Months or Most Recently Relevant to Health Maintenance Results * CT Abdomen+pelvis w/o contrast (05/08/2018) Anatomical Region Laterality Modality Abdomen, Pelvis Computed Tomogra phy External Provider MD FERNANDEZ CT ORDERABLES from Last 3 Months or Most Recently Relevant to Health Maintenance Advance Directives * Full Code (Latest Code Status on File) Date Activated Date Inactivated Comments 03/28/2019 12:01 PM * Full Code Date Activated Date Inactivated Comments 03/28/2019 6:04 AM 03/28/2019 12:01 PM Care Teams Sign Language Translator Relationship Specialty Start Date End Date Keron [place] MD [address] [place] [address] PCP - General Internal Medicine 06/18/18
--- OUTSIDE RECORDS SUMMARY | 2024-08-21 16:47 | XMS_ITS | Encounter Summary ---
Author Organization [facility] Address [address] [place] [address] Care Team Providers Care Patent Law Specialist Name Role Phone Keron [place] MD Primary Care Provider [phone] Encounter Details Date Type Department Care Team (Late st Contact Info) Description 06/27/2018 Scanned Document GENERIC EXTERNAL DATA DEPARTMENT Provider, Francis, [address] [place] [address] Social History Tobacco Use Types Packs/Day Years Used Date Smoking Tobacco: Never Assessed Sex and Gender Information Value Date Recorded Sex Assigned at Not on file Gender Identity Not on file Sexual Orientation Not on file documented as of this encounter Plan of Treatment Not on file documented as of this encounter Visit Diagnoses Not on filedocumented in this encounter Care Teams Patent Law Specialist Relationship Specialty Start Date End Date Keron [place] MD [address] [place] [address] [place] [address] PCP - General Internal Medicine 06/18/18 documented as of this encounter
--- OUTSIDE RECORDS SUMMARY | 2024-08-21 16:47 | XMS_ITS | Encounter Summary ---
Author Organization [facility] Address [address] [place] [address] Care Team Providers Care Rv Parts And Service Director Name Role Phone Keron [place] MD Primary Care Provider +[phone] Encounter Details Date Type Department Care Team (Late st Contact Info) Description 06/27/2018 Scanned Document GENERIC EXTERNAL DATA DEPARTMENT Provider, Francis, [address] [place] [address] Social History Tobacco Use Types Packs/Day Years Used Date Smoking Tobacco: Never Assessed Sex and Gender Information Value Date Recorded Sex Assigned at Not on file Gender Identity Not on file Sexual Orientation Not on file documented as of this encounter Plan of Treatment Not on file documented as of this encounter Visit Diagnoses Not on filedocumented in this encounter Care Teams Rv Parts And Service Director Relationship Specialty Start Date End Date Keron [place] MD [address] [place] [address] [place] [address] PCP - General Internal Medicine 06/18/18 documented as of this encounter
--- OUTSIDE RECORDS SUMMARY | 2024-08-21 16:47 | XMS_ITS | Encounter Summary ---
Author Organization [facility] Address [address] [place] [address] Care Team Providers Care Account Manager Sales Representative Name Role Phone Keron [place] MD Primary Care Provider +1 [phone] Encounter Details Date Type Department Care Team (Late st Contact Info) Description 12/04/2019 Scanned Document [facility] Urologic Surgery [place] [address] [facility] [address] [place] [phone] Johnny DardenGAL[place], [place] [address] [place] [address] Social History Tobacco Use Types Packs/Day Years [...] on filedocumented in this encounter Care Teams Account Manager Sales Representative Relationship Specialty Start Date End Date Keron [place] MD [address] [place] [address] [place] [address] PCP - General Internal Medicine 06/18/18 documented as of this encounter
--- OUTSIDE RECORDS SUMMARY | 2024-08-21 16:47 | XMS_ITS | Encounter Summary ---
Author Organization [facility] Address [address] [place] [address] Care Team Providers Care Computer Artist Name Role Phone Keron [place] MD Primary Care Provider [phone] Encounter Details Date Type Department Care Team (Late st Contact Info) Description 03/20/2019 Prep for Surgery [address] [phone] Johnny York MD [address] [place] [address] Social History Tobacco Use Types Packs/Day Years [...] on filedocumented in this encounter Care Teams Computer Artist Relationship Specialty Start Date End Date Keron [place] MD [address] [place] [address] [place] [address] PCP - General Internal Medicine 06/18/18 documented as of this encounter
--- OUTSIDE RECORDS SUMMARY | 2024-08-21 16:47 | XMS_ITS | Encounter Summary ---
Author Organization [facility] Address [address] [place] [address] Care Team Providers Care Head Of Training And Development Name Role Phone Keron [place] MD Primary Care Provider [phone] Encounter Details Date Type Department Care Team (Late st Contact Info) Description 01/02/2019 Prep for Surgery [address] [phone] Johnny York MD [address] [place] [address] Prostate cancer (HCC) (Primary Dx) Social History Tobacco Use Types Packs/Day Years Used Date Smoking Tobacco: Never Smokeless Tobacco: Never Sex and Gender Information Value Date Recorded Sex Assigned at Not on file Gender Identity Not on file Sexual Orientation Not on file documented as of this encounter Plan of Treatment Not on file documented as of this encounter Visit Diagnoses Diagnosis Prostate cancer (HCC)- Primary Malignant neoplasm of prostate documented in this encounter Care Teams Head Of Training And Development Relationship Specialty Start Date End Date Keron [place] MD [address] [facility] [place] [address] PCP - General Internal Medicine 06/18/18 documented as of this encounter
--- OUTSIDE RECORDS SUMMARY | 2024-08-21 16:47 | XMS_ITS | Encounter Summary ---
Author Organization [facility] Address [address] [place] [address] Care Team Providers Care Industrial Spray Painter Name Role Phone Keron [place] MD Primary Care Provider [phone] Encounter Details Date Type Department Care Team (Late st Contact Info) Description 08/07/2018 Prep for Surgery [address] [phone] Johnny York MD [address] [place] [address] Prostate cancer (HCC) (Primary Dx) Social History [...] prostate documented in this encounter Care Teams Industrial Spray Painter Relationship Specialty Start Date End Date Keron [place] MD [address] [place] [address] PCP - General Internal Medicine 06/18/18 documented as of this encounter
--- OUTSIDE RECORDS SUMMARY | 2024-08-21 16:47 | XMS_ITS | Clinical Summary ---
Author Organization [facility] Address [address] [place] [address] Care Team Providers Care Dumbwaiter Operator Name Role Phone Unavailable Primary Care Provider Unavailabl e Allergies No known active allergies Medications Medication Sig Dispensed Refills Start Date End Date Status aspirin EC 81 MG tablet Continue to take one tab daily 0 03/29/2019 Active atorvastatin (LIPITOR) tablet 80 mg Take 80 mg by mouth. 0 Active Coenzyme Q10 100 MG capsule Take 100 mg by mouth. 0 Active metoprolol succinate (TOPROL-XL) 24 hr tablet 25 mg Take 25 mg by mouth. 0 Active Multiple Vitamin tablet Take 1 tablet by mouth. 0 Active BRILINTA 60 MG TABS Take 60 mg by mouth 2 (two) times a day. 0 08/14/2019 Active Active Problems Problem Noted Date Diagnosed Date Prostate cancer 11/10/2019 Cancer Staging:Clinical stage from 11/10/2019:Stage OFELIA(ycT3b, cN1, cM0, PSA: 38, Grade Group: 3) - Signed by Johnny Darden MD on 11/10/2019 Social History Tobacco Use Types Packs/Day Years Used Date Smoking Tobacco: Former Cigarettes 1 20 Q uit: 11/10/2019 Smokeless Tobacco: Never Alcohol Use Standard Drinks/Week Comments No 0 (1 standard drink = 0.6 oz pur e alcohol) Sex and Gender Information Value Date Recorded Sex Assigned at Not on file Gender Identity Not on file Sexual Orientation Not on file Last Filed Vital Signs Vital Sign Reading Time Taken Comments Blood Pressure 140/90 11/10/2019 9:24 AM EDT Pulse 64 11/10/2019 9:24 AM EDT Temperature 36.7 ??C (98 ??F) 11/10/2019 9:24 AM EDT Respiratory Rate 14 11/10/2019 9:24 AM EDT Oxygen Saturation 97% 11/10/2019 9:24 AM EDT Inhaled Oxygen Concentration - - Weight 86.2 kg (190 lb) 11/10/2019 9:24 AM EDT Height 177.8 cm (5' 10 ) 11/10/2019 9:24 AM EDT Body Mass Index 27.26 11/10/2019 9:24 AM EDT Plan of Treatment Health Maintenance Due Date Last Done Comments Hepatitis C Screening 1950 COVID-19 Vaccine (#1) 1955 Pneumococcal Vaccine (1 of 2 - PCV) 1956 Depression Screening 1962 Preventative Health Evaluation 1968 DTap / Tdap / Td (1 - Tdap) 1969 Shingrix-Zoster Vaccine (1 of 2) 1969 Colon Cancer Screening (Colonoscopy) 1995 Fall Risk Assessment 2015 Influenza Vaccine (#1) 2024 RSV Adult > 60+ Yrs or Pregn ant (1 - 1-dose 75+ series) 2025 Hepatitis B Vaccines Aged Out No long er eligible based on patient's age to complete this topic RSV Ped < 20 months Aged Out No longe r eligible based on patient's age to complete this topic
--- OUTSIDE RECORDS SUMMARY | 2024-08-21 16:47 | XMS_ITS | Encounter Summary ---
Author Organization [facility] Address [address] [place] [address] Care Team Providers Care Manager Legal Name Role Phone Keron [place] MD Primary Care Provider [phone] Encounter Details Date Type Department Care Team (Late st Contact Info) Description 06/27/2018 Scanned Document GENERIC EXTERNAL DATA DEPARTMENT Provider, Francis, [address] [place] [address] Social History Tobacco Use Types Packs/Day Years Used Date Smoking Tobacco: Never Assessed Sex and Gender Information Value Date Recorded Sex Assigned at Not on file Gender Identity Not on file Sexual Orientation Not on file documented as of this encounter Plan of Treatment Not on file documented as of this encounter Visit Diagnoses Not on filedocumented in this encounter Care Teams Manager Legal Relationship Specialty Start Date End Date Keron [place] MD [address] [place] [address] [place] [address] PCP - General Internal Medicine 06/18/18 documented as of this encounter
--- OUTSIDE RECORDS SUMMARY | 2024-08-21 16:47 | XMS_ITS | Encounter Summary ---
Author Organization [facility] Address [address] [place] [address] Care Team Providers Care Seo Analyst Name Role Phone Keron [place] MD Primary Care Provider [phone] Encounter Details Date Type Department Care Team ([facility] st Contact Info) Description 04/30/2019 Telephone [facility] Urologic Surgery [place] [address] [address] Sheri De Guzman, THOMAS [address] [address] Social History Tobacco Use Types Packs/Day Years [...] on filedocumented in this encounter Care Teams Seo Analyst Relationship Specialty Start Date End Date Keron [place] MD [address] [place] [address] [place] [address] PCP - General Internal Medicine 06/18/18 documented as of this encounter
--- OUTSIDE RECORDS SUMMARY | 2024-08-21 16:47 | XMS_ITS | Encounter Summary ---
Author Organization [facility] Address [address] [place] [address] Care Team Providers Care Visualization Developer Name Role Phone Keron [place] MD Primary Care Provider [phone] Encounter Details Date Type Department Care Team (Late st Contact Info) Description 06/27/2018 Scanned Document GENERIC EXTERNAL DATA DEPARTMENT Provider, Francis, [address] [place] [address] Social History Tobacco Use Types Packs/Day Years Used Date Smoking Tobacco: Never Assessed Sex and Gender Information Value Date Recorded Sex Assigned at Not on file Gender Identity Not on file Sexual Orientation Not on file documented as of this encounter Plan of Treatment Not on file documented as of this encounter Visit Diagnoses Not on filedocumented in this encounter Care Teams Visualization Developer Relationship Specialty Start Date End Date Keron [place] MD [address] [place] [address] [place] [address] PCP - General Internal Medicine 06/18/18 documented as of this encounter
--- OUTSIDE RECORDS SUMMARY | 2024-08-21 16:47 | XMS_ITS | Encounter Summary ---
Author Organization [facility] Address [address] [place] [address] Care Team Providers Care Pilot Captain Name Role Phone Keron [place] MD Primary Care Provider [phone] Encounter Details Date Type Department Care Team (Late st Contact Info) Description 04/23/2019 Scanned Document [facility] Urologic Surgery [place] [address] [phone] Johnny [place] MD [address] [address] Social History Tobacco Use Types Packs/Day Years [...] on filedocumented in this encounter Care Teams Pilot Captain Relationship Specialty Start Date End Date Keron [place] MD [address] [place] [address] [place] [address] PCP - General Internal Medicine 06/18/18 documented as of this encounter
--- OUTSIDE RECORDS SUMMARY | 2024-08-21 16:47 | XMS_ITS | Encounter Summary ---
Author Organization [facility] Address [address] [place] [address] Care Team Providers Care Campus Ambassador Name Role Phone Keron [place] MD Primary Care Provider + [phone] Reason for Visit * Reason Onset Date Comments Cancer Consult Appt 06/18/2018 Encounter Details Date Type Department Care Team ([facility] Contact Info) Description 06/18/[address] [place] [phone] Keron [place] MD [address] [place] [address] Cancer Consult Appt Social History Tobacco Use Types Packs/Day Years Used Date Smoking Tobacco: Never Assessed Sex and Gender Information Value Date Recorded Sex Assigned at Not on file Gender Identity Not on file Sexual Orientation Not on file documented as of this encounter Miscellaneous Notes * Telephone Encounter - Dory Ross RN - 06/18/2018 4:04 PM EST Patient will keep 07/17/18 appointment due to the fact that his will be away the previous week. * Telephone Encounter - Diya Kenny - 06/18/2018 3:50 PM EST Scheduled pt for 07/17/[address] [place] for Cancer Consult. Patient concerned if this is too lateof a date. Dr [place] does not have anything sooner. Is 07/17/2018 ok or does he need to be squeezed in somewhere sooner? Please call pt ph: [phone]. Thank you. documented in this encounter Plan of Treatment Not on file documented as of this encounter Visit Diagnoses Not on filedocumented in this encounter Care Teams Campus Ambassador Relationship Specialty Start Date End Date Keron [place] MD [address] [place] [address] PCP - General Internal Medicine 06/18/18 documented as of this encounter
--- OUTSIDE RECORDS SUMMARY | 2024-08-21 16:47 | XMS_ITS | Encounter Summary ---
Author Organization [facility] Address [address] [place] [address] Care Team Providers Care Matcher Leather Parts Name Role Phone Keron [place] MD Primary Care Provider [phone] Encounter Details Date Type Department Care Team (Late st Contact Info) Description 06/18/2018 Scanned Document [address] [phone] Keron [place] MD [address] [place] [address] Social History Tobacco Use Types Packs/Day Years Used Date Smoking Tobacco: Never Assessed Sex and Gender Information Value Date Recorded Sex Assigned at Not on file Gender Identity Not on file Sexual Orientation Not on file documented as of this encounter Plan of Treatment Not on file documented as of this encounter Visit Diagnoses Not on filedocumented in this encounter Care Teams Matcher Leather Parts Relationship Specialty Start Date End Date Keron [place] MD [address] [place] [address] PCP - General Internal Medicine 06/18/18 documented as of this encounter
--- OUTSIDE RECORDS SUMMARY | 2024-08-21 16:47 | XMS_ITS | Patient Health Record ---
Author Organization [facility] Address [address] [place] [address] Care Team Providers Care Pattern Carrier Name Role Phone TERESAOMAYRA EUSEBIO Primary Care Provider Delmar Carlos Jr Unavailable Allergies Allergen (clinical drug ingredient) Drug/Non Drug Allergy documented on EMR Reaction Allergy Type Onset Date Status seasonal (uncoded) Unknown Allergy A ctive Reason For Referral No Information Medications Medication SIG (Take, Route, Frequency, Duration) Notes Start Date End Date Status Metoprolol Succinate ER Active Crestor Active Multi Vitamin/Minerals Orally Active Lisinopril Active Aspir-81 Active MiraLax (colon prep) 17 GM/SCOOP mixed with Gatorade or Crystal Light Orally begin at 5:00 p.m. the day before the procedure for 1 day 10/02/2022 Active MoviPrep 100 GM as directed before colonoscopy Orally for 1 dose 11/27/2013 Active Immunizations Vaccine Route Administration Date Status Comme nts Influenza Unknown 10/02/2022 Refused Problems Problem Type SNOMED Code ICD Code Onset Dates Problem Status W/U Status Risk Notes Problem 697674276 Colon cancer screening (Z12.11) Active confirmed Problem 872867743 Long-term use of aspirin therapy (Z79.82) Active confirmed Plan Of Treatment Future Test Test Name Order Date COLONOSCOPY 11/27/2013 COLONOSCOPY 10/02/2022 Insurance Providers Payer Name Payer Address Payer Phone Subscriber Number Group Number Insured Name Patient Relationship to Insured Coverage Start Date Coverage End Date MEDICARE OF [place] [address] [place] [address] [id number] AMBROSE MaguireESEL Self - patient is the insured [employer] ATTN CLAIMS [address] [place] [address] [id number] GENIA BURGOS Self - patient is the insured Medical (General) History Medical History History ICD Code hypertension Coronary artery disease with history of CO and CABG x3 and RCA stent. Hyperlipidemia prostate cancer, prostatectomy Surgical History Surgery Date(Month/Year) CABG x3, stent placement 08/20 2010 Prostatectomy Carpal tunnel repair
--- OUTSIDE RECORDS SUMMARY | 2024-08-21 16:47 | XMS_ITS | Encounter Summary ---
Author Organization [facility] Address [address] [place] [address] Care Team Providers Care Machine Puller Name Role Phone K[place] MD Primary Care Provider [phone] Encounter Details Date Type Department Care Team ([facility] st Contact Info) Description 04/03/2019 Telephone [facility] Urologic Surgery [place] [address] [phone] Johnny [place] MD [address] [address] Social History Tobacco Use Types Packs/Day Years [...] encounter Miscellaneous Notes * Telephone Encounter - Bethel Cowart - 04/03/2019 10:31 AM EDT [facility]ultana # [phone] called stating they faxed over request for medical records on 03/31/19 to [phone] and have not heard anything. Caller needs records from 03/28/19. Please fax to [phone] - ATTN: Bertin documented in this encounter Plan of Treatment Not on file documented as of this encounter Visit Diagnoses Not on filedocumented in this encounter Care Teams Machine Puller Relationship Specialty Start Date End Date Keron [place] MD [address] [place] [address] PCP - General Internal Medicine 06/18/18 documented as of this encounter
== END 2024-08-21 14:51 | disposition home or self-care (01) ==
LOC: HO.HCS 14:03
PROVIDERS: PCP Nurse Practitioner Family; Visit Provider Internal Medicine Cardiovascular Disease
DX: I25.10 Atherosclerotic heart disease of native coronary artery without angina pectoris (principal); I10 Essential (primary) hypertension
CPT/HCPCS: 93010; 99214; G2211

== ENCOUNTER → 2024-08-21 14:03 | Outpatient (BNVA) | payer MEDICARE, SELFPAY | PROVIDERS: PCP Nurse Practitioner Family; Visit Provider Internal Medicine Cardiovascular Disease | DX: I25.10 Atherosclerotic heart disease of native coronary artery without angina pectoris (principal); I10 Essential (primary) hypertension; R94.31 Abnormal electrocardiogram [ECG] [EKG]; R00.1 Bradycardia, unspecified | CPT/HCPCS: 93005; 99212 ==

== ENCOUNTER 2024-11-05 09:51 | Outpatient (AMB) | payer MEDICARE, SELFPAY ==
[2024-11-05 09:59] VITALS: BP 132/80; PULSE 60; O2SAT 98; BMI 26.3
--- NOTE | 2024-11-05 09:59 | A.OFFPC_ITS ---
Vital Signs 11/05/24 09:59 Height 5 ft 10 in Weight 183 lb BMI 26.3 BP 132/80 Blood Pressure Location Rt brachial Position Sitting Pulse 60 Pulse Source Pulse Oximeter Pulse Oximetry (%) 98 Oxygen Delivery Method Room Air Intake Visit Reasons: follow up Hides And Skins Colorer Required: No Allergies amoxicillin Adverse Reaction (Verified 11/05/24 10:01) Unknown Medication List - Last Reconciled 11/05/24 by DOMENIC ValdovinosP- amlodipine 5 mg PO DAILY aspirin (Adult Aspirin Regimen) 81 mg PO DAILY atorvastatin 80 mg PO DAILY cholecalciferol (vitamin D3) 50 mcg PO DAILY ezetimibe 10 mg PO DAILY isosorbide mononitrate ER 30 mg PO DAILY metoprolol succinate ER 25 mg PO DAILY multivitamin 1 tab PO DAILY nitroglycerin (Nitrostat) 0.4 mg sublingual Q5M PRN vitamin B complex (B Complex-Vitamin B12 tablet) 1 tab PO DAILY Tobacco use date assessed: 11/05/24 Fall risk assessment: No Falls in past year Last assessed Fall Risk: 11/05/24 Dental Screening Dental Screen Date: 11/05/24 Did you have a dental visit in the last 12 months?: Yes Did you have a dental problem in the last 6 months where you did not have access to dental care?: No Was dental information given to patient?: Patient has dentist HPI follow up 2 HPI Details Chief Complaint The patient is here for a follow-up on multiple chronic conditions. History of Present Illness The patient is a 74-year-old male presenting for follow-up concerning his chronic conditions: hypertension, dyslipidemia, coronary artery disease, and prostate cancer. Previously, a PET scan revealed a small cancerous spot in the left clavicular region, for which he is receiving regular oncology care (pt reported, missing PET scan). Incidental findings of carotid calcifications and plaque were noted earlier without any audible bruits today. He maintains an active lifestyle and is engaged in continuous follow-up with specialized care for his cardiovascular and oncological health. Social History - Patient remains fairly physically acti ve. Health Maintenance - Regular follow-up with cardiology and oncology teams. - PET scan previously performed for pros kc cancer management. - Recommended ultrasound of bilateral ca rotids discussed. Review of Systems - Cardiovascular: Reports following up w ith cardiology regularly. - Oncology: Reports following up with on cology regularly. - General: Reports maintaining physical activity. Physical Exam General: Cooperative, healthy appearing, comfortable, no acute distress and well developed Orientation: Patient oriented x3 Limitations: No limitations Head: Normal to inspection Ears: Hearing grossly normal bilaterally Nose: Normal external nose present Face and sinus: Normal facial exam Eyes: Appearance normal, both eyes and all related structures Neck: Normal visual inspection and Yes full ROM Respiratory: Lungs were fairly clear. Normal respiratory effort and able to speak in complete sentences. Clear to auscultation bilaterally Cardiovascular: Regular rate and rhythm. Normal S1 and S2. No bruits auscultated today GI: Normal to inspection. Soft to palpation and nontender Skin: No rashes or lesions noted Neuro: Patient oriented x3 Extremities: Normal to inspection Results - Tests: PET scan showed cancerous spot in the left clavicular region. - Incidental finding of carotid calcific ations and plaque. Plan I recommend an ultrasound of the bilateral carotids to investigate previously noted calcifications and plaque. The patient will continue with regular oncology follow-ups for clavicular metastasis and maintain an active lifestyle for cardiovascular benefits. Blood pressure and lipid levels will be monitored with potential adjustments in collaboration with the cardiology team. Coordination among his care providers will ensure comprehensive management of his chronic conditions. Discussion Notes During our discussion, I emphasized the importance of continued oncology and cardiology follow-ups to manage his prostate cancer and cardiovascular health. We discussed obtaining an ultrasound for his carotids to evaluate plaque development. The benefits of maintaining an active lifestyle were conveyed as significant for his cardiovascular well-being, and he was advised to remain engaged with his current care teams for ongoing symptom management and disease monitoring. Patient Instructions - Continue following up with your oncolo gy and cardiology teams. - Maintain physical activity as per your current routine. - Schedule and complete the ultrasound f or your carotids as discussed. - Monitor your blood pressure and any sy mptoms related to your conditions. [facility] Medical History Osteoarthritis PAF (paroxysmal atrial fibrillation) Anemia Prostate CA Dyslipidemia HTN (hypertension) Chronic renal disease CAD (coronary artery disease) NSTEMI (non-ST elevated myocardial infarction) Surgical History S/P cardiac cath (~05/2020) Hx of prostatectomy Stented coronary artery Hx of CABG (~08/2018) Family History Father CVD (cardiovascular disease) Mother No problems noted. Brother CVD (cardiovascular disease) Social History Housing: House Patient Tobacco Use Status: Former Tobacco user Years Smoked: 40 years ago e-Cigarette/Vaping Use: Never Used Second Hand Smoke Exposure: No service: No Current occupational status: retired Cognitive needs: No Hearing needs: No Vision needs: No Questionnaire PHQ-9 Over the last 2 weeks, how often have you been bothered by any of the following problems? 1. Little interest or pleasure in doing things: not at all 2. Feeling down, depressed, or hopeless: not at all 3. Trouble falling or staying asleep, or sleeping too much: not at all 4. Feeling tired or having little energy: not at all 5. Poor appetite or overeating: not at all 6. Feeling bad about yourself - or that you are a failure or have let yourself or your family down: not at all 7. Trouble concentrating on things, such as reading the newspaper or watching television: not at all 8. Moving or speaking so slowly that other people could have noticed. Or the opposite - being so fidgety or restless that you have been moving around a lot more than usual: not at all 9. Thoughts that you would be better off or of hurting yourself in some way: not at all Total score: 0 Depression Screening Interpretation: Negative Depression Screening Done: Yes 83860 - PHQ-9 Billing: Yes Source: Developed by Drs. Lalito Geronimo, Dariana Hammond, Ezequiel Nuñez and colleagues, with an educational mingo from [employer]. Thrive Questionnaire Date Thrive assessed: 11/05/24 I am a: Patient What is your living situation today?: I have a steady place to live Within the past 12 months, did the food you bought not last and you didn't have the money to get more?: Never true Within the past 12 months, did you worry whether your food would run out before you got money to buy more?: Never true Do you have trouble paying for medicines?: No Do you have trouble getting transportation to medical appointments?: No Do you have trouble paying your heating and electricity bill?: No Do you have trouble taking care of your child, family member or friend?: No Do you have trouble with day-to-day activities such as bathing, preparing meals, shopping, managing finances, etc.?: No Are you currently unemployed and looking for a job?: No Are you interested in more education?: No Please select the resources that you would like help with: None Currently or been in a relationship where the following occur: No concerns reported THRIVE Score: 0 AUDIT C Alcohol Use Questionnaire (AUDIT-C) 1. How often do you have a drink containing alcohol?: Never 3. How often do you have six or more drinks on one occasion?: Never Total Score: 0 Score Reviewed/Action Taken: Yes ZAIDA-7 AMB Questionnaire ZAIDA-7 Date ZAIDA - 7 assessed: 11/05/24 Feeling nervous, anxious, or on edge: 0 = Not at all Not being able to stop or control worryin = Not at all Worrying too much about different things: 0 = Not at all Trouble relaxin = Not at all Being so restless that it is hard to sit still: 0 = Not at all Becoming easily annoyed or irritable: 0 = Not at all Feeling afraid as if something awful might happen: 0 = Not at all Total ZAIDA-7 score (0-4 normal; 5-9 mild; 10-14 moderate; 15-21 severe): 0 Source: Developed by Drs. Lalito Geronimo, Dariana Hammond, Ezequiel Nuñez and colleagues, with an educational mingo from [employer]. ZAIDA-7 Assessment Billing ZAIDA-7 Assessment Tool: ZAIDA-7 Assessment 14733 Physical exam (Primary Care) Vital Signs: Last Vital Signs Pulse 60 11/05/24 09:59 BP 132/80 11/05/24 09:59 Pulse Ox 98 11/05/24 09:59 Oxygen Delivery Method Room Air 11/05/24 09:59 BMI result Body Mass Index 26.3 Tobacco/Smoking Status: Tobacco use Status Tobacco use date assessed 11/05/24 11/05/24 10:05 Patient Tobacco Use Status Former Tobacco user 11/05/24 10:05 e-Cigarette/Vaping Use Never Used 11/05/24 10:05 PHQ-9: PHQ-9 Score PHQ-9: Total score 0 11/05/24 10:05 Depression Screening Interpretation: Negative Thrive Assessment: Date of Thrive Assessment Date Thrive assessed 11/05/24 11/05/24 10:05 Currently or been in a relationship where the following occur: No concerns reported Coding Level of Care Code Est Pt Level 3 (08129) Diagnoses HTN (hypertension) I10 Dyslipidemia E78.5 CAD (coronary artery disease) I25.10 Additional Codes ZAIDA-7 Assessment Billing - ZAIDA-7 Assessment Tool: ZAIDA-7 Assessment 25477 ([id number]) PHQ-9 - 07650 - PHQ-9 Billing: Yes ([id number]) Assessment & Plan Assessment & Plan (1) HTN (hypertension): Code(s): I10 - Essential (primary) hypertension Category: Medical (2) Dyslipidemia: Code(s): E78.5 - Hyperlipidemia, unspecified Category: Medical (3) CAD (coronary artery disease): Code(s): I25.10 - Atherosclerotic heart disease of [place] coronary artery without angina pectoris Category: Medical Plan . Orders: Orders TSH reflex Free T4 Today E78.5 - Hyperlipidemia, unspecified, I10 - Essential (primary) hypertension UA CC w/rflx Micro + Cult Today E78.5 - Hyperlipidemia, unspecified, I10 - Essential (primary) hypertension Lipid Panel Today E78.5 - Hyperlipidemia, unspecified, I10 - Essential (primary) hypertension Complete Blood Count Auto Diff Today E78.5 - Hyperlipidemia, unspecified, I10 - Essential (primary) hypertension Comprehensive [place]. Panel Fast Today E78.5 - Hyperlipidemia, unspecified, I10 - Essential (primary) hypertension US carotid duplex BI Today I25.10 - Atherosclerotic heart disease of [place] coronary artery without angina pectoris
--- OUTSIDE RECORDS SUMMARY | 2024-11-05 10:24 | XMS_ITS | Encounter Summary ---
Author Organization [facility] Address [address] [place] [address] Care Team Providers Care Lathe Setup Operator Name Role Phone Keron Monroe MD Primary Care Provider [phone] Encounter Details Date Type Department Care Team ([facility] st Contact Info) Description 04/03/2019 Telephone [facility] Urologic Surgery [place] [address] [id number] Johnny York MD [address] [address] Social History Tobacco Use Types Packs/Day Years [...] Recorded Sex Assigned at Not on file Legal Sex Male 1:48 PM EST Gender Identity Not on file Sexual Orientation Not on file documented as of this encounter Miscellaneous Notes * Telephone Encounter - Bethel Cowart - 04/03/2019 10:31 AM EDT Kehinde sultana # [phone] called stating they faxed over request for medical records on 03/31/19 to [phone] and have not heard anything. Caller needs records from 03/28/19. Please fax to [phone] - ATTN: Bertin documented in this encounter Plan of Treatment Not on file documented as of this encounter Visit Diagnoses Not on filedocumented in this encounter Care Teams Lathe Setup Operator Relationship Specialty Start Date End Date Keron Monroe MD [address] [place] [address] PCP - General Internal Medicine 06/18/18 documented as of this encounter
== END 2024-11-05 11:07 | disposition home or self-care (01) ==
LOC: HO.HMCC 09:52
PROVIDERS: PCP Nurse Practitioner Family; Visit Provider Nurse Practitioner Family
DX: I10 Essential (primary) hypertension (principal); E78.5 Hyperlipidemia, unspecified; I25.10 Atherosclerotic heart disease of native coronary artery without angina pectoris

== ENCOUNTER 2024-11-05 09:51 | Outpatient (REF) | payer MEDICARE, SELFPAY ==
[2024-11-05 13:15] LABS: Appearance Urine Turbid; Color Urine Dark Yellow; Glucose Urine UA Negative (Negative); Leukocyte Esterase Urine Negative (Negative); Nitrite Urine Negative (Negative); Specific Gravity - Urine 1.025 (1.005-1.025); Urine Blood Negative (Negative); Urine Ketones Trace mg/dL (Negative); Urine Protein Negative (Neg-Trace)
[2024-11-05 13:20] LABS: MANUAL DIFF FLAG NO
[2024-11-05 13:31] LABS: Basophils Percent Auto 0.5 % (0-2); Eosinophils Absolute Auto 0.1 X10*3/uL (0.0-0.4); Hematocrit 39.8 % (42.0-52.0); Hemoglobin 13.7 g/dl (14.0-18.0); Imm Gran Abs Auto 0.02 X10*3/uL (0.00-0.03); Imm Gran Pct Auto 0.3 % (0.0-0.4); Lymphocytes Absolute Auto 1.1 X10*3/uL (1.2-4.9); Lymphocytes Percent Auto 17.1 % (20-40); Mean Corpuscular HGB Conc 34.4 g/dl (31.0-36.0); Mean Corpuscular Hemoglobin 32.7 pg (27.0-33.0); Monocytes Absolute Auto 0.8 X10*3/uL (0.1-1.2); Monocytes Percent Auto 12.5 % (2-11); Neutrophils Absolute Auto 4.3 x10*3/uL (2.0-8.3); Neutrophils Percent Auto 68.6 % (45-73); Platelet Count 129 X10*3/uL (160-400); Red Blood Count 4.19 X10*6/uL (4.60-5.80); Red Cell Distribution Width 13.3 % (11.0-16.0); White Blood Count 6.2 X10*3/uL (4.8-10.8)
[2024-11-05 14:45] LABS: Alanine Aminotransferase 21 U/L (0-40); Albumin Level 4.5 g/dL (3.5-5.0); Alkaline Phosphatase 45 U/L (39-117); Anion Gap 10 (12-20); Aspartate Amino Transferase 35 U/L (5-37); Bilirubin Total 1.1 mg/dL (0.0-1.0); Blood Urea Nitrogen 30 mg/dL (9-16); Calcium 9.2 mg/dL (8.4-10.2); Carbon Dioxide 27 mmol/L (22-29); Chloride 109 mmol/L (96-108); Cholesterol 128 mg/dL (<200); Estimated Glomerular Filt Rate 60; Glucose Fasting 91 mg/dL (60-99); HDL Cholesterol 46 mg/dL (>40); LDL Cholesterol Calculated 69 mg/dL (<100); Potassium 4.2 mmol/L (3.3-5.1); Sodium 142 mmol/L (135-145); TSH reflex Free T4 0.55 uIU/mL (0.32-4.0); Triglycerides 68 mg/dL (<150)
== END 2024-11-05 09:52 | disposition home or self-care (01) ==
LOC: HO.HMGCLDS 09:51
PROVIDERS: PCP Nurse Practitioner Family; Visit Provider Nurse Practitioner Family
DX: I10 Essential (primary) hypertension (principal); E78.5 Hyperlipidemia, unspecified; I25.10 Atherosclerotic heart disease of native coronary artery without angina pectoris
CPT/HCPCS: 36415; 80053; 80061; 81003; 84443; 85025; 96127; 99212

== ENCOUNTER 2024-12-31 08:39 | Outpatient (REF) | payer MEDICARE, SELFPAY ==
--- NOTE | ~2024-12-31 | US_ITS ---
CLINICAL HISTORY: I25.10 - Atherosclerotic heart disease of [place] coronary artery without... US Bilateral Carotid Duplex Comparison: None provided Findings: There is plaque within the carotid bulbs. Color doppler and spectral tracings normal. Peak systolic velocities: Right CCA: 104 cm/s. Right ICA: 91 cm/s. ICA/CCA ratio: Normal. Right ECA: Unremarkable. Right vertebral artery flow antegrade. Left CCA: 84 cm/s. Left ICA: 72 cm/s. ICA/CCA ratio: Normal. Left ECA: Unremarkable. Left vertebral artery flow antegrade. IMPRESSION: Normal carotid velocities, no significant stenosis (0-49% stenosis). This document has been electronically signed by: Bienvenido Meadows MD on 12/31/2024 13:26:07
--- OUTSIDE RECORDS SUMMARY | 2024-12-31 08:53 | XMS_ITS | Encounter Summary ---
Author Organization [facility] Address [address] [place] [address] Care Team Providers Care Head Charger Name Role Phone Keron Monroe MD Primary Care Provider [phone] Encounter Details Date Type Department Care Team (Late st Contact Info) Description 12/04/2019 Scanned Document [facility] Urologic Surgery [place] [address] [facility] [address] [place] [phone] [place], [place] [address] [place] [address] Social History Tobacco Use Types Packs/Day Years [...] filedocumented in this encounter Care Teams Head Charger Relationship Specialty Start Date End Date Keron Monroe MD [address] [place] [address] PCP - General Internal Medicine 06/18/18 documented as of this encounter
--- OUTSIDE RECORDS SUMMARY | 2024-12-31 08:53 | XMS_ITS | Clinical Summary ---
Author Organization [facility] Address [address] [place] [address] Care Team Providers Care Wire Transfer Clerk Name Role Phone Unavailable Primary Care Provider [...] 64 11/10/2019 9:24 AM EDT Temperature 36.7 C (98 F) 11/10/2019 9:24 AM EDT Respiratory Rate 14 [...] Fall Risk Assessment 2015 Influenza Vaccine (#1) 2025 RSV Adult > 60+ Yrs or Pregn ant (1 - 1-dose 75+ series) 2025 Hepatitis B Vaccines Aged Out No long er eligible based on patient's age to complete this topic RSV Ped < 20 months Aged Out No longe r eligible based on patient's age to complete this topic
--- OUTSIDE RECORDS SUMMARY | 2024-12-31 08:53 | XMS_ITS ---
Author Organization [facility] Address [address] [facility] [address] [place] [address] Phone Care Team Providers Care Computer Graphic Artist Name Role Phone Hawk Charles NP Primary Care Provider + Rhett Chanel MD Unavailable [phone] Laura Cunningham MD Unavailable [phone] Morris Aguirre MD Unavailable Active Problems Problem Noted Date Diagnosed Date Malignant neoplasm of prostate Cancer Staging:Pathologic stage from 03/28/2019:Stage OFELIA(pT3b, pN1, cM0, Grade Group: 2, 03/28/19) - Signed by Rhett Chanel MD on 12/21/2020 Current Treatment and Therapy Plans No current plan information found. Past Treatment and Therapy Plans Oncology Therapy Plan Plan Name Start Date Discontinue Date Treatment Medications Discontinue Reason Plan Provider LEUPROLIDE ACETATE 1 MONTH (LUPRON DEPOT 1 MONTH) 01/05/2021 02/02/2022 leuprolide (LUPRON) a. Therapy Complete Rhett Chanel MD
--- OUTSIDE RECORDS SUMMARY | 2024-12-31 08:53 | XMS_ITS ---
Author Name [facility] Organization Unknown History of Medication Use Medication Directions Dispensed Refills Start Date End Date Stat aspirin enteric coated (ECOTRIN LOW STRENGTH) 81 MG EC tablet Continue to take one tab daily 03/29/2019 active oxyCODONE (ROXICODONE) 5 MG immediate release tablet Take 1 tablet (5 mg total) by mouth every 4 (four) hours as needed for moderate pain. Max Daily Amount: 30 mg 03/29/2019 active ticagrelor (BRILINTA) 90 MG tablet Take 1 tablet (90 mg total) by mouth 2 (two) times a day. Restart in 5 days 03/29/2019 active oxybutynin (DITROPAN-XL) 10 MG 24 hr tablet Take 1 tablet (10 mg total) by mouth daily as needed (Take as needed for bladder spasms (urgency of urination)). 03/28/2019 active atorvastatin (LIPITOR) 80 MG tablet Take 80 mg by mouth daily. active coenzyme Q10 (CO Q 10) 100 MG capsule Take 100 mg by mouth daily. active Krill Oil 1000 MG Cap Take by mouth daily. active metoPROLOL SUCCINATE (TOPROL-XL) 25 MG 24 hr tablet Take 25 mg by mouth daily. active Multiple Vitamin tablet Take 1 tablet by mouth daily. active Problems Problem Status Onset Date Problem Type Date of Resoluti on Source History of prostate cancer active 2019-04-04 [facility]
--- OUTSIDE RECORDS SUMMARY | 2024-12-31 08:53 | XMS_ITS | Patient Health Record ---
Author Organization [facility] Address [address] [place] [address] Care Team Providers Care Careers Counsellor Name Role Phone TERESAOMAYRA EUSEBIO Primary Care [...] Problem Status W/U Status Risk Notes Problem [id number] Colon cancer screening (Z12.11) Active confirmed Problem [id number] Long-term use of aspirin therapy (Z79.82) Active confirmed Plan Of Treatment Future Test Test Name Order Date COLONOSCOPY 11/27/2013 COLONOSCOPY 10/02/2022 Insurance Providers Payer Name Payer Address Payer Phone Subscriber Number Group Number Insured Name Patient Relationship to Insured Coverage Start Date Coverage End Date MEDICARE OF [place] [address] [place] [address] [id number] AMBROSE MaguireESEL Self - patient is the insured [employer] ATTN CLAIMS [address] [place] [address] [phone] [id number] GENIA BURGOS Self - patient is the insured Medical (General) History Medical History History ICD Code hypertension Coronary artery disease with history of [place] and CABG x3 and RCA stent. Hyperlipidemia prostate cancer, prostatectomy Surgical History Surgery Date(Month/Year) CABG x3, stent placement 08/20 2010 Prostatectomy Carpal tunnel repair
== END 2024-12-31 08:40 | disposition home or self-care (01) ==
LOC: HO.US 08:39
PROVIDERS: PCP Nurse Practitioner Family; Visit Provider Nurse Practitioner Family
DX: I25.10 Atherosclerotic heart disease of native coronary artery without angina pectoris (principal); I10 Essential (primary) hypertension; I21.4 Non-ST elevation (NSTEMI) myocardial infarction; I65.23 Occlusion and stenosis of bilateral carotid arteries
CPT/HCPCS: 93880

== ENCOUNTER → 2024-12-31 08:44 | Outpatient (BNV) | payer MEDICARE, SELFPAY | PROVIDERS: PCP Nurse Practitioner Family; Visit Provider Nuclear Medicine | DX: I65.23 Occlusion and stenosis of bilateral carotid arteries (principal) | CPT/HCPCS: 93880 ==

== ENCOUNTER 2025-01-01 08:06 | Outpatient (REF) | payer MEDICARE, SELFPAY | END 2025-01-01 08:07 | disposition home or self-care (01) | LOC: HO.LNP 08:06 | PROVIDERS: PCP Nurse Practitioner Family; Visit Provider Physician Assistant Medical | DX: R31.0 Gross hematuria (principal); N39.0 Urinary tract infection, site not specified; R30.0 Dysuria; I10 Essential (primary) hypertension; R10.32 Left lower quadrant pain; M54.9 Dorsalgia, unspecified; G89.29 Other chronic pain; Z13.9 Encounter for screening, unspecified; Z79.899 Other long term (current) drug therapy; Z79.52 Long term (current) use of systemic steroids; Z85.46 Personal history of malignant neoplasm of prostate | CPT/HCPCS: 81003; 87086; 99212 ==

== ENCOUNTER 2025-01-01 08:06 | Outpatient (AMB) | payer MEDICARE, SELFPAY ==
--- OUTSIDE RECORDS SUMMARY | 2025-01-01 08:12 | XMS_ITS | Encounter Summary ---
Author Organization [facility] Address [address] [place] [address] Care Team Providers Care Axminster Weaver Name Role Phone Keron Monroe MD Primary Care Provider [phone] Encounter Details Date Type Department Care Team (Late st Contact Info) Description 12/04/2019 Scanned Document [facility] Urologic Surgery [place] [address] [facility] [address] [place] [phone] [place], [place] [address] [place] [address] Social History Tobacco Use Types Packs/Day Years [...] on filedocumented in this encounter Care Teams Axminster Weaver Relationship Specialty Start Date End Date Keron Monroe MD [address] [place] [address] PCP - General Internal Medicine 06/18/18 documented as of this encounter
--- OUTSIDE RECORDS SUMMARY | 2025-01-01 08:13 | XMS_ITS ---
Author Organization [facility] Address [address] [facility] [address] [place] [address] Phone Care Team Providers Care Laboratory Secretary Name Role Phone Hawk Charles NP Primary Care Provider + Rhett Chanel MD Unavailable Laura Cunningham MD Unavailable [phone] Morris Aguirre MD Unavailable Active Problems [...]
--- OUTSIDE RECORDS SUMMARY | 2025-01-01 08:13 | XMS_ITS | Clinical Summary ---
Author Organization [facility] Address [address] [place] [address] Care Team Providers Care Noc Technician Name Role Phone Unavailable Primary Care Provider [...]
--- OUTSIDE RECORDS SUMMARY | 2025-01-01 08:13 | XMS_ITS | Patient Health Record ---
Author Organization [facility] Address [address] [place] [address] Care Team Providers Care Automatic Shirring Machine Operator Name Role Phone TERESAOMAYRA EUSEBIO Primary Care [...] Problem Status W/U Status Risk Notes Problem [id number] Colon cancer screening (Z12.11) Active confirmed Problem [id number] Long-term use of aspirin therapy (Z79.82) Active confirmed Plan Of Treatment Future Test Test Name Order Date COLONOSCOPY 11/27/2013 COLONOSCOPY 10/02/2022 Insurance Providers Payer Name Payer Address Payer Phone Subscriber Number Group Number Insured Name Patient Relationship to Insured Coverage Start Date Coverage End Date [place]ARE OF [place] [address] [place] [address] [id number] AMBROSE MaguireESEL Self - patient is the insured [employer] ATTN CLAIMS [address] [place] [address] [id number] GENIA BURGOS Self - patient is the insured Medical (General) History Medical History History ICD Code hypertension Coronary artery disease with history of [place] and CABG x3 and RCA stent. Hyperlipidemia prostate cancer, prostatectomy Surgical History Surgery Date(Month/Year) CABG x3, stent placement 08/20 2010 Prostatectomy Carpal tunnel repair
[2025-01-01 08:25] VITALS: BP 144/78; PULSE 58; TEMP 36.7; O2SAT 97; BMI 25.5
--- NOTE | 2025-01-01 08:25 | MHC.OFFWIV ---
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 - The patient reports passing blood in the urine twice in the last week and a half, with the most recent occurrence last night. - He has been noticing blood streaks in the toilet and not in the urine. His urine has been yellow. 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 - The patient experiences a burning sensation at the end of his penis. - He denies any history of kidney stones and has not been under the care of a urologist. - The patient is on metoprolol, amlodipine, and aspirin for hypertension. - He reports chronic back pain, which he associates with a history of shingles, and experiences pain after walking three to four miles daily. - He has some pain in the left lower abd with no radiation or flank pain. - He has an oncologist in [place]. - He denies fever, chills, nausea, vomiting, CP, SOB, rashes, dysuria, penile discharge, or trauma. - He denies bruising. Physical Exam General: Cooperative, healthy appearing, comfortable, no acute distress and well developed Respiratory: Normal respiratory effort and able to speak in complete sentences. Clear to auscultation bilaterally. No w/r/r noted. Cardiovascular: Regular rate and rhythm. Normal S1 and S2 GI: Normal to inspection. Soft to palpation and nontender, no guarding or rebound tenderness noted. No CVA tenderness noted. Skin: No rashes or lesions noted Patient was informed and verbally consented to the use of an ambient scribe for clinic note documentation during this visit. [facility] Medical History (Updated 11/21/24 @ 13:53 by Hawk Charles, [facility]) Osteoarthritis PAF (paroxysmal atrial fibrillation) Anemia Prostate CA Dyslipidemia HTN (hypertension) Chronic renal disease CAD (coronary artery disease) NSTEMI (non-ST elevated myocardial infarction) Surgical History S/P cardiac cath (~05/2020) Hx of prostatectomy Stented coronary artery Hx of CABG (~08/2018) Family History Father CVD (cardiovascular disease) Mother No problems noted. Brother CVD (cardiovascular disease) Social History Housing: House Patient Tobacco Use Status: Former Tobacco user Years Smoked: 40 years ago e-Cigarette/Vaping Use: Never Used Second Hand Smoke Exposure: No service: No Current occupational status: retired Cognitive needs: No Hearing needs: No Vision needs: No Review of Systems Const All systems reviewed & are unremarkable except as noted in HPI and below Physical Exam Vital Signs: Last Vital Signs Temp 98.1 F 01/01/25 08:25 Pulse 58 01/01/25 08:25 BP 144/78 H 01/01/25 08:25 Pulse Ox 97 01/01/25 08:25 Oxygen Delivery Method Room Air 01/01/25 08:25 BMI result Body Mass Index 25.5 Assessment & Plan Assessment & Plan (1) Hematuria: Code(s): R31.9 - Hematuria, unspecified Qualifiers: Hematuria type: gross Qualified Code(s): R31.0 - Gross hematuria Plan Most likely UTI vs bladder cancer? Plan - A urine culture was ordered to investigate the cause of hematuria and dysuria. - Discussion with the patient's primary care physician, Dr. Charles, was planned to consider further referrals or interventions. - Follow up with his oncologist Orders: Orders Urine Culture Today N39.0 - Urinary tract infection, site not specified Coding Level of Care Code Est Pt Level 4 (25762) Diagnoses Gross hematuria R31.0 Hematuria type: gross
== END 2025-01-01 09:47 | disposition home or self-care (01) ==
PROVIDERS: PCP Nurse Practitioner Family; Visit Provider Physician Assistant Medical
DX: R31.0 Gross hematuria (principal); Z13.9 Encounter for screening, unspecified